=== PATIENT | female | born 1985 | race Caucasian/White ===

== ENCOUNTER 2020-08-14 10:11 | Emergency (ER) | payer OTHER ==
[2020-08-14] MEDS ORDERED: Fluorescein Opthalmic Strip ONE (11:15)
[2020-08-14] MEDS ORDERED: Proparacaine 0.5% Opth 15 ML BOT ONE (11:15)
== END 2020-08-14 12:16 | disposition home or self-care (01) ==
LOC: ERS 10:11
DX: H10.9 Unspecified conjunctivitis (principal); F31.81 Bipolar II disorder; F41.9 Anxiety disorder, unspecified; Z79.899 Other long term (current) drug therapy
CPT/HCPCS: 99283

== ENCOUNTER 2021-03-15 16:24 | Inpatient (IN) | payer OTHER ==
[2021-03-15 17:30] LABS: #Basophils 0.1 thou/uL (0.0-0.2); #Eosinphils 0.2 thou/uL (0.0-0.7); #Monocytes 0.6 thou/uL (0.11-0.59); #Neutrophils 3.8 thou/uL (1.40-6.50); %Basophils 1.1 % (0.0-1.0); %Eosinophils 2.8 % (0.0-10.0); %Monocytes 8.5 % (0.0-10.0); %Neutrophils 57.6 % (42.0-75.0); Mean Corpuscular HGB CONC 30.7 g/dL (32.0-36.0); Mean Corpuscular Hemoglobin 26.4 pg (27.0-31.0); Mean Platelet Volume 7.7 fL (7.4-10.4); Platelet Count 332 thou/uL (130-400); RBC Distribution Width 16.1 % (11.5-14.5); Red Blood Cell (RBC) Count 4.93 mill/uL (4.20-5.40); White Blood Cell (WBC) Count 6.7 thou/uL (4.8-10.8)
[2021-03-15 17:46] LABS: ALT (SGPT) 67 U/L (8-55); AST (SGOT) 53 U/L (5-34); Albumin 3.8 g/dL (3.5-5.0); Alkaline Phosphatase 73 U/L (40-110); Anion Gap 14 mmol/L (10-20); BUN (Urea Nitrogen) 12 mg/dL (7.0-18.7); Bilirubin, Total 0.2 mg/dL (0.2-1.2); Calc. Creatinine Clearance 0 mL/min (70-130); Calcium 9.2 mg/dL (7.8-10.44); Carbon Dioxide 20 mmol/L (22-29); Chloride 109 mmol/L (98-107); Glucose 110 mg/dL (70-105); Potassium 3.7 mmol/L (3.5-5.1); Protein, Total 7.8 g/dL (6.0-8.3); Sodium 139 mmol/L (136-145)
[2021-03-15] MEDS ORDERED: Acetaminophen 325 MG TAB PO PRN (20:35)
[2021-03-15] MEDS ORDERED: Ondansetron ODT 4 MG TAB PO PRN (20:35)
[2021-03-15 21:30] VITALS: BMI 80.9
[2021-03-15] MEDS ORDERED: Ibuprofen 800 MG TAB PO PRN (21:58)
[2021-03-15] MEDS ORDERED: Acetaminophen 500 MG TAB PO PRN (21:58)
[2021-03-15] MEDS ORDERED: hydrOXYzine 25 MG TAB PO PRN (22:30)
[2021-03-16] MEDS: traMADol HCl 50 MG TAB PO PRN ×3 (00:04→20:55)
[2021-03-16 06:01] LABS: #Basophils 0.1 thou/uL (0.0-0.2); #Eosinphils 0.3 thou/uL (0.0-0.7); #Lymphocytes 2.5 thou/uL (1.20-3.40); #Monocytes 0.7 thou/uL (0.11-0.59); %Basophils 1.1 % (0.0-1.0); %Eosinophils 4.2 % (0.0-10.0); %Lymphocytes 38.2 % (21.0-51.0); %Monocytes 10.6 % (0.0-10.0); %Neutrophils 45.9 % (42.0-75.0); Hemoglobin 12.7 g/dL (12.0-16.0); Mean Corpuscular HGB CONC 32.4 g/dL (32.0-36.0); Mean Corpuscular Volume 86.5 fL (78.0-98.0); Mean Platelet Volume 7.6 fL (7.4-10.4); Platelet Count 282 thou/uL (130-400); RBC Distribution Width 16.3 % (11.5-14.5); Red Blood Cell (RBC) Count 4.52 mill/uL (4.20-5.40); White Blood Cell (WBC) Count 6.6 thou/uL (4.8-10.8)
[2021-03-16] MEDS: lamoTRIgine 100 MG TAB PO SCH ×2 (06:22→16:02)
[2021-03-16] MEDS: Topiramate 25 MG TAB PO SCH ×2 (06:28→16:08)
[2021-03-16 06:36] LABS: Anion Gap 8 mmol/L (10-20); BUN (Urea Nitrogen) 10 mg/dL (7.0-18.7); Calc. Creatinine Clearance 345 mL/min (70-130); Calcium 8.8 mg/dL (7.8-10.44); Carbon Dioxide 24 mmol/L (22-29); Chloride 107 mmol/L (98-107); Glucose 123 mg/dL (70-105); Potassium 3.3 mmol/L (3.5-5.1); Sodium 136 mmol/L (136-145)
[2021-03-16] MEDS ORDERED: Potassium Chloride 20 MEQ TAB PO SCH (06:45)
[2021-03-16] MEDS: FLUoxetine HCl 20 MG CAP PO SCH (08:49)
[2021-03-16] MEDS ORDERED: Enoxaparin Sodium 40 MG/0.4 ML SYRINGE SC SCH (09:00)
[2021-03-16] MEDS ORDERED: Morphine 2 MG/ML VIAL SLOW IVP PRN (10:10)
[2021-03-16 12:14] LABS: SARS-CoV-2 PCR by NAA Not Detected (NotDetected)
[2021-03-16] MEDS: Morphine 2 MG/ML VIAL SLOW IVP PRN ×2 (18:41→22:34)
[2021-03-17] MEDS: lamoTRIgine 100 MG TAB PO SCH ×2 (06:21→15:58)
[2021-03-17] MEDS: Topiramate 25 MG TAB PO SCH ×2 (06:22→15:59)
[2021-03-17 06:51] LABS: Hemoglobin A1c 5.7 % (4.0-6.0)
[2021-03-17] MEDS: Morphine 2 MG/ML VIAL SLOW IVP PRN ×4 (07:07→23:11)
[2021-03-17 07:10] LABS: ALT (SGPT) 55 U/L (8-55); AST (SGOT) 44 U/L (5-34); Albumin 3.8 g/dL (3.5-5.0); Alkaline Phosphatase 70 U/L (40-110); Anion Gap 10 mmol/L (10-20); BUN (Urea Nitrogen) 7 mg/dL (7.0-18.7); Bilirubin, Total 0.2 mg/dL (0.2-1.2); Calc. Creatinine Clearance 307 mL/min (70-130); Calcium 8.9 mg/dL (7.8-10.44); Carbon Dioxide 26 mmol/L (22-29); Cardiac Risk 4.2 (Less than 4.5); Chloride 108 mmol/L (98-107); Cholesterol 182 mg/dl (< 200 Desired); Glucose 145 mg/dL (70-105); HDL Cholesterol 43 mg/dL (>60 Neg Risk); LDL Cholesterol, Calculated 113 mg/dL; Potassium 3.7 mmol/L (3.5-5.1); Protein, Total 7.8 g/dL (6.0-8.3); Sodium 140 mmol/L (136-145); Triglycerides 132 mg/dL (Less than 150)
[2021-03-17 07:26] LABS: Ferritin 54.05 ng/mL (10-291)
[2021-03-17 07:27] LABS: Syphilis Antibody Nonreactive (Nonreactive); Syphilis Antibody Index 0.04 S/CO (<1.00 Non-Reactive)
[2021-03-17 07:39] LABS: HBSAg Index 0.27 S/CO (0-0.99); Hep B Surf Ag Non-Reactive S/CO (NonReactive); Hep C IgG Ab Non-Reactive (NonReactive); Hep C Index 0.13 S/CO (0-0.79)
[2021-03-17] MEDS ORDERED: Potassium Chloride 20 MEQ TAB PO SCH (08:00)
[2021-03-17] MEDS: Enoxaparin Sodium 60 MG/0.6 ML SYRINGE SC SCH (08:21)
[2021-03-17] MEDS: FLUoxetine HCl 20 MG CAP PO SCH (08:21)
[2021-03-17 10:35] LABS: Vancomycin, Trough 12.4 ug/mL
[2021-03-17 12:06] LABS: HBSAB Concentration 7.42 mIU/mL; Hep B Surf AB NonReactive (NonReactive)
[2021-03-17] MEDS: traMADol HCl 50 MG TAB PO PRN ×2 (14:35→20:35)
[2021-03-18] MEDS: lamoTRIgine 100 MG TAB PO SCH (05:59)
[2021-03-18] MEDS: Topiramate 25 MG TAB PO SCH (05:59)
[2021-03-18 07:22] VITALS: BP 128/74; TEMP 97.9
[2021-03-18] MEDS: FLUoxetine HCl 20 MG CAP PO SCH (08:09)
[2021-03-18] MEDS: traMADol HCl 50 MG TAB PO PRN (08:09)
[2021-03-18] MEDS: Enoxaparin Sodium 60 MG/0.6 ML SYRINGE SC SCH (08:11)
== END 2021-03-18 15:39 | disposition home or self-care (01) | DRG 603 ==
LOC: ERS 16:24 → T4-B 18:59
PROVIDERS: ADMIT Family Medicine; ATTEND Family Medicine
DX: L03.311 Cellulitis of abdominal wall (principal); Z68.45 Body mass index [BMI] 70 or greater, adult; F31.9 Bipolar disorder, unspecified; F41.9 Anxiety disorder, unspecified; E66.01 Morbid (severe) obesity due to excess calories; K76.0 Fatty (change of) liver, not elsewhere classified; Z20.822 Contact with and (suspected) exposure to COVID-19; Z79.899 Other long term (current) drug therapy; Z90.710 Acquired absence of both cervix and uterus; Z98.1 Arthrodesis status; Z98.51 Tubal ligation status; Z87.891 Personal history of nicotine dependence
CPT/HCPCS: 36415; 76705; 80048; 80053; 80061; 80202; 82728; 83036; 83605; 84702; 85025; 86706; 86780; 86803; 87040; 87070; 87205; 87340; 99284; J1650; J2270; J3370; J7030; U0003; U0005

== ENCOUNTER 2021-03-21 19:16 | Inpatient (IN) | payer OTHER ==
[~2021-03-21 19:16] MED LIST: Iopamidol-370 76% 500 ML 1 ML ONE
[2021-03-21 20:07] LABS: #Basophils 0.1 thou/uL (0.0-0.2); #Eosinphils 0.4 thou/uL (0.0-0.7); #Lymphocytes 2.6 thou/uL (1.20-3.40); #Monocytes 0.6 thou/uL (0.11-0.59); #Neutrophils 4.2 thou/uL (1.40-6.50); %Basophils 1.2 % (0.0-1.0); %Eosinophils 5.1 % (0.0-10.0); %Lymphocytes 32.9 % (21.0-51.0); %Monocytes 7.6 % (0.0-10.0); %Neutrophils 53.2 % (42.0-75.0); Hemoglobin 13.6 g/dL (12.0-16.0); Mean Corpuscular HGB CONC 31.8 g/dL (32.0-36.0); Mean Corpuscular Hemoglobin 27.7 pg (27.0-31.0); Mean Platelet Volume 8.1 fL (7.4-10.4); Platelet Count 314 thou/uL (130-400); White Blood Cell (WBC) Count 7.9 thou/uL (4.8-10.8)
[2021-03-21 20:20] LABS: ALT (SGPT) 58 U/L (8-55); AST (SGOT) 55 U/L (5-34); Albumin 4.2 g/dL (3.5-5.0); Alkaline Phosphatase 77 U/L (40-110); Anion Gap 13 mmol/L (10-20); BUN (Urea Nitrogen) 10 mg/dL (7.0-18.7); Bilirubin, Total 0.4 mg/dL (0.2-1.2); Calc. Creatinine Clearance 0 mL/min (70-130); Calcium 9.5 mg/dL (7.8-10.44); Carbon Dioxide 27 mmol/L (22-29); Chloride 103 mmol/L (98-107); Globulin 3.9 g/dL (2.4-3.5); Glucose 99 mg/dL (70-105); Potassium 3.9 mmol/L (3.5-5.1); Protein, Total 8.1 g/dL (6.0-8.3); Sodium 139 mmol/L (136-145)
[2021-03-21] MEDS ORDERED: Piperacillin/Tazobactam 3.375 GM in Sodium Chloride 0.9% 100 ML IVPB SCH (21:15)
[2021-03-21] MEDS ORDERED: Vancomycin HCl 1.75 GM in Sodium Chloride 0.9% 500 ML IVPB SCH (21:15)
[2021-03-21] MEDS ORDERED: Ondansetron PF 4 MG/2 ML Vial ONE (22:02)
[2021-03-21] MEDS ORDERED: Ketorolac Tromethamine 30 MG/ML VIAL ONE (22:02)
[2021-03-21] MEDS ORDERED: Heparin 10,000 UNITS/ 10 ML VIAL ONE (22:23)
[2021-03-21] MEDS ORDERED: Metoprolol Tartrate 5 MG/5 ML VIAL ONE (22:23)
[2021-03-21] MEDS ORDERED: Ondansetron ODT 4 MG TAB PO PRN (22:36)
[2021-03-21] MEDS ORDERED: Acetaminophen 325 MG TAB PO PRN (22:36)
[2021-03-21] MEDS ORDERED: Acetaminophen 500 MG TAB ONE (22:52)
[2021-03-22 00:30] VITALS: BMI 70.8
[2021-03-22] MEDS: Morphine 4 MG/ML VIAL SLOW IVP PRN ×4 (01:10→19:21)
[2021-03-22] MEDS: Morphine 2 MG/ML VIAL SLOW IVP PRN ×2 (03:54→21:45)
[2021-03-22] MEDS ORDERED: Promethazine 25 MG TAB PO PRN (08:09)
[2021-03-22 08:28] LABS: #Basophils 0.1 thou/uL (0.0-0.2); #Eosinphils 0.3 thou/uL (0.0-0.7); #Lymphocytes 2.2 thou/uL (1.20-3.40); #Monocytes 0.9 thou/uL (0.11-0.59); #Neutrophils 4.3 thou/uL (1.40-6.50); %Basophils 0.7 % (0.0-1.0); %Eosinophils 4.2 % (0.0-10.0); %Lymphocytes 28.6 % (21.0-51.0); %Monocytes 10.8 % (0.0-10.0); %Neutrophils 55.6 % (42.0-75.0); Hemoglobin 12.9 g/dL (12.0-16.0); Mean Corpuscular HGB CONC 30.9 g/dL (32.0-36.0); Mean Corpuscular Hemoglobin 27.4 pg (27.0-31.0); Mean Corpuscular Volume 88.6 fL (78.0-98.0); Platelet Count 285 thou/uL (130-400); RBC Distribution Width 16.1 % (11.5-14.5); Red Blood Cell (RBC) Count 4.71 mill/uL (4.20-5.40); White Blood Cell (WBC) Count 7.8 thou/uL (4.8-10.8)
[2021-03-22] MEDS: Enoxaparin Sodium 40 MG/0.4 ML SYRINGE SC SCH (08:31)
[2021-03-22 08:46] LABS: Anion Gap 13 mmol/L (10-20); BUN (Urea Nitrogen) 11 mg/dL (7.0-18.7); Calc. Creatinine Clearance 298 mL/min (70-130); Calcium 9.2 mg/dL (7.8-10.44); Carbon Dioxide 27 mmol/L (22-29); Chloride 100 mmol/L (98-107); Glucose 99 mg/dL (70-105); Potassium 3.5 mmol/L (3.5-5.1); Sodium 136 mmol/L (136-145)
[2021-03-23] MEDS: Morphine 4 MG/ML VIAL SLOW IVP PRN ×4 (00:47→17:52)
[2021-03-23] MEDS: Morphine 2 MG/ML VIAL SLOW IVP PRN (03:34)
[2021-03-23] MEDS ORDERED: Fentanyl 100 MCG/2 ML VIAL SLOW IVP SCH (05:00)
[2021-03-23] MEDS: Enoxaparin Sodium 40 MG/0.4 ML SYRINGE SC SCH (09:50)
[2021-03-23] MEDS: Vancomycin HCl 1.75 GM in Sodium Chloride 0.9% 500 ML IVPB SCH ×2 (10:44→17:53)
[2021-03-23] MEDS: Topiramate 25 MG TAB PO SCH (16:11)
[2021-03-23] MEDS: lamoTRIgine 100 MG TAB PO SCH (16:12)
[2021-03-23] MEDS ORDERED: Non-Formulary Item 1 EACH (Topiramate [Topiramate] 50 MG Tablet) PO SCH (16:30)
[2021-03-23] MEDS ORDERED: Non-Formulary Item 1 EACH (Lamotrigine [Lamictal] 150 MG Tablet) PO SCH (16:30)
[2021-03-23] MEDS: hydrOXYzine 25 MG TAB PO PRN (20:25)
[2021-03-23] MEDS ORDERED: Non-Formulary Item 1 EACH (Omeprazole [Omeprazole] 20 MG Capsule.Dr) PO SCH (21:00)
[2021-03-24] MEDS: Morphine 4 MG/ML VIAL SLOW IVP PRN (00:49)
[2021-03-24] MEDS: Vancomycin HCl 1.75 GM in Sodium Chloride 0.9% 500 ML IVPB SCH ×3 (01:03→17:34)
[2021-03-24 06:10] LABS: #Basophils 0.1 thou/uL (0.0-0.2); #Eosinphils 0.5 thou/uL (0.0-0.7); #Lymphocytes 1.7 thou/uL (1.20-3.40); #Monocytes 0.7 thou/uL (0.11-0.59); #Neutrophils 4.5 thou/uL (1.40-6.50); %Basophils 1.2 % (0.0-1.0); %Eosinophils 6.5 % (0.0-10.0); %Lymphocytes 23.3 % (21.0-51.0); %Monocytes 9.3 % (0.0-10.0); %Neutrophils 59.7 % (42.0-75.0); Hemoglobin 13.5 g/dL (12.0-16.0); Mean Corpuscular HGB CONC 31.5 g/dL (32.0-36.0); Mean Corpuscular Hemoglobin 28.3 pg (27.0-31.0); Mean Corpuscular Volume 89.7 fL (78.0-98.0); Mean Platelet Volume 8.2 fL (7.4-10.4); Platelet Count 250 thou/uL (130-400); RBC Distribution Width 16.2 % (11.5-14.5); Red Blood Cell (RBC) Count 4.77 mill/uL (4.20-5.40); White Blood Cell (WBC) Count 7.5 thou/uL (4.8-10.8)
[2021-03-24 08:21] LABS: Anion Gap 18 mmol/L (10-20); BUN (Urea Nitrogen) 8 mg/dL (7.0-18.7); Calc. Creatinine Clearance 294 mL/min (70-130); Calcium 8.9 mg/dL (7.8-10.44); Carbon Dioxide 20 mmol/L (22-29); Chloride 109 mmol/L (98-107); Glucose 151 mg/dL (70-105); Potassium 4.3 mmol/L (3.5-5.1); Sodium 143 mmol/L (136-145)
[2021-03-24] MEDS: FLUoxetine HCl 20 MG CAP PO SCH (08:31)
[2021-03-24] MEDS: Enoxaparin Sodium 40 MG/0.4 ML SYRINGE SC SCH (08:32)
[2021-03-24] MEDS: lamoTRIgine 100 MG TAB PO SCH ×2 (08:32→17:34)
[2021-03-24] MEDS: Topiramate 25 MG TAB PO SCH ×2 (08:32→15:27)
[2021-03-24] MEDS ORDERED: Non-Formulary Item 1 EACH (Fluoxetine Hcl [Prozac] 40 MG Capsule) PO SCH (09:00)
[2021-03-24] MEDS: Morphine 2 MG/ML VIAL SLOW IVP PRN ×3 (11:35→21:41)
[2021-03-24 12:27] LABS: Vancomycin, Trough 14.9 ug/mL
[2021-03-24] MEDS ORDERED: Fluconazole 100 MG TAB PO SCH (14:15)
[2021-03-24] MEDS: hydrOXYzine 25 MG TAB PO PRN (20:28)
[2021-03-25] MEDS: Vancomycin HCl 1.75 GM in Sodium Chloride 0.9% 500 ML IVPB SCH (01:27)
[2021-03-25] MEDS: Morphine 2 MG/ML VIAL SLOW IVP PRN (05:43)
[2021-03-25] MEDS ORDERED: Morphine 2 MG/ML VIAL SLOW IVP PRN (07:26)
[2021-03-25] MEDS ORDERED: Loperamide HCl 1 MG/7.5 ML UDCUP PO PRN (07:29)
[2021-03-25] MEDS: FLUoxetine HCl 20 MG CAP PO SCH (08:21)
[2021-03-25] MEDS: Topiramate 25 MG TAB PO SCH (08:22)
[2021-03-25] MEDS: lamoTRIgine 100 MG TAB PO SCH (08:22)
[2021-03-25] MEDS: Enoxaparin Sodium 40 MG/0.4 ML SYRINGE SC SCH (08:23)
[2021-03-25] MEDS ORDERED: Clindamycin 150 MG CAP PO SCH (09:00)
[2021-03-25] MEDS ORDERED: traMADol HCl 50 MG TAB PO PRN (10:17)
[2021-03-25 14:51] VITALS: BP 152/92; TEMP 98.1
== END 2021-03-25 15:17 | disposition home or self-care (01) | DRG 872 ==
LOC: ERS 19:16 → T4-B 23:36
PROVIDERS: ADMIT Family Medicine; ATTEND Family Medicine
DX: A41.9 Sepsis, unspecified organism (principal); F31.81 Bipolar II disorder; Z68.45 Body mass index [BMI] 70 or greater, adult; L03.311 Cellulitis of abdominal wall; M79.3 Panniculitis, unspecified; E66.01 Morbid (severe) obesity due to excess calories; F41.9 Anxiety disorder, unspecified; Z90.49 Acquired absence of other specified parts of digestive tract; Z79.899 Other long term (current) drug therapy; Z98.1 Arthrodesis status; Z90.710 Acquired absence of both cervix and uterus; Z98.51 Tubal ligation status; Z87.891 Personal history of nicotine dependence
CPT/HCPCS: 36415; 74177; 80048; 80053; 80202; 83605; 84145; 85025; 87040; 93005; 96365; 96375; J1644; J1650; J1885; J2270; J2405; J2543; J3010; J3370; J3490; J7030; Q0162; Q9967

== ENCOUNTER 2021-04-19 22:24 | Inpatient (IN) | payer OTHER ==
[2021-04-19 23:07] LABS: #Basophils 0.1 thou/uL (0.0-0.2); #Eosinphils 0.3 thou/uL (0.0-0.7); #Lymphocytes 2.8 thou/uL (1.20-3.40); #Monocytes 0.6 thou/uL (0.11-0.59); #Neutrophils 5.5 thou/uL (1.40-6.50); %Basophils 0.9 % (0.0-1.0); %Eosinophils 2.9 % (0.0-10.0); %Lymphocytes 29.9 % (21.0-51.0); %Monocytes 6.5 % (0.0-10.0); %Neutrophils 59.8 % (42.0-75.0); Mean Corpuscular HGB CONC 31.3 g/dL (32.0-36.0); Mean Corpuscular Hemoglobin 27.7 pg (27.0-31.0); Mean Corpuscular Volume 88.6 fL (78.0-98.0); Mean Platelet Volume 8.3 fL (7.4-10.4); Platelet Count 331 thou/uL (130-400); RBC Distribution Width 15.9 % (11.5-14.5); White Blood Cell (WBC) Count 9.2 thou/uL (4.8-10.8)
[2021-04-19] MEDS ORDERED: Cefepime 2 GM VIAL ONE (23:14)
[2021-04-19] MEDS ORDERED: Ketorolac Tromethamine 30 MG/ML VIAL ONE (23:14)
[2021-04-19 23:28] LABS: ALT (SGPT) 65 U/L (8-55); AST (SGOT) 70 U/L (5-34); Albumin 3.7 g/dL (3.5-5.0); Alkaline Phosphatase 72 U/L (40-110); Anion Gap 14 mmol/L (10-20); BUN (Urea Nitrogen) 12 mg/dL (7.0-18.7); Bilirubin, Total 0.3 mg/dL (0.2-1.2); CK (CPK) 66 U/L (29-168); Calc. Creatinine Clearance 0 mL/min (70-130); Calcium 9.2 mg/dL (7.8-10.44); Carbon Dioxide 22 mmol/L (22-29); Chloride 105 mmol/L (98-107); Globulin 4.6 g/dL (2.4-3.5); Glucose 93 mg/dL (70-105); Potassium 4.5 mmol/L (3.5-5.1); Protein, Total 8.3 g/dL (6.0-8.3); Sodium 136 mmol/L (136-145)
[2021-04-19] MEDS ORDERED: Acetaminophen 500 MG TAB ONE (23:59)
[2021-04-19] MEDS ORDERED: hydrOXYzine 25 MG TAB ONE (23:59)
[2021-04-20] MEDS ORDERED: Lactated Ringer's 1,000 ML IV SCH (00:45)
[2021-04-20] MEDS ORDERED: hydrOXYzine 25 MG TAB PO SCH (01:15)
[2021-04-20 02:03] VITALS: BMI 78.1
[2021-04-20] MEDS: Topiramate 25 MG TAB PO SCH ×2 (08:21→17:29)
[2021-04-20] MEDS: Enoxaparin Sodium 60 MG/0.6 ML SYRINGE SC SCH ×2 (08:21→22:23)
[2021-04-20] MEDS: lamoTRIgine 100 MG TAB PO SCH ×2 (08:22→17:29)
[2021-04-20] MEDS: FLUoxetine HCl 20 MG CAP PO SCH (08:22)
[2021-04-20] MEDS: Morphine 2 MG/ML VIAL SLOW IVP PRN ×4 (08:23→22:22)
[2021-04-20] MEDS: Vancomycin HCl 1.75 GM in Sodium Chloride 0.9% 500 ML IVPB SCH ×2 (08:24→17:45)
[2021-04-20] MEDS ORDERED: hydrOXYzine 25 MG TAB PO PRN (09:00)
[2021-04-20] MEDS ORDERED: diphenhydrAMINE 25 MG CAP PO PRN (10:38)
[2021-04-20 12:33] LABS: SARS-CoV-2 PCR by NAA Not Detected (NotDetected)
[2021-04-20] MEDS: Nystatin Powder 15 GM BOT TOP SCH ×2 (15:55→22:23)
[2021-04-20 23:16] LABS: Vancomycin, Trough 15.3 ug/mL
[2021-04-21] MEDS: Vancomycin HCl 1.75 GM in Sodium Chloride 0.9% 500 ML IVPB SCH ×4 (00:14→23:36)
[2021-04-21] MEDS: Morphine 2 MG/ML VIAL SLOW IVP PRN ×5 (02:24→18:09)
[2021-04-21] MEDS: FLUoxetine HCl 20 MG CAP PO SCH (08:50)
[2021-04-21] MEDS: lamoTRIgine 100 MG TAB PO SCH ×2 (08:50→17:24)
[2021-04-21] MEDS: Enoxaparin Sodium 60 MG/0.6 ML SYRINGE SC SCH ×2 (08:53→19:49)
[2021-04-21] MEDS: Nystatin Powder 15 GM BOT TOP SCH ×3 (08:56→19:49)
[2021-04-21 09:21] LABS: Hemoglobin 14.1 g/dL (12.0-16.0); Platelet Count 339 thou/uL (130-400)
[2021-04-21 09:39] LABS: Calc. Creatinine Clearance 338 mL/min (70-130)
[2021-04-21] MEDS: Topiramate 25 MG TAB PO SCH ×2 (09:52→18:03)
[2021-04-22] MEDS: Morphine 2 MG/ML VIAL SLOW IVP PRN ×4 (00:09→14:41)
[2021-04-22] MEDS: FLUoxetine HCl 20 MG CAP PO SCH (08:18)
[2021-04-22] MEDS: Enoxaparin Sodium 60 MG/0.6 ML SYRINGE SC SCH (08:18)
[2021-04-22] MEDS: lamoTRIgine 100 MG TAB PO SCH ×2 (08:19→16:33)
[2021-04-22] MEDS: Topiramate 25 MG TAB PO SCH (08:21)
[2021-04-22] MEDS: Nystatin Powder 15 GM BOT TOP SCH ×2 (08:48→16:33)
[2021-04-22] MEDS: Vancomycin HCl 1.75 GM in Sodium Chloride 0.9% 500 ML IVPB SCH ×2 (09:54→16:32)
[2021-04-22 15:39] VITALS: BP 129/83; TEMP 98.1
== END 2021-04-22 18:56 | disposition home or self-care (01) | DRG 872 ==
LOC: ERS 22:24 → 2NO 22:59 → SURG A 04-20 18:33 → 2NO 04-20 18:52 → SURG A 04-20 20:50
PROVIDERS: ADMIT Family Medicine; ATTEND Family Medicine
DX: A41.9 Sepsis, unspecified organism (principal); Z68.45 Body mass index [BMI] 70 or greater, adult; F31.9 Bipolar disorder, unspecified; R74.01 Elevation of levels of liver transaminase levels; F41.9 Anxiety disorder, unspecified; L30.4 Erythema intertrigo; Z20.822 Contact with and (suspected) exposure to COVID-19; E66.01 Morbid (severe) obesity due to excess calories; Z79.899 Other long term (current) drug therapy; Z90.49 Acquired absence of other specified parts of digestive tract; Z90.710 Acquired absence of both cervix and uterus; Z98.51 Tubal ligation status; Z98.1 Arthrodesis status
CPT/HCPCS: 36415; 71045; 76705; 80053; 80202; 82550; 82565; 83605; 85014; 85018; 85025; 85049; 85520; 87040; 87070; 87205; 93005; 96365; 96367; 96374; J0692; J1650; J1885; J2270; J3370; J7030; U0003; U0005

== ENCOUNTER 2021-05-22 09:43 | Inpatient (IN) | payer OTHER ==
[2021-05-22 11:54] LABS: #Eosinphils 0.3 thou/uL (0.0-0.7); #Lymphocytes 2.4 thou/uL (1.20-3.40); #Monocytes 0.7 thou/uL (0.11-0.59); #Neutrophils 7.3 thou/uL (1.40-6.50); %Basophils 0.4 % (0.0-1.0); %Eosinophils 2.6 % (0.0-10.0); %Lymphocytes 22.9 % (21.0-51.0); %Monocytes 6.2 % (0.0-10.0); Mean Corpuscular HGB CONC 31.6 g/dL (32.0-36.0); Mean Corpuscular Hemoglobin 28.2 pg (27.0-31.0); Mean Corpuscular Volume 89.3 fL (78.0-98.0); Mean Platelet Volume 8.1 fL (7.4-10.4); Platelet Count 311 thou/uL (130-400); RBC Distribution Width 15.2 % (11.5-14.5); White Blood Cell (WBC) Count 10.7 thou/uL (4.8-10.8)
[2021-05-22 12:14] LABS: ALT (SGPT) 84 U/L (8-55); AST (SGOT) 80 U/L (5-34); Albumin 3.8 g/dL (3.5-5.0); Alkaline Phosphatase 94 U/L (40-110); Anion Gap 12 mmol/L (10-20); BUN (Urea Nitrogen) 11 mg/dL (7.0-18.7); Bilirubin, Total 0.3 mg/dL (0.2-1.2); Calc. Creatinine Clearance 0 mL/min (70-130); Calcium 9.2 mg/dL (7.8-10.44); Carbon Dioxide 27 mmol/L (22-29); Chloride 102 mmol/L (98-107); Glucose 133 mg/dL (70-105); Potassium 4.4 mmol/L (3.5-5.1); Protein, Total 7.8 g/dL (6.0-8.3); Sodium 137 mmol/L (136-145)
[2021-05-22] MEDS ORDERED: Morphine 4 MG/ML VIAL ONE ×3 (12:36→19:41)
[2021-05-22] MEDS ORDERED: Ondansetron PF 4 MG/2 ML Vial ONE (12:36)
[2021-05-22] MEDS ORDERED: Cefepime 2 GM VIAL ONE (12:37)
[2021-05-22] MEDS ORDERED: Ondansetron ODT 4 MG TAB PO PRN (17:07)
[2021-05-22] MEDS ORDERED: Acetaminophen 325 MG TAB PO PRN (17:07)
[2021-05-22] MEDS ORDERED: HYDROcodone/Acetaminophen 5/325 mg Tablet PO PRN (19:12)
[2021-05-22] MEDS ORDERED: hydrOXYzine 25 MG TAB PO PRN (19:12)
[2021-05-22] MEDS ORDERED: Diclofenac 1% 100 GM GEL TP PRN (19:12)
[2021-05-22] MEDS ORDERED: Nitroglycerin 0.4 MG TAB (25 Tab Bottle) SL SCH (19:15)
[2021-05-22] MEDS: Morphine 4 MG/ML VIAL SLOW IVP PRN (19:45)
[2021-05-22] MEDS ORDERED: Fioricet 325/50/40 mg Tablet PO PRN (21:37)
[2021-05-22 21:57] LABS: SARS-CoV-2 NAA Rapid Test Not Detected (NotDetected)
[2021-05-23] MEDS ORDERED: Morphine 4 MG/ML VIAL ONE ×4 (01:02→15:06)
[2021-05-23] MEDS: Morphine 4 MG/ML VIAL SLOW IVP PRN ×4 (01:08→15:32)
[2021-05-23] MEDS ORDERED: Ondansetron ODT 4 MG TAB PO PRN (02:05)
[2021-05-23] MEDS: Fluconazole 100 MG TAB PO SCH ×2 (03:08→10:45)
[2021-05-23 06:20] LABS: #Basophils 0.1 thou/uL (0.0-0.2); #Eosinphils 0.3 thou/uL (0.0-0.7); #Lymphocytes 2.1 thou/uL (1.20-3.40); #Monocytes 0.8 thou/uL (0.11-0.59); #Neutrophils 6.3 thou/uL (1.40-6.50); %Basophils 0.7 % (0.0-1.0); %Eosinophils 2.9 % (0.0-10.0); %Lymphocytes 21.8 % (21.0-51.0); %Monocytes 8.7 % (0.0-10.0); %Neutrophils 65.9 % (42.0-75.0); Hemoglobin 12.5 g/dL (12.0-16.0); Mean Corpuscular HGB CONC 31.6 g/dL (32.0-36.0); Mean Corpuscular Hemoglobin 28.5 pg (27.0-31.0); Mean Corpuscular Volume 90.2 fL (78.0-98.0); Mean Platelet Volume 7.9 fL (7.4-10.4); Platelet Count 312 thou/uL (130-400); RBC Distribution Width 15.3 % (11.5-14.5); Red Blood Cell (RBC) Count 4.39 mill/uL (4.20-5.40); White Blood Cell (WBC) Count 9.5 thou/uL (4.8-10.8)
[2021-05-23 06:41] LABS: Anion Gap 13 mmol/L (10-20); BUN (Urea Nitrogen) 11 mg/dL (7.0-18.7); Calc. Creatinine Clearance 0 mL/min (70-130); Calcium 9.2 mg/dL (7.8-10.44); Carbon Dioxide 28 mmol/L (22-29); Chloride 101 mmol/L (98-107); Glucose 130 mg/dL (70-105); Potassium 4.1 mmol/L (3.5-5.1); Sodium 138 mmol/L (136-145)
[2021-05-23] MEDS ORDERED: Acetaminophen 325 MG TAB ONE ×3 (06:57→15:44)
[2021-05-23] MEDS ORDERED: Enoxaparin Sodium 40 MG/0.4 ML SYRINGE ONE (08:26)
[2021-05-23] MEDS: lamoTRIgine 100 MG TAB PO SCH ×2 (08:52→18:47)
[2021-05-23] MEDS: Topiramate 25 MG TAB PO SCH ×2 (08:52→17:30)
[2021-05-23] MEDS ORDERED: Enoxaparin Sodium 40 MG/0.4 ML SYRINGE SC SCH ×2 (09:00)
[2021-05-23] MEDS ORDERED: diphenhydrAMINE 25 MG in Sodium Chloride 0.9% 50 ML IVPB PRN (10:23)
[2021-05-23] MEDS ORDERED: Ibuprofen 600 MG TAB PO PRN (10:30)
[2021-05-23] MEDS ORDERED: Acetaminophen 325 MG TAB PO PRN (10:33)
[2021-05-23] MEDS: Furosemide 20 MG TAB PO SCH (10:44)
[2021-05-23] MEDS: FLUoxetine HCl 20 MG CAP PO SCH (10:44)
[2021-05-23] MEDS: metFORMIN 500 MG TAB PO SCH (10:44)
[2021-05-23] MEDS ORDERED: hydrOXYzine 25 MG TAB ONE (15:44)
[2021-05-23] MEDS ORDERED: Clindamycin/D5W 600 mg/50 ml Premix Bag ONE (15:44)
[2021-05-23] MEDS ORDERED: Ibuprofen 200 MG TAB ONE (15:44)
[2021-05-23] MEDS: Acetaminophen 325 MG TAB PO SCH ×2 (16:05→18:41)
[2021-05-23] MEDS: hydrOXYzine 25 MG TAB PO SCH ×3 (16:06→20:23)
[2021-05-23] MEDS: Ibuprofen 600 MG TAB PO SCH ×2 (16:06→20:24)
[2021-05-23] MEDS: Clindamycin/D5W 600 MG in Premix Bag 1 BAG IVPB SCH ×2 (16:31→22:15)
[2021-05-23] MEDS: Enoxaparin Sodium 30 MG/0.3 ML SYRINGE SC SCH (20:21)
[2021-05-23] MEDS: Gabapentin 100 MG CAP PO SCH (20:22)
[2021-05-23] MEDS ORDERED: Gabapentin 300 MG CAP PO SCH (21:00)
[2021-05-23 21:46] VITALS: BMI 77.3
[2021-05-23] MEDS: Silver Sulfadiazine 50 GM TUBE TOP SCH (21:47)
[2021-05-24] MEDS: Acetaminophen 325 MG TAB PO SCH ×4 (00:23→18:43)
[2021-05-24] MEDS: Ibuprofen 600 MG TAB PO SCH ×4 (02:37→21:41)
[2021-05-24] MEDS: Clindamycin/D5W 600 MG in Premix Bag 1 BAG IVPB SCH (05:03)
[2021-05-24] MEDS ORDERED: diphenhydrAMINE 50 MG/ML VIAL IVP SCH (06:19)
[2021-05-24 07:01] LABS: ALT (SGPT) 73 U/L (8-55); AST (SGOT) 64 U/L (5-34); Albumin 3.2 g/dL (3.5-5.0); Alkaline Phosphatase 79 U/L (40-110); Bilirubin, Direct 0.1 mg/dL (0.1-0.3); Bilirubin, Total 0.2 mg/dL (0.2-1.2); Protein, Total 7.2 g/dL (6.0-8.3)
[2021-05-24] MEDS: Gabapentin 100 MG CAP PO SCH ×2 (08:27→21:40)
[2021-05-24] MEDS: Furosemide 20 MG TAB PO SCH (08:27)
[2021-05-24] MEDS: FLUoxetine HCl 20 MG CAP PO SCH (08:27)
[2021-05-24] MEDS: hydrOXYzine 25 MG TAB PO SCH ×4 (08:28→21:42)
[2021-05-24] MEDS: Enoxaparin Sodium 30 MG/0.3 ML SYRINGE SC SCH ×2 (08:28→21:40)
[2021-05-24] MEDS: metFORMIN 500 MG TAB PO SCH (08:28)
[2021-05-24] MEDS: lamoTRIgine 100 MG TAB PO SCH ×2 (08:28→17:36)
[2021-05-24] MEDS: Topiramate 25 MG TAB PO SCH ×2 (08:29→16:48)
[2021-05-24] MEDS: Silver Sulfadiazine 50 GM TUBE TOP SCH ×2 (08:29→21:43)
[2021-05-24] MEDS ORDERED: Silver Nitrate Application 1 EACH TOP PRN (11:29)
[2021-05-24] MEDS: Clindamycin/D5W 900 MG in Premix Bag 1 BAG IVPB SCH ×2 (14:11→21:44)
[2021-05-25] MEDS: Acetaminophen 325 MG TAB PO SCH ×5 (00:18→23:29)
[2021-05-25 02:15] LABS: Vancomycin, Trough 7.9 ug/mL
[2021-05-25] MEDS: Ibuprofen 600 MG TAB PO SCH ×4 (03:31→20:48)
[2021-05-25] MEDS: Clindamycin/D5W 900 MG in Premix Bag 1 BAG IVPB SCH ×3 (05:47→20:49)
[2021-05-25] MEDS: Topiramate 25 MG TAB PO SCH ×2 (05:47→17:30)
[2021-05-25] MEDS: lamoTRIgine 100 MG TAB PO SCH ×2 (05:49→17:26)
[2021-05-25] MEDS: Enoxaparin Sodium 30 MG/0.3 ML SYRINGE SC SCH ×2 (10:54→20:48)
[2021-05-25] MEDS: FLUoxetine HCl 20 MG CAP PO SCH (10:57)
[2021-05-25] MEDS: Gabapentin 100 MG CAP PO SCH ×2 (10:57→20:49)
[2021-05-25] MEDS: Furosemide 20 MG TAB PO SCH (10:57)
[2021-05-25] MEDS: hydrOXYzine 25 MG TAB PO SCH ×4 (10:58→20:48)
[2021-05-25] MEDS: metFORMIN 500 MG TAB PO SCH (10:58)
[2021-05-25] MEDS: Silver Sulfadiazine 50 GM TUBE TOP SCH ×3 (10:59→20:56)
[2021-05-25 13:23] LABS: Anion Gap 14 mmol/L (10-20); BUN (Urea Nitrogen) 9 mg/dL (7.0-18.7); Calc. Creatinine Clearance 354 mL/min (70-130); Calcium 9.1 mg/dL (7.8-10.44); Carbon Dioxide 27 mmol/L (22-29); Chloride 101 mmol/L (98-107); Glucose 127 mg/dL (70-105); Sodium 138 mmol/L (136-145)
[2021-05-26 01:11] LABS: Vancomycin, Trough 13.4 ug/mL
[2021-05-26] MEDS: Ibuprofen 600 MG TAB PO SCH ×5 (02:03→20:55)
[2021-05-26] MEDS: Topiramate 25 MG TAB PO SCH ×2 (05:19→16:24)
[2021-05-26] MEDS: Acetaminophen 325 MG TAB PO SCH ×4 (05:25→23:46)
[2021-05-26] MEDS: Clindamycin/D5W 900 MG in Premix Bag 1 BAG IVPB SCH ×4 (05:39→20:55)
[2021-05-26] MEDS ORDERED: lamoTRIgine 100 MG TAB PO SCH (09:00)
[2021-05-26] MEDS: Gabapentin 100 MG CAP PO SCH ×2 (09:13→20:54)
[2021-05-26] MEDS: FLUoxetine HCl 20 MG CAP PO SCH (09:13)
[2021-05-26] MEDS: metFORMIN 500 MG TAB PO SCH (09:13)
[2021-05-26] MEDS: Furosemide 20 MG TAB PO SCH (09:14)
[2021-05-26] MEDS: hydrOXYzine 25 MG TAB PO SCH ×4 (09:14→20:55)
[2021-05-26] MEDS: Enoxaparin Sodium 30 MG/0.3 ML SYRINGE SC SCH ×2 (09:14→20:54)
[2021-05-26] MEDS: Silver Sulfadiazine 50 GM TUBE TOP SCH ×2 (09:16→20:55)
[2021-05-26] MEDS: lamoTRIgine 100 MG TAB PO SCH ×2 (09:18→16:22)
[2021-05-27] MEDS: Ibuprofen 600 MG TAB PO SCH ×2 (04:05→10:15)
[2021-05-27] MEDS: lamoTRIgine 100 MG TAB PO SCH (06:30)
[2021-05-27] MEDS: Clindamycin/D5W 900 MG in Premix Bag 1 BAG IVPB SCH (06:30)
[2021-05-27] MEDS: Acetaminophen 325 MG TAB PO SCH (06:31)
[2021-05-27] MEDS: Topiramate 25 MG TAB PO SCH (06:57)
[2021-05-27] MEDS: FLUoxetine HCl 20 MG CAP PO SCH (10:14)
[2021-05-27] MEDS: Enoxaparin Sodium 30 MG/0.3 ML SYRINGE SC SCH (10:14)
[2021-05-27] MEDS: Gabapentin 100 MG CAP PO SCH (10:15)
[2021-05-27] MEDS: metFORMIN 500 MG TAB PO SCH (10:15)
[2021-05-27] MEDS: hydrOXYzine 25 MG TAB PO SCH (10:16)
[2021-05-27] MEDS: Furosemide 20 MG TAB PO SCH (10:16)
[2021-05-27 12:08] VITALS: BP 128/80; TEMP 98
== END 2021-05-27 11:30 | disposition home or self-care (01) | DRG 603 ==
LOC: ERS 09:43 → OBSVTOIN 16:30 → ERHOLD 16:30 → SURG A 05-23 18:36
PROVIDERS: ADMIT Student in an Organized Health Care Education/Training Program; ATTEND Student in an Organized Health Care Education/Training Program
DX: L03.311 Cellulitis of abdominal wall (principal); Z68.45 Body mass index [BMI] 70 or greater, adult; L30.4 Erythema intertrigo; M79.3 Panniculitis, unspecified; Z20.822 Contact with and (suspected) exposure to COVID-19; F31.9 Bipolar disorder, unspecified; F41.9 Anxiety disorder, unspecified; F17.210 Nicotine dependence, cigarettes, uncomplicated; R73.03 Prediabetes; E66.01 Morbid (severe) obesity due to excess calories; K76.0 Fatty (change of) liver, not elsewhere classified; R03.0 Elevated blood-pressure reading, without diagnosis of hypertension; Z79.899 Other long term (current) drug therapy; Z79.84 Long term (current) use of oral hypoglycemic drugs; Z90.49 Acquired absence of other specified parts of digestive tract; Z98.51 Tubal ligation status; Z90.710 Acquired absence of both cervix and uterus
CPT/HCPCS: 36415; 36416; 76705; 80048; 80053; 80076; 80202; 83605; 85025; 86140; 87040; 96365; 96366; 96367; 96375; 96376; J0692; J1200; J1650; J2270; J2405; J3370; J3490; J7030; U0002; U0005

== ENCOUNTER 2021-06-10 23:30 | Emergency (ER) | payer OTHER ==
[2021-06-11] MEDS ORDERED: Clindamycin/D5W 600 mg/50 ml Premix Bag ONE (00:09)
[2021-06-11 00:20] LABS: #Basophils 0.1 thou/uL (0.0-0.2); #Eosinphils 0.3 thou/uL (0.0-0.7); #Lymphocytes 2.6 thou/uL (1.20-3.40); #Monocytes 0.8 thou/uL (0.11-0.59); #Neutrophils 7.5 thou/uL (1.40-6.50); %Basophils 0.5 % (0.0-1.0); %Eosinophils 2.5 % (0.0-10.0); %Lymphocytes 23.1 % (21.0-51.0); %Monocytes 7.5 % (0.0-10.0); %Neutrophils 66.4 % (42.0-75.0); Hemoglobin 12.6 g/dL (12.0-16.0); Mean Corpuscular HGB CONC 32.6 g/dL (32.0-36.0); Mean Corpuscular Hemoglobin 29.4 pg (27.0-31.0); Mean Corpuscular Volume 90.4 fL (78.0-98.0); Platelet Count 296 thou/uL (130-400); RBC Distribution Width 14.8 % (11.5-14.5); Red Blood Cell (RBC) Count 4.26 mill/uL (4.20-5.40); White Blood Cell (WBC) Count 11.2 thou/uL (4.8-10.8)
[2021-06-11 00:41] LABS: ALT (SGPT) 54 U/L (8-55); AST (SGOT) 44 U/L (5-34); Albumin 3.5 g/dL (3.5-5.0); Alkaline Phosphatase 79 U/L (40-110); Anion Gap 12 mmol/L (10-20); BUN (Urea Nitrogen) 18 mg/dL (7.0-18.7); Bilirubin, Total 0.2 mg/dL (0.2-1.2); Calc. Creatinine Clearance 0 mL/min (70-130); Calcium 9.3 mg/dL (7.8-10.44); Carbon Dioxide 28 mmol/L (22-29); Chloride 103 mmol/L (98-107); Globulin 4.3 g/dL (2.4-3.5); Glucose 186 mg/dL (70-105); Potassium 4.1 mmol/L (3.5-5.1); Protein, Total 7.8 g/dL (6.0-8.3); Sodium 139 mmol/L (136-145)
[2021-06-11] MEDS ORDERED: Ketorolac Tromethamine 30 MG/ML VIAL ONE (00:46)
[2021-06-11] MEDS ORDERED: Morphine 4 MG/ML VIAL ONE (01:07)
[2021-06-11] MEDS ORDERED: Ondansetron PF 4 MG/2 ML Vial ONE (01:07)
== END 2021-06-11 01:40 | disposition home or self-care (01) ==
LOC: ERS 23:30
DX: L03.311 Cellulitis of abdominal wall (principal); R00.0 Tachycardia, unspecified; M79.3 Panniculitis, unspecified; E66.01 Morbid (severe) obesity due to excess calories; R73.03 Prediabetes; Z68.45 Body mass index [BMI] 70 or greater, adult
CPT/HCPCS: 36415; 80053; 83605; 85025; 87040; 93005; 96365; 96375; J1885; J2270; J2405; J3490

== ENCOUNTER 2021-06-16 16:18 | Inpatient (IN) | payer OTHER ==
[2021-06-16] MEDS ORDERED: Ondansetron PF 4 MG/2 ML Vial ONE (17:05)
[2021-06-16] MEDS ORDERED: Morphine 4 MG/ML VIAL ONE (17:05)
[2021-06-16] MEDS ORDERED: Cefepime 2 GM VIAL ONE (17:05)
[2021-06-16 17:15] LABS: #Basophils 0.1 thou/uL (0.0-0.2); #Eosinphils 0.3 thou/uL (0.0-0.7); #Lymphocytes 2.2 thou/uL (1.20-3.40); #Monocytes 0.7 thou/uL (0.11-0.59); #Neutrophils 7.1 thou/uL (1.40-6.50); %Basophils 0.5 % (0.0-1.0); %Eosinophils 2.9 % (0.0-10.0); %Lymphocytes 21.1 % (21.0-51.0); %Monocytes 6.9 % (0.0-10.0); %Neutrophils 68.5 % (42.0-75.0); Hemoglobin 12.8 g/dL (12.0-16.0); Mean Corpuscular HGB CONC 32.2 g/dL (32.0-36.0); Mean Corpuscular Hemoglobin 29.1 pg (27.0-31.0); Mean Corpuscular Volume 90.5 fL (78.0-98.0); Mean Platelet Volume 8.2 fL (7.4-10.4); Platelet Count 302 thou/uL (130-400); RBC Distribution Width 14.5 % (11.5-14.5); White Blood Cell (WBC) Count 10.4 thou/uL (4.8-10.8)
[2021-06-16 17:38] LABS: ALT (SGPT) 100 U/L (8-55); AST (SGOT) 95 U/L (5-34); Albumin 3.5 g/dL (3.5-5.0); Alkaline Phosphatase 81 U/L (40-110); Anion Gap 13 mmol/L (10-20); BUN (Urea Nitrogen) 13 mg/dL (7.0-18.7); Bilirubin, Total 0.2 mg/dL (0.2-1.2); Calc. Creatinine Clearance 0 mL/min (70-130); Calcium 9.2 mg/dL (7.8-10.44); Carbon Dioxide 26 mmol/L (22-29); Chloride 105 mmol/L (98-107); Globulin 4.4 g/dL (2.4-3.5); Glucose 133 mg/dL (70-105); Potassium 3.8 mmol/L (3.5-5.1); Protein, Total 7.9 g/dL (6.0-8.3); Sodium 140 mmol/L (136-145)
[2021-06-16] MEDS ORDERED: Vancomycin 1 GM/200 ML BAG ONE (17:48)
[2021-06-16] MEDS ORDERED: Lactated Ringer's 1,000 ML IV SCH ×2 (19:45→23:00)
[2021-06-16] MEDS ORDERED: diphenhydrAMINE 50 MG/ML VIAL IVP SCH ×2 (19:45→23:00)
[2021-06-16] MEDS ORDERED: diphenhydrAMINE 50 MG/ML VIAL ONE (19:49)
[2021-06-16] MEDS ORDERED: Vancomycin HCl 1.5 GM in Sodium Chloride 0.9% 250 ML 300 ML IVPB SCH (21:00)
[2021-06-16] MEDS ORDERED: Enoxaparin Sodium 30 MG/0.3 ML SYRINGE SC SCH (21:00)
[2021-06-16] MEDS: Acetaminophen 325 MG TAB PO PRN (21:11)
[2021-06-16] MEDS: Clindamycin/D5W 900 MG in Premix Bag 1 BAG IVPB SCH (21:20)
[2021-06-16] MEDS: Enoxaparin Sodium 60 MG/0.6 ML SYRINGE SC SCH (21:20)
[2021-06-16] MEDS ORDERED: Gabapentin 100 MG CAP PO SCH (22:48)
[2021-06-17] MEDS ORDERED: Furosemide 20 MG/2 ML VIAL SLOW IVP SCH (01:15)
[2021-06-17] MEDS: Acetaminophen 325 MG TAB PO PRN ×3 (01:43→20:50)
[2021-06-17] MEDS: hydrOXYzine 10 MG TAB PO PRN ×2 (01:43→21:07)
[2021-06-17] MEDS: Clindamycin/D5W 900 MG in Premix Bag 1 BAG IVPB SCH ×3 (05:43→21:08)
[2021-06-17] MEDS ORDERED: Non-Formulary Item 1 EACH (Butalb/Acetaminophen/Caffeine [Butalb-Acetamin-Caff 50-325-40] PO PRN (06:39)
[2021-06-17 07:48] LABS: #Eosinphils 0.3 thou/uL (0.0-0.7); #Monocytes 0.7 thou/uL (0.11-0.59); #Neutrophils 4.6 thou/uL (1.40-6.50); %Basophils 0.4 % (0.0-1.0); %Eosinophils 3.7 % (0.0-10.0); %Lymphocytes 26.4 % (21.0-51.0); %Monocytes 8.6 % (0.0-10.0); Hemoglobin 12.2 g/dL (12.0-16.0); Mean Corpuscular HGB CONC 30.5 g/dL (32.0-36.0); Mean Corpuscular Hemoglobin 27.7 pg (27.0-31.0); Mean Corpuscular Volume 90.7 fL (78.0-98.0); Platelet Count 279 thou/uL (130-400); RBC Distribution Width 14.7 % (11.5-14.5); White Blood Cell (WBC) Count 7.6 thou/uL (4.8-10.8)
[2021-06-17 08:01] LABS: ALT (SGPT) 104 U/L (8-55); AST (SGOT) 99 U/L (5-34); Albumin 3.5 g/dL (3.5-5.0); Alkaline Phosphatase 98 U/L (40-110); Anion Gap 12 mmol/L (10-20); BUN (Urea Nitrogen) 9 mg/dL (7.0-18.7); Bilirubin, Total 0.3 mg/dL (0.2-1.2); Calc. Creatinine Clearance 392 mL/min (70-130); Calcium 8.5 mg/dL (7.8-10.44); Carbon Dioxide 28 mmol/L (22-29); Chloride 102 mmol/L (98-107); Globulin 3.6 g/dL (2.4-3.5); Glucose 110 mg/dL (70-105); Protein, Total 7.1 g/dL (6.0-8.3); Sodium 138 mmol/L (136-145)
[2021-06-17] MEDS: Enoxaparin Sodium 60 MG/0.6 ML SYRINGE SC SCH ×2 (08:30→20:49)
[2021-06-17] MEDS: metFORMIN 500 MG TAB PO SCH (08:31)
[2021-06-17] MEDS: FLUoxetine HCl 20 MG CAP PO SCH (08:31)
[2021-06-17] MEDS: lamoTRIgine 100 MG TAB PO SCH ×2 (08:31→17:03)
[2021-06-17] MEDS ORDERED: Gabapentin 100 MG CAP PO SCH (09:00)
[2021-06-17] MEDS ORDERED: Gabapentin 300 MG CAP PO SCH (11:29)
[2021-06-17] MEDS ORDERED: Furosemide 20 MG TAB PO SCH (11:57)
[2021-06-17] MEDS: Gabapentin 300 MG CAP PO SCH ×2 (14:41→20:51)
[2021-06-17 17:34] LABS: Vancomycin, Trough 14.5 ug/mL
[2021-06-17 18:15] LABS: SARS-CoV-2 PCR by NAA Not Detected (NotDetected)
[2021-06-18] MEDS: Clindamycin/D5W 900 MG in Premix Bag 1 BAG IVPB SCH ×2 (06:04→14:59)
[2021-06-18] MEDS: Enoxaparin Sodium 60 MG/0.6 ML SYRINGE SC SCH ×2 (09:23→21:45)
[2021-06-18] MEDS: metFORMIN 500 MG TAB PO SCH (09:24)
[2021-06-18] MEDS: Gabapentin 300 MG CAP PO SCH ×3 (09:24→21:45)
[2021-06-18] MEDS: FLUoxetine HCl 20 MG CAP PO SCH (09:24)
[2021-06-18] MEDS: lamoTRIgine 100 MG TAB PO SCH ×2 (09:25→16:49)
[2021-06-18 10:02] LABS: #Eosinphils 0.4 thou/uL (0.0-0.7); #Lymphocytes 1.9 thou/uL (1.20-3.40); #Monocytes 0.7 thou/uL (0.11-0.59); #Neutrophils 7.2 thou/uL (1.40-6.50); %Basophils 0.1 % (0.0-1.0); %Eosinophils 4.2 % (0.0-10.0); %Lymphocytes 18.7 % (21.0-51.0); %Monocytes 7.1 % (0.0-10.0); %Neutrophils 69.9 % (42.0-75.0); Hemoglobin 12.5 g/dL (12.0-16.0); Mean Corpuscular HGB CONC 31.5 g/dL (32.0-36.0); Mean Corpuscular Hemoglobin 28.5 pg (27.0-31.0); Mean Corpuscular Volume 90.6 fL (78.0-98.0); Mean Platelet Volume 7.8 fL (7.4-10.4); Platelet Count 312 thou/uL (130-400); RBC Distribution Width 14.5 % (11.5-14.5); White Blood Cell (WBC) Count 10.3 thou/uL (4.8-10.8)
[2021-06-18 10:49] LABS: ALT (SGPT) 101 U/L (8-55); AST (SGOT) 77 U/L (5-34); Albumin 3.5 g/dL (3.5-5.0); Alkaline Phosphatase 94 U/L (40-110); Anion Gap 12 mmol/L (10-20); BUN (Urea Nitrogen) 8 mg/dL (7.0-18.7); Bilirubin, Total 0.2 mg/dL (0.2-1.2); Calc. Creatinine Clearance 375 mL/min (70-130); Calcium 8.9 mg/dL (7.8-10.44); Carbon Dioxide 29 mmol/L (22-29); Chloride 99 mmol/L (98-107); Globulin 3.7 g/dL (2.4-3.5); Glucose 118 mg/dL (70-105); Potassium 4.4 mmol/L (3.5-5.1); Protein, Total 7.2 g/dL (6.0-8.3); Sodium 136 mmol/L (136-145)
[2021-06-18] MEDS: cefTRIAXone\\ROCEPHIN 2 GM in Sodium Chloride 0.9% 100 ML IVPB SCH (16:49)
[2021-06-18] MEDS: Acetaminophen 325 MG TAB PO PRN (21:44)
[2021-06-18] MEDS: hydrOXYzine 10 MG TAB PO PRN (21:45)
[2021-06-19 02:13] LABS: Vancomycin, Trough 13.4 ug/mL
[2021-06-19 02:23] LABS: #Eosinphils 0.5 thou/uL (0.0-0.7); #Lymphocytes 2.5 thou/uL (1.20-3.40); #Monocytes 0.9 thou/uL (0.11-0.59); #Neutrophils 5.7 thou/uL (1.40-6.50); %Basophils 0.1 % (0.0-1.0); %Eosinophils 5.3 % (0.0-10.0); %Lymphocytes 26.2 % (21.0-51.0); %Monocytes 9.1 % (0.0-10.0); %Neutrophils 59.3 % (42.0-75.0); Hemoglobin 12.3 g/dL (12.0-16.0); Mean Corpuscular HGB CONC 31.5 g/dL (32.0-36.0); Mean Corpuscular Hemoglobin 28.7 pg (27.0-31.0); Mean Corpuscular Volume 91.1 fL (78.0-98.0); Mean Platelet Volume 8.1 fL (7.4-10.4); Platelet Count 301 thou/uL (130-400); RBC Distribution Width 14.2 % (11.5-14.5); Red Blood Cell (RBC) Count 4.29 mill/uL (4.20-5.40); White Blood Cell (WBC) Count 9.6 thou/uL (4.8-10.8)
[2021-06-19 03:04] LABS: ALT (SGPT) 81 U/L (8-55); AST (SGOT) 60 U/L (5-34); Albumin 3.5 g/dL (3.5-5.0); Alkaline Phosphatase 88 U/L (40-110); Anion Gap 15 mmol/L (10-20); BUN (Urea Nitrogen) 9 mg/dL (7.0-18.7); Bilirubin, Total 0.2 mg/dL (0.2-1.2); Calc. Creatinine Clearance 370 mL/min (70-130); Calcium 8.7 mg/dL (7.8-10.44); Carbon Dioxide 25 mmol/L (22-29); Chloride 104 mmol/L (98-107); Globulin 3.8 g/dL (2.4-3.5); Glucose 135 mg/dL (70-105); Potassium 3.8 mmol/L (3.5-5.1); Protein, Total 7.3 g/dL (6.0-8.3); Sodium 140 mmol/L (136-145)
[2021-06-19] MEDS: Acetaminophen 325 MG TAB PO PRN ×2 (03:44→08:01)
[2021-06-19] MEDS ORDERED: Prochlorperazine Edisylate 10 MG in Sodium Chloride 0.9% 50 ML IVPB SCH (05:30)
[2021-06-19] MEDS ORDERED: diphenhydrAMINE 50 MG/ML VIAL IVP SCH (05:30)
[2021-06-19] MEDS: Gabapentin 300 MG CAP PO SCH ×3 (07:57→21:06)
[2021-06-19] MEDS: FLUoxetine HCl 20 MG CAP PO SCH (07:57)
[2021-06-19] MEDS: lamoTRIgine 100 MG TAB PO SCH ×2 (07:57→17:23)
[2021-06-19] MEDS: Enoxaparin Sodium 60 MG/0.6 ML SYRINGE SC SCH ×2 (07:58→21:06)
[2021-06-19] MEDS: metFORMIN 500 MG TAB PO SCH (09:57)
[2021-06-19] MEDS ORDERED: Furosemide 20 MG/2 ML VIAL SLOW IVP SCH (12:15)
[2021-06-19] MEDS: cefTRIAXone\\ROCEPHIN 2 GM in Sodium Chloride 0.9% 100 ML IVPB SCH (17:19)
[2021-06-19] MEDS: hydrOXYzine 10 MG TAB PO PRN (21:10)
[2021-06-20] MEDS ORDERED: Fioricet 325/50/40 mg Tablet PO SCH (05:58)
[2021-06-20] MEDS: FLUoxetine HCl 20 MG CAP PO SCH (07:53)
[2021-06-20] MEDS: metFORMIN 500 MG TAB PO SCH (07:56)
[2021-06-20] MEDS: Gabapentin 300 MG CAP PO SCH ×3 (07:56→22:00)
[2021-06-20] MEDS: Enoxaparin Sodium 60 MG/0.6 ML SYRINGE SC SCH ×2 (07:57→22:00)
[2021-06-20] MEDS: lamoTRIgine 100 MG TAB PO SCH ×2 (07:57→16:28)
[2021-06-20 09:49] LABS: Vancomycin, Trough 14.4 ug/mL
[2021-06-20] MEDS: Acetaminophen 325 MG TAB PO PRN (10:48)
[2021-06-20] MEDS ORDERED: Penicillin V Potassium 250 MG TAB PO SCH (13:45)
[2021-06-20] MEDS ORDERED: SUMAtriptan Succinate 25 MG TAB PO SCH (14:00)
[2021-06-20] MEDS: Cephalexin 250 MG CAP PO SCH ×2 (18:01→23:47)
[2021-06-20] MEDS: hydrOXYzine 10 MG TAB PO PRN (22:10)
[2021-06-20] MEDS: Penicillin V Potassium 250 MG TAB PO SCH (22:11)
[2021-06-21] MEDS ORDERED: Prochlorperazine Edisylate 10 MG in Sodium Chloride 0.9% 50 ML IVPB SCH (06:00)
[2021-06-21] MEDS ORDERED: diphenhydrAMINE 50 MG/ML VIAL IVP SCH (06:00)
[2021-06-21] MEDS: Cephalexin 250 MG CAP PO SCH ×2 (06:07→12:15)
[2021-06-21] MEDS: FLUoxetine HCl 20 MG CAP PO SCH (08:23)
[2021-06-21] MEDS: lamoTRIgine 100 MG TAB PO SCH (08:24)
[2021-06-21] MEDS: metFORMIN 500 MG TAB PO SCH (08:25)
[2021-06-21] MEDS: Gabapentin 300 MG CAP PO SCH (08:25)
[2021-06-21 08:26] LABS: #Eosinphils 0.5 thou/uL (0.0-0.7); #Lymphocytes 2.2 thou/uL (1.20-3.40); #Monocytes 0.8 thou/uL (0.11-0.59); #Neutrophils 7.2 thou/uL (1.40-6.50); %Basophils 0.4 % (0.0-1.0); %Eosinophils 4.3 % (0.0-10.0); %Lymphocytes 20.7 % (21.0-51.0); %Monocytes 7.6 % (0.0-10.0); %Neutrophils 67.1 % (42.0-75.0); Hemoglobin 12.6 g/dL (12.0-16.0); Mean Corpuscular HGB CONC 31.1 g/dL (32.0-36.0); Mean Corpuscular Hemoglobin 28.7 pg (27.0-31.0); Mean Corpuscular Volume 92.2 fL (78.0-98.0); Mean Platelet Volume 7.7 fL (7.4-10.4); Platelet Count 316 thou/uL (130-400); RBC Distribution Width 14.5 % (11.5-14.5); White Blood Cell (WBC) Count 10.7 thou/uL (4.8-10.8)
[2021-06-21] MEDS: Enoxaparin Sodium 60 MG/0.6 ML SYRINGE SC SCH (08:26)
[2021-06-21] MEDS: Penicillin V Potassium 250 MG TAB PO SCH (08:26)
[2021-06-21 08:45] LABS: ALT (SGPT) 71 U/L (8-55); AST (SGOT) 62 U/L (5-34); Albumin 3.6 g/dL (3.5-5.0); Alkaline Phosphatase 84 U/L (40-110); Anion Gap 10 mmol/L (10-20); BUN (Urea Nitrogen) 12 mg/dL (7.0-18.7); Bilirubin, Total 0.2 mg/dL (0.2-1.2); Calc. Creatinine Clearance 392 mL/min (70-130); Calcium 8.8 mg/dL (7.8-10.44); Carbon Dioxide 30 mmol/L (22-29); Chloride 102 mmol/L (98-107); Glucose 124 mg/dL (70-105); Potassium 4.2 mmol/L (3.5-5.1); Protein, Total 7.6 g/dL (6.0-8.3); Sodium 138 mmol/L (136-145)
[2021-06-21 13:02] VITALS: BP 115/71; TEMP 98.2
== END 2021-06-21 13:50 | disposition home or self-care (01) | DRG 872 ==
LOC: ERS 16:18 → T4-B 18:44
PROVIDERS: ADMIT Family Medicine; ATTEND Family Medicine
DX: A41.9 Sepsis, unspecified organism (principal); L03.311 Cellulitis of abdominal wall; F10.239 Alcohol dependence with withdrawal, unspecified; Z20.822 Contact with and (suspected) exposure to COVID-19; G43.909 Migraine, unspecified, not intractable, without status migrainosus; G47.33 Obstructive sleep apnea (adult) (pediatric); R74.01 Elevation of levels of liver transaminase levels; F17.210 Nicotine dependence, cigarettes, uncomplicated; F31.9 Bipolar disorder, unspecified; F41.9 Anxiety disorder, unspecified; R73.03 Prediabetes; R03.0 Elevated blood-pressure reading, without diagnosis of hypertension; E66.01 Morbid (severe) obesity due to excess calories; F41.0 Panic disorder [episodic paroxysmal anxiety]; Z79.84 Long term (current) use of oral hypoglycemic drugs; Z79.899 Other long term (current) drug therapy
CPT/HCPCS: 36415; 36416; 76705; 80053; 80202; 83605; 83880; 85025; 87040; 93005; 94760; 96365; 96367; 96375; J0692; J0696; J0780; J1200; J1650; J1940; J2270; J2405; J3370; J3490; J7030; J7050; J7120; U0003; U0005

== ENCOUNTER 2021-08-28 17:14 | Inpatient (IN) | payer OTHER ==
[2021-08-28] MEDS ORDERED: Morphine 4 MG/ML VIAL ONE ×2 (17:57→20:05)
[2021-08-28] MEDS ORDERED: Ketorolac Tromethamine 30 MG/ML VIAL ONE (17:58)
[2021-08-28] MEDS ORDERED: Magnesium 2 GM/50 ML BAG (IN WATER) ONE (17:58)
[2021-08-28] MEDS ORDERED: Vancomycin 1 GM/200 ML BAG ONE (17:58)
[2021-08-28 18:11] LABS: #Basophils 0.1 thou/uL (0.0-0.2); #Eosinphils 0.3 thou/uL (0.0-0.7); #Lymphocytes 3.1 thou/uL (1.20-3.40); #Monocytes 0.8 thou/uL (0.11-0.59); #Neutrophils 8.2 thou/uL (1.40-6.50); %Basophils 0.6 % (0.0-1.0); %Eosinophils 2.1 % (0.0-10.0); %Lymphocytes 25.2 % (21.0-51.0); %Monocytes 6.7 % (0.0-10.0); %Neutrophils 65.4 % (42.0-75.0); Mean Corpuscular HGB CONC 31.8 g/dL (32.0-36.0); Mean Corpuscular Hemoglobin 27.9 pg (27.0-31.0); Mean Corpuscular Volume 87.6 fL (78.0-98.0); Mean Platelet Volume 7.9 fL (7.4-10.4); Platelet Count 392 thou/uL (130-400); RBC Distribution Width 14.9 % (11.5-14.5); Red Blood Cell (RBC) Count 5.02 mill/uL (4.20-5.40); White Blood Cell (WBC) Count 12.5 thou/uL (4.8-10.8)
[2021-08-28 18:13] LABS: Bilirubin Negative (Negative); Blood, Urine Negative (Negative); Clarity Clear (Clear); Glucose, Urine (Dipstick) Normal (Negative); Ketone, Urine Negative (Negative); Leukocyte Negative Leu/uL (Negative); Nitrite Negative (Negative); Protein, Urine (Dipstick) Negative (Neg-Trace); Specific Gravity, Urine 1.019 (1.002-1.036); Urobilinogen Normal mg/dL (Less than 2); pH, Urine 6.5 (5.0-9.0)
[2021-08-28 18:19] LABS: Pregnancy Test - Urine (BHCG) Negative (Negative); Pregu Control Background? CLEAR/WHITE (CLR/WHITE); Pregu Control Bar Appear? YES (CONTROL BAR); Specific Gravity 1.019 (1.002-1.036)
[2021-08-28 18:25] LABS: Amphetamine Not Detected (NotDetected); Barbiturates Screen Not Detected (NotDetected); Benzodiazepine Screen Not Detected (NotDetected); Cocaine Metabolite Screen Not Detected (NotDetected); Methadone Not Detected (NotDetected); Methamphetamine Not Detected (NotDetected); Opiate Screen Not Detected (NotDetected); Oxycodone Screen Not Detected (NotDetected); Phencyclidine (PCP) Not Detected (NotDetected); THC/Cannabinoid Screen Not Detected (NotDetected); Tricyclic Screen Not Detected (NotDetected)
[2021-08-28 18:27] LABS: ALT (SGPT) 45 U/L (8-55); AST (SGOT) 43 U/L (5-34); Albumin 4.2 g/dL (3.5-5.0); Alkaline Phosphatase 88 U/L (40-110); Anion Gap 16 mmol/L (10-20); BUN (Urea Nitrogen) 14 mg/dL (7.0-18.7); Bilirubin, Total 0.3 mg/dL (0.2-1.2); Calc. Creatinine Clearance 0 mL/min (70-130); Calcium 9.7 mg/dL (7.8-10.44); Carbon Dioxide 24 mmol/L (22-29); Chloride 102 mmol/L (98-107); Globulin 4.4 g/dL (2.4-3.5); Glucose 94 mg/dL (70-105); Lipase 25 U/L (8-78); Potassium 4.4 mmol/L (3.5-5.1); Protein, Total 8.6 g/dL (6.0-8.3); Sodium 138 mmol/L (136-145)
[2021-08-28 18:35] LABS: Acetaminophen Less than 6.0 mcg/mL (10.0-30.0); Alcohol Less than 10 mg/dL (Less than 10); Magnesium 1.9 mg/dL (1.6-2.6); Salicylate Less than 8.0 mg/dL (15.0-30.0)
[2021-08-28 18:45] LABS: Free T4 (Free Thyroxine) 1.05 ng/dL (0.70-1.48); Thyroid Stimulating Hormone 1.1152 uIU/mL (0.35-4.94)
[2021-08-28] MEDS ORDERED: HYDROcodone/Acetaminophen 5/325 mg Tablet PO PRN (19:52)
[2021-08-28] MEDS ORDERED: Ondansetron ODT 4 MG TAB PO PRN (19:52)
[2021-08-28] MEDS ORDERED: Ondansetron PF 4 MG/2 ML Vial IVP PRN (19:52)
[2021-08-28] MEDS ORDERED: Acetaminophen 325 MG TAB PO PRN (19:52)
[2021-08-28] MEDS ORDERED: Morphine 4 MG/ML VIAL SLOW IVP PRN (20:16)
[2021-08-28] MEDS ORDERED: Piperacillin/Tazobactam 3.375 GM VIAL ONE (20:39)
[2021-08-28 21:12] LABS: Lactic Acid 1.1 mmol/L (0.5-2.2)
[2021-08-28 21:21] LABS: Troponin I Less than 0.010 ng/mL (< 0.028)
[2021-08-28 22:34] LABS: SARS-CoV-2 NAA Rapid Test Not Detected (NotDetected)
[2021-08-29 01:18] LABS: Troponin I Less than 0.010 ng/mL (< 0.028)
[2021-08-29] MEDS ORDERED: hydrOXYzine 25 MG TAB PO PRN (01:55)
[2021-08-29] MEDS ORDERED: Furosemide 20 MG TAB PO PRN (01:55)
[2021-08-29] MEDS ORDERED: cefTRIAXone\\ROCEPHIN 2 GM in Sodium Chloride 0.9% 100 ML IVPB SCH (02:00)
[2021-08-29] MEDS ORDERED: Morphine 4 MG/ML VIAL ONE (02:57)
[2021-08-29] MEDS ORDERED: cefTRIAXone\\ROCEPHIN 2 GM VIAL ONE (03:08)
[2021-08-29 04:41] LABS: #Eosinphils 0.1 thou/uL (0.0-0.7); #Lymphocytes 2.2 thou/uL (1.20-3.40); #Monocytes 0.8 thou/uL (0.11-0.59); #Neutrophils 4.8 thou/uL (1.40-6.50); %Basophils 0.1 % (0.0-1.0); %Eosinophils 1.8 % (0.0-10.0); %Lymphocytes 27.3 % (21.0-51.0); %Monocytes 9.8 % (0.0-10.0); Hemoglobin 11.9 g/dL (12.0-16.0); Mean Corpuscular HGB CONC 30.9 g/dL (32.0-36.0); Mean Corpuscular Hemoglobin 27.5 pg (27.0-31.0); Mean Corpuscular Volume 88.9 fL (78.0-98.0); Mean Platelet Volume 7.7 fL (7.4-10.4); Platelet Count 310 thou/uL (130-400); RBC Distribution Width 14.7 % (11.5-14.5); Red Blood Cell (RBC) Count 4.32 mill/uL (4.20-5.40); White Blood Cell (WBC) Count 7.9 thou/uL (4.8-10.8)
[2021-08-29 07:15] LABS: ALT (SGPT) 56 U/L (8-55); AST (SGOT) 74 U/L (5-34); Albumin 3.3 g/dL (3.5-5.0); Alkaline Phosphatase 121 U/L (40-110); Anion Gap 13 mmol/L (10-20); BUN (Urea Nitrogen) 12 mg/dL (7.0-18.7); Bilirubin, Total 0.3 mg/dL (0.2-1.2); Calc. Creatinine Clearance 0 mL/min (70-130); Calcium 8.8 mg/dL (7.8-10.44); Carbon Dioxide 23 mmol/L (22-29); Chloride 104 mmol/L (98-107); Globulin 3.9 g/dL (2.4-3.5); Glucose 86 mg/dL (70-105); Potassium 3.6 mmol/L (3.5-5.1); Protein, Total 7.2 g/dL (6.0-8.3); Sodium 136 mmol/L (136-145)
[2021-08-29] MEDS ORDERED: Enoxaparin Sodium 40 MG/0.4 ML SYRINGE SC SCH (09:00)
[2021-08-29] MEDS ORDERED: Enoxaparin Sodium 40 MG/0.4 ML SYRINGE ONE (09:13)
[2021-08-29] MEDS: metFORMIN 500 MG TAB PO SCH (09:35)
[2021-08-29] MEDS: lamoTRIgine 100 MG TAB PO SCH ×2 (09:35→17:15)
[2021-08-29] MEDS: FLUoxetine HCl 20 MG CAP PO SCH (09:36)
[2021-08-29] MEDS ORDERED: hydrOXYzine 25 MG TAB ONE (09:39)
[2021-08-29] MEDS: hydrOXYzine 25 MG TAB PO SCH ×2 (09:39→20:12)
[2021-08-29 12:44] VITALS: BMI 70.8
[2021-08-29 22:47] LABS: Vancomycin, Trough 23.9 ug/mL
[2021-08-30] MEDS ORDERED: Nystatin Powder 15 GM BOT TOP PRN (06:19)
[2021-08-30] MEDS: metFORMIN 500 MG TAB PO SCH (08:43)
[2021-08-30] MEDS: FLUoxetine HCl 20 MG CAP PO SCH (08:43)
[2021-08-30] MEDS: lamoTRIgine 100 MG TAB PO SCH ×2 (08:44→16:49)
[2021-08-30] MEDS: hydrOXYzine 25 MG TAB PO SCH ×2 (08:44→20:48)
[2021-08-30] MEDS: Fluconazole 100 MG TAB PO SCH (08:44)
[2021-08-30] MEDS: Penicillin V Potassium 250 MG TAB PO SCH ×2 (08:44→20:48)
[2021-08-30] MEDS ORDERED: Enoxaparin Sodium 60 MG/0.6 ML SYRINGE SC SCH (09:00)
[2021-08-30 09:17] LABS: Hemoglobin 14.8 g/dL (12.0-16.0); Mean Corpuscular HGB CONC 31.6 g/dL (32.0-36.0); Mean Corpuscular Hemoglobin 28.2 pg (27.0-31.0); Mean Corpuscular Volume 89.4 fL (78.0-98.0); Mean Platelet Volume 7.6 fL (7.4-10.4); Platelet Count 367 thou/uL (130-400); Red Blood Cell (RBC) Count 5.24 mill/uL (4.20-5.40)
[2021-08-30] MEDS: Enoxaparin Sodium 60 MG/0.6 ML SYRINGE SC SCH (20:49)
[2021-08-31] MEDS: lamoTRIgine 100 MG TAB PO SCH (09:25)
[2021-08-31] MEDS: metFORMIN 500 MG TAB PO SCH (09:26)
[2021-08-31] MEDS: Enoxaparin Sodium 60 MG/0.6 ML SYRINGE SC SCH (09:26)
[2021-08-31] MEDS: hydrOXYzine 25 MG TAB PO SCH (09:27)
[2021-08-31] MEDS: FLUoxetine HCl 20 MG CAP PO SCH (09:27)
[2021-08-31] MEDS: Penicillin V Potassium 250 MG TAB PO SCH (09:27)
[2021-08-31] MEDS: Fluconazole 100 MG TAB PO SCH (09:27)
[2021-08-31 11:23] VITALS: BP 142/92; TEMP 97.8
== END 2021-08-31 14:30 | disposition home or self-care (01) | DRG 872 ==
LOC: ERS 17:14 → ERHOLD 19:52 → 2SE 08-29 11:57 → 2SW 08-30 14:43
PROVIDERS: ADMIT Student in an Organized Health Care Education/Training Program; ATTEND Student in an Organized Health Care Education/Training Program
DX: A41.9 Sepsis, unspecified organism (principal); L97.129 Non-pressure chronic ulcer of left thigh with unspecified severity; N39.0 Urinary tract infection, site not specified; Z20.822 Contact with and (suspected) exposure to COVID-19; R07.89 Other chest pain; F17.210 Nicotine dependence, cigarettes, uncomplicated; I49.3 Ventricular premature depolarization; M79.3 Panniculitis, unspecified; E66.01 Morbid (severe) obesity due to excess calories; B96.89 Other specified bacterial agents as the cause of diseases classified elsewhere; I08.3 Combined rheumatic disorders of mitral, aortic and tricuspid valves; L30.4 Erythema intertrigo; G43.909 Migraine, unspecified, not intractable, without status migrainosus; G47.33 Obstructive sleep apnea (adult) (pediatric); F31.9 Bipolar disorder, unspecified; R73.03 Prediabetes; Z68.45 Body mass index [BMI] 70 or greater, adult; Z82.49 Family history of ischemic heart disease and other diseases of the circulatory system; Z83.3 Family history of diabetes mellitus; Z79.84 Long term (current) use of oral hypoglycemic drugs; Z79.899 Other long term (current) drug therapy; Z90.710 Acquired absence of both cervix and uterus; Z98.1 Arthrodesis status; Z98.51 Tubal ligation status; Z90.49 Acquired absence of other specified parts of digestive tract
CPT/HCPCS: 0240U; 36415; 71045; 80053; 80202; 80306; 80307; 81003; 81025; 83605; 83690; 83735; 83880; 84439; 84443; 84484; 85025; 85027; 87040; 87077; 87086; 87186; 93005; 93010; 93306; 96365; 96366; 96368; 96375; 96376; J0696; J1650; J1885; J2270; J2543; J3370; J3475; J3490; J7030

== ENCOUNTER 2022-01-24 16:11 | Emergency (ER) | payer OTHER ==
[2022-01-24 17:21] LABS: #Basophils 0.1 thou/uL (0.0-0.2); #Eosinphils 0.2 thou/uL (0.0-0.7); #Lymphocytes 3.1 thou/uL (1.20-3.40); #Monocytes 0.7 thou/uL (0.11-0.59); #Neutrophils 7.7 thou/uL (1.40-6.50); %Basophils 0.6 % (0.0-1.0); %Lymphocytes 26.1 % (21.0-51.0); %Neutrophils 65.3 % (42.0-75.0); Mean Corpuscular HGB CONC 31.9 g/dL (32.0-36.0); Mean Corpuscular Hemoglobin 29.4 pg (27.0-31.0); Mean Corpuscular Volume 92.2 fL (78.0-98.0); Mean Platelet Volume 7.2 fL (7.4-10.4); Platelet Count 433 thou/uL (130-400); RBC Distribution Width 14.2 % (11.5-14.5); Red Blood Cell (RBC) Count 4.75 mill/uL (4.20-5.40); White Blood Cell (WBC) Count 11.7 thou/uL (4.8-10.8)
[2022-01-24 17:54] LABS: ALT (SGPT) 42 U/L (8-55); AST (SGOT) 30 U/L (5-34); Albumin 3.9 g/dL (3.5-5.0); Alkaline Phosphatase 70 U/L (40-110); Anion Gap 16 mmol/L (10-20); BUN (Urea Nitrogen) 10 mg/dL (7.0-18.7); Bilirubin, Total 0.2 mg/dL (0.2-1.2); Calc. Creatinine Clearance 0 mL/min (70-130); Calcium 9.1 mg/dL (7.8-10.44); Carbon Dioxide 20 mmol/L (22-29); Chloride 104 mmol/L (98-107); Glucose 87 mg/dL (70-105); Potassium 4.2 mmol/L (3.5-5.1); Protein, Total 7.9 g/dL (6.0-8.3); Sodium 136 mmol/L (136-145)
[2022-01-24 18:30] LABS: BHCG - Serum Negative (NEGATIVE); Pregs Control Background? CLEAR/WHITE (CLR/WHITE); Pregs Control Bar Appear? YES (CONTROL BAR)
== END 2022-01-24 19:24 | disposition home or self-care (01) ==
LOC: ERS 16:11
DX: R55 Syncope and collapse (principal); M79.631 Pain in right forearm; I10 Essential (primary) hypertension; R73.03 Prediabetes; Z79.84 Long term (current) use of oral hypoglycemic drugs; Z79.899 Other long term (current) drug therapy; W18.2XXA Fall in (into) shower or empty bathtub, initial encounter
CPT/HCPCS: 36415; 80053; 84484; 84703; 85025; 93005

== ENCOUNTER 2022-02-01 15:12 | Emergency (ER) | payer OTHER | END 2022-02-01 16:30 | disposition home or self-care (01) | LOC: ERS 15:12 | DX: S63.501A Unspecified sprain of right wrist, initial encounter (principal); W18.2XXA Fall in (into) shower or empty bathtub, initial encounter ==

== ENCOUNTER 2022-02-12 05:19 | Emergency (ER) | payer OTHER ==
[2022-02-12] MEDS ORDERED: Sucralfate 1 GM/10 ML UDCUP ONE (05:34)
[2022-02-12 06:08] LABS: #Eosinphils 0.2 thou/uL (0.0-0.7); #Lymphocytes 2.6 thou/uL (1.20-3.40); #Monocytes 0.8 thou/uL (0.11-0.59); #Neutrophils 6.7 thou/uL (1.40-6.50); %Basophils 0.2 % (0.0-1.0); %Eosinophils 2.2 % (0.0-10.0); %Lymphocytes 25.4 % (21.0-51.0); %Monocytes 7.8 % (0.0-10.0); %Neutrophils 64.3 % (42.0-75.0); Hemoglobin 13.1 g/dL (12.0-16.0); Mean Corpuscular HGB CONC 32.5 g/dL (32.0-36.0); Mean Corpuscular Hemoglobin 30.6 pg (27.0-31.0); Mean Corpuscular Volume 93.9 fL (78.0-98.0); Mean Platelet Volume 7.7 fL (7.4-10.4); Platelet Count 317 thou/uL (130-400); RBC Distribution Width 14.3 % (11.5-14.5); Red Blood Cell (RBC) Count 4.29 mill/uL (4.20-5.40); White Blood Cell (WBC) Count 10.4 thou/uL (4.8-10.8)
[2022-02-12 06:29] LABS: ALT (SGPT) 48 U/L (8-55); AST (SGOT) 34 U/L (5-34); Albumin 3.6 g/dL (3.5-5.0); Alkaline Phosphatase 64 U/L (40-110); Anion Gap 15 mmol/L (10-20); BUN (Urea Nitrogen) 17 mg/dL (7.0-18.7); Bilirubin, Total 0.2 mg/dL (0.2-1.2); Calc. Creatinine Clearance 0 mL/min (70-130); Calcium 9.2 mg/dL (7.8-10.44); Carbon Dioxide 23 mmol/L (22-29); Chloride 105 mmol/L (98-107); Globulin 4.1 g/dL (2.4-3.5); Glucose 108 mg/dL (70-105); Potassium 4.2 mmol/L (3.5-5.1); Protein, Total 7.7 g/dL (6.0-8.3); Sodium 139 mmol/L (136-145)
[2022-02-12] MEDS ORDERED: Famotidine/PF 20 mg/2ml Vial ONE (06:37)
[2022-02-12 08:08] LABS: Troponin I Less than 0.010 ng/mL (< 0.028)
== END 2022-02-12 08:20 | disposition home or self-care (01) ==
LOC: ERS 05:19
DX: R07.9 Chest pain, unspecified (principal); I10 Essential (primary) hypertension; R73.03 Prediabetes; Z79.84 Long term (current) use of oral hypoglycemic drugs; Z79.899 Other long term (current) drug therapy
CPT/HCPCS: 36415; 71045; 80053; 83880; 84484; 85025; 93005; 96374; S0028

== ENCOUNTER 2022-03-17 23:15 | Inpatient (IN) | payer OTHER ==
[2022-03-18 00:11] LABS: #Basophils 0.1 thou/uL (0.0-0.2); #Eosinphils 0.2 thou/uL (0.0-0.7); #Lymphocytes 3.2 thou/uL (1.20-3.40); #Monocytes 0.8 thou/uL (0.11-0.59); #Neutrophils 6.3 thou/uL (1.40-6.50); %Basophils 0.5 % (0.0-1.0); %Eosinophils 2.1 % (0.0-10.0); %Lymphocytes 30.1 % (21.0-51.0); %Monocytes 7.7 % (0.0-10.0); %Neutrophils 59.6 % (42.0-75.0); Hemoglobin 13.5 g/dL (12.0-16.0); Mean Corpuscular Hemoglobin 29.8 pg (27.0-31.0); Mean Corpuscular Volume 92.9 fL (78.0-98.0); Mean Platelet Volume 7.3 fL (7.4-10.4); Platelet Count 379 thou/uL (130-400); RBC Distribution Width 13.9 % (11.5-14.5); Red Blood Cell (RBC) Count 4.54 mill/uL (4.20-5.40); White Blood Cell (WBC) Count 10.6 thou/uL (4.8-10.8)
[2022-03-18 00:23] LABS: ALT (SGPT) 35 U/L (8-55); AST (SGOT) 31 U/L (5-34); Albumin 3.9 g/dL (3.5-5.0); Alkaline Phosphatase 59 U/L (40-110); Anion Gap 13 mmol/L (10-20); BUN (Urea Nitrogen) 21 mg/dL (7.0-18.7); Bilirubin, Total 0.3 mg/dL (0.2-1.2); Calc. Creatinine Clearance 0 mL/min (70-130); Calcium 9.6 mg/dL (7.8-10.44); Carbon Dioxide 24 mmol/L (22-29); Chloride 105 mmol/L (98-107); Globulin 3.7 g/dL (2.4-3.5); Glucose 89 mg/dL (70-105); Potassium 4.4 mmol/L (3.5-5.1); Protein, Total 7.6 g/dL (6.0-8.3); Sodium 138 mmol/L (136-145)
[2022-03-18] MEDS ORDERED: Enoxaparin Sodium 100 MG/ML SYRINGE ONE (01:29)
[2022-03-18] MEDS ORDERED: Fentanyl 100 MCG/2 ML VIAL ONE (01:29)
[2022-03-18] MEDS ORDERED: Enoxaparin Sodium 80 MG/0.8 ML SYRINGE ONE (01:29)
[2022-03-18] MEDS ORDERED: Ondansetron PF 4 MG/2 ML Vial IVP PRN (01:49)
[2022-03-18] MEDS ORDERED: Acetaminophen 650 MG Suppository PR PRN (01:49)
[2022-03-18] MEDS ORDERED: Ondansetron ODT 4 MG TAB PO PRN (01:49)
[2022-03-18] MEDS ORDERED: Dextrose 50% Abboject 50 ML SYRINGE SLOW IVP PRN (01:49)
[2022-03-18] MEDS ORDERED: HumaLOG 300 UNITS/3 ML VIAL SC PRN ×2 (01:49)
[2022-03-18] MEDS ORDERED: Dextrose 5% in Water 1,000 ML IV PRN (01:49)
[2022-03-18] MEDS ORDERED: Acetaminophen 325 MG TAB PO PRN (01:49)
[2022-03-18] MEDS ORDERED: Senokot S 8.6-50 MG TAB PO PRN (01:49)
[2022-03-18] MEDS ORDERED: Nitroglycerin 0.4 MG TAB 1 EACH ONE ×3 (04:07→04:35)
[2022-03-18] MEDS: Nitroglycerin 0.4 MG TAB (25 Tab Bottle) SL PRN ×4 (04:08→18:30)
[2022-03-18 04:10] LABS: Troponin I Less than 0.010 ng/mL (< 0.028)
[2022-03-18 06:59] LABS: Troponin I Less than 0.010 ng/mL (< 0.028)
[2022-03-18] MEDS ORDERED: Acetaminophen 325 MG TAB ONE (07:50)
[2022-03-18] MEDS ORDERED: Enoxaparin Sodium 100 MG/ML SYRINGE SC SCH (09:00)
[2022-03-18] MEDS: Lisinopril 20 MG TAB PO SCH (09:24)
[2022-03-18] MEDS: lamoTRIgine 100 MG TAB PO SCH ×2 (09:26→18:40)
[2022-03-18] MEDS: Aripiprazole 10 MG TAB PO SCH (09:27)
[2022-03-18] MEDS: FLUoxetine HCl 20 MG CAP PO SCH (09:27)
[2022-03-18] MEDS ORDERED: Lidocaine 2% Viscous Solution 10 ML, Aluminum & Magnesium Hydroxide 30 ML SSW SCH (11:00)
[2022-03-18 12:38] VITALS: BMI 72.9
[2022-03-18] MEDS: Aspirin Chewable 81 MG TAB PO SCH (12:48)
[2022-03-18] MEDS: Nitroglycerin 2% Ointment 1 INCH/1 GM Packet TOP SCH ×2 (14:54→23:14)
[2022-03-18] MEDS: hydrOXYzine 25 MG TAB PO SCH (20:42)
[2022-03-18] MEDS: traZODone HCl 50 MG TAB PO PRN (20:45)
[2022-03-19] MEDS: Nitroglycerin 0.4 MG TAB (25 Tab Bottle) SL PRN ×4 (02:37→16:57)
[2022-03-19] MEDS ORDERED: Morphine 2 MG/ML VIAL SLOW IVP SCH ×3 (03:00→09:00)
[2022-03-19 03:37] LABS: Troponin I Less than 0.010 ng/mL (< 0.028)
[2022-03-19] MEDS: Nitroglycerin 2% Ointment 1 INCH/1 GM Packet TOP SCH ×3 (05:10→21:43)
[2022-03-19] MEDS ORDERED: Morphine 4 MG/ML VIAL SLOW IVP SCH (05:15)
[2022-03-19] MEDS: hydrOXYzine 25 MG TAB PO SCH ×3 (07:38→20:21)
[2022-03-19] MEDS ORDERED: ISOVUE-370 76%-LOCM 1 ML ONE (08:00)
[2022-03-19] MEDS: Aripiprazole 10 MG TAB PO SCH (08:56)
[2022-03-19] MEDS: lamoTRIgine 100 MG TAB PO SCH ×2 (08:56→16:56)
[2022-03-19] MEDS: Aspirin Chewable 81 MG TAB PO SCH (08:57)
[2022-03-19] MEDS: FLUoxetine HCl 20 MG CAP PO SCH (08:57)
[2022-03-19] MEDS ORDERED: Enoxaparin Sodium 80 MG/0.8 ML SYRINGE SC SCH (09:00)
[2022-03-19] MEDS: Lisinopril 20 MG TAB PO SCH (09:10)
[2022-03-19 11:44] LABS: BHCG - Serum Negative (NEGATIVE); Pregs Control Background? CLEAR/WHITE (CLR/WHITE); Pregs Control Bar Appear? YES (CONTROL BAR)
[2022-03-19] MEDS: Morphine 2 MG/ML VIAL SLOW IVP PRN ×2 (17:53→21:39)
[2022-03-19] MEDS: traZODone HCl 50 MG TAB PO PRN (20:21)
[2022-03-20] MEDS: Morphine 2 MG/ML VIAL SLOW IVP PRN ×3 (01:51→14:14)
[2022-03-20] MEDS: Nitroglycerin 2% Ointment 1 INCH/1 GM Packet TOP SCH ×2 (06:18→13:59)
[2022-03-20] MEDS: lamoTRIgine 100 MG TAB PO SCH (08:14)
[2022-03-20] MEDS: Aspirin Chewable 81 MG TAB PO SCH (08:15)
[2022-03-20] MEDS: Aripiprazole 10 MG TAB PO SCH (08:15)
[2022-03-20] MEDS: Lisinopril 20 MG TAB PO SCH (08:15)
[2022-03-20] MEDS: FLUoxetine HCl 20 MG CAP PO SCH (08:15)
[2022-03-20] MEDS: hydrOXYzine 25 MG TAB PO SCH ×2 (08:15→14:14)
[2022-03-20] MEDS ORDERED: Polyethylene Glycol 3350 17 GM Packet PO SCH (09:00)
[2022-03-20 12:24] VITALS: BP 129/62; TEMP 97.8
== END 2022-03-20 15:16 | disposition home or self-care (01) | DRG 311 ==
LOC: ERS 23:15 → ERHOLD 03-18 01:09 → 2NO 03-18 11:45 → OBSVTOIN 03-20 10:42
PROVIDERS: ADMIT Family Medicine; ATTEND Family Medicine
DX: I20.0 Unstable angina (principal); Z68.45 Body mass index [BMI] 70 or greater, adult; F31.81 Bipolar II disorder; R07.89 Other chest pain; Z20.822 Contact with and (suspected) exposure to COVID-19; I10 Essential (primary) hypertension; F41.9 Anxiety disorder, unspecified; G40.909 Epilepsy, unspecified, not intractable, without status epilepticus; K75.81 Nonalcoholic steatohepatitis (NASH); K22.70 Barrett's esophagus without dysplasia; G47.33 Obstructive sleep apnea (adult) (pediatric); M17.0 Bilateral primary osteoarthritis of knee; E66.01 Morbid (severe) obesity due to excess calories; R73.03 Prediabetes; Z79.899 Other long term (current) drug therapy; Z90.49 Acquired absence of other specified parts of digestive tract; Z98.1 Arthrodesis status; Z90.710 Acquired absence of both cervix and uterus
CPT/HCPCS: 36415; 36416; 71045; 71275; 74174; 80053; 83880; 84484; 84703; 85025; 85520; 93005; 93010; 96372; 96374; 96375; 96376; G0378; J1650; J2270; J3010; Q9966; U0003; U0005

== ENCOUNTER 2022-03-26 02:13 | Emergency (ER) | payer OTHER | END 2022-03-26 04:17 | disposition home or self-care (01) | LOC: ERS 02:13 | DX: S93.402A Sprain of unspecified ligament of left ankle, initial encounter (principal); I11.0 Hypertensive heart disease with heart failure; I50.9 Heart failure, unspecified; X50.1XXA Overexertion from prolonged static or awkward postures, initial encounter ==

== ENCOUNTER 2022-05-03 07:02 | Emergency (ER) | payer OTHER ==
[2022-05-03 08:08] LABS: #Basophils 0.1 thou/uL (0.0-0.2); #Eosinphils 0.2 thou/uL (0.0-0.7); #Lymphocytes 2.7 thou/uL (1.20-3.40); #Monocytes 0.9 thou/uL (0.11-0.59); #Neutrophils 6.6 thou/uL (1.40-6.50); %Basophils 0.8 % (0.0-1.0); %Eosinophils 2.1 % (0.0-10.0); %Lymphocytes 25.7 % (21.0-51.0); %Monocytes 8.3 % (0.0-10.0); Hemoglobin 13.9 g/dL (12.0-16.0); Mean Corpuscular HGB CONC 33.6 g/dL (32.0-36.0); Mean Corpuscular Hemoglobin 31.1 pg (27.0-31.0); Mean Corpuscular Volume 92.6 fL (78.0-98.0); Mean Platelet Volume 7.8 fL (7.4-10.4); Platelet Count 340 thou/uL (130-400); RBC Distribution Width 13.3 % (11.5-14.5); Red Blood Cell (RBC) Count 4.46 mill/uL (4.20-5.40); White Blood Cell (WBC) Count 10.4 thou/uL (4.8-10.8)
[2022-05-03] MEDS ORDERED: Cefepime 2 GM VIAL ONE (08:21)
[2022-05-03 08:27] LABS: ALT (SGPT) 25 U/L (8-55); AST (SGOT) 19 U/L (5-34); Albumin 3.6 g/dL (3.5-5.0); Alkaline Phosphatase 69 U/L (40-110); Anion Gap 15 mmol/L (10-20); BUN (Urea Nitrogen) 17 mg/dL (7.0-18.7); Bilirubin, Total 0.2 mg/dL (0.2-1.2); Calc. Creatinine Clearance 0 mL/min (70-130); Calcium 9.7 mg/dL (7.8-10.44); Carbon Dioxide 22 mmol/L (22-29); Chloride 105 mmol/L (98-107); Estimated GFR 116; Globulin 4.2 g/dL (2.4-3.5); Glucose 140 mg/dL (70-105); Potassium 4.4 mmol/L (3.5-5.1); Protein, Total 7.8 g/dL (6.0-8.3); Sodium 138 mmol/L (136-145)
[2022-05-03] MEDS ORDERED: VANCOMYCIN 2 GRAM/500 ML BAG 2 GM in Premix Bag 1 BAG IVPB SCH (09:00)
[2022-05-03 09:04] LABS: Bilirubin Negative (Negative); Blood, Urine Negative (Negative); Clarity Clear (Clear); Glucose, Urine (Dipstick) Normal (Negative); Ketone, Urine Negative (Negative); Leukocyte Negative Leu/uL (Negative); Nitrite Negative (Negative); Protein, Urine (Dipstick) Negative (Neg-Trace); Specific Gravity, Urine 1.022 (1.002-1.036); Urobilinogen Normal mg/dL (Less than 2)
[2022-05-03] MEDS ORDERED: Ketorolac Tromethamine 30 MG/ML VIAL ONE (09:35)
[2022-05-03 10:38] LABS: Pregnancy Test - Urine (BHCG) Negative (Negative); Pregu Control Background? CLEAR/WHITE (CLR/WHITE); Pregu Control Bar Appear? YES (CONTROL BAR); Specific Gravity 1.022 (1.002-1.036)
== END 2022-05-03 11:44 | disposition home or self-care (01) ==
LOC: ERS 07:02
DX: L03.311 Cellulitis of abdominal wall (principal); I11.0 Hypertensive heart disease with heart failure; I50.9 Heart failure, unspecified; Z79.84 Long term (current) use of oral hypoglycemic drugs; Z79.899 Other long term (current) drug therapy
CPT/HCPCS: 71045; 80053; 81003; 81025; 83605; 85025; 87040; 87086; 93005; 96365; 96366; 96367; 96372; J0692; J1885; J3370

== ENCOUNTER 2022-05-14 09:10 | Emergency (ER) | payer OTHER ==
[2022-05-14 09:57] LABS: #Basophils 0.1 thou/uL (0.0-0.2); #Eosinphils 0.2 thou/uL (0.0-0.7); #Lymphocytes 2.4 thou/uL (1.20-3.40); #Monocytes 0.9 thou/uL (0.11-0.59); %Basophils 0.5 % (0.0-1.0); %Eosinophils 2.2 % (0.0-10.0); %Lymphocytes 22.7 % (21.0-51.0); %Monocytes 8.2 % (0.0-10.0); %Neutrophils 66.4 % (42.0-75.0); Hemoglobin 13.1 g/dL (12.0-16.0); Mean Corpuscular HGB CONC 31.8 g/dL (32.0-36.0); Mean Corpuscular Volume 94.3 fL (78.0-98.0); Mean Platelet Volume 7.9 fL (7.4-10.4); Platelet Count 319 thou/uL (130-400); RBC Distribution Width 13.4 % (11.5-14.5); Red Blood Cell (RBC) Count 4.35 mill/uL (4.20-5.40); White Blood Cell (WBC) Count 10.5 thou/uL (4.8-10.8)
[2022-05-14 10:03] LABS: ALT (SGPT) 30 U/L (8-55); AST (SGOT) 23 U/L (5-34); Albumin 3.6 g/dL (3.5-5.0); Alkaline Phosphatase 69 U/L (40-110); Anion Gap 12 mmol/L (10-20); BUN (Urea Nitrogen) 17 mg/dL (7.0-18.7); Bilirubin, Total 0.2 mg/dL (0.2-1.2); Calc. Creatinine Clearance 0 mL/min (70-130); Calcium 8.7 mg/dL (7.8-10.44); Carbon Dioxide 23 mmol/L (22-29); Chloride 106 mmol/L (98-107); Estimated GFR 114; Globulin 3.5 g/dL (2.4-3.5); Glucose 122 mg/dL (70-105); Lipase 27 U/L (8-78); Potassium 4.3 mmol/L (3.5-5.1); Protein, Total 7.1 g/dL (6.0-8.3); Sodium 137 mmol/L (136-145)
[2022-05-14] MEDS ORDERED: Nitroglycerin 0.4 MG TAB 1 EACH ONE (10:37)
[2022-05-14] MEDS ORDERED: Aspirin Chewable 81 MG TAB ONE (10:37)
[2022-05-14] MEDS ORDERED: Furosemide 20 MG/2 ML VIAL ONE (12:08)
[2022-05-14 12:48] LABS: Troponin I Less than 0.010 ng/mL (< 0.028)
== END 2022-05-14 14:32 | disposition home or self-care (01) ==
LOC: ERS 09:10
DX: I20.0 Unstable angina (principal); I11.0 Hypertensive heart disease with heart failure; I50.9 Heart failure, unspecified; Z79.84 Long term (current) use of oral hypoglycemic drugs; Z79.899 Other long term (current) drug therapy
CPT/HCPCS: 36415; 71045; 80053; 83690; 83880; 84484; 85025; 85379; 93005; 94760; 96374; J1940

== ENCOUNTER 2022-05-20 02:14 | Emergency (ER) | payer OTHER ==
[2022-05-20] MEDS ORDERED: Diazepam 5 MG TAB ONE (03:07)
[2022-05-20] MEDS ORDERED: methylPREDNISolone Sod Succ/PF 125 MG/2 ML VIAL ONE (03:08)
[2022-05-20] MEDS ORDERED: Ketorolac Tromethamine 30 MG/ML VIAL ONE (03:08)
[2022-05-20 03:52] LABS: #Basophils 0.1 thou/uL (0.0-0.2); #Eosinphils 0.2 thou/uL (0.0-0.7); #Lymphocytes 2.3 thou/uL (1.20-3.40); #Monocytes 0.7 thou/uL (0.11-0.59); #Neutrophils 5.5 thou/uL (1.40-6.50); %Basophils 0.6 % (0.0-1.0); %Eosinophils 2.6 % (0.0-10.0); %Lymphocytes 26.5 % (21.0-51.0); %Monocytes 7.5 % (0.0-10.0); %Neutrophils 62.9 % (42.0-75.0); Hemoglobin 13.7 g/dL (12.0-16.0); Mean Corpuscular HGB CONC 33.1 g/dL (32.0-36.0); Mean Corpuscular Hemoglobin 30.7 pg (27.0-31.0); Mean Corpuscular Volume 92.9 fL (78.0-98.0); Mean Platelet Volume 7.7 fL (7.4-10.4); Platelet Count 347 thou/uL (130-400); RBC Distribution Width 13.4 % (11.5-14.5); Red Blood Cell (RBC) Count 4.45 mill/uL (4.20-5.40); White Blood Cell (WBC) Count 8.8 thou/uL (4.8-10.8)
[2022-05-20 04:05] LABS: ALT (SGPT) 34 U/L (8-55); AST (SGOT) 24 U/L (5-34); Albumin 3.7 g/dL (3.5-5.0); Alkaline Phosphatase 71 U/L (40-110); Anion Gap 14 mmol/L (10-20); BUN (Urea Nitrogen) 15 mg/dL (7.0-18.7); Bilirubin, Total 0.2 mg/dL (0.2-1.2); Calc. Creatinine Clearance 0 mL/min (70-130); Calcium 8.8 mg/dL (7.8-10.44); Carbon Dioxide 23 mmol/L (22-29); Chloride 105 mmol/L (98-107); Estimated GFR 68; Globulin 3.9 g/dL (2.4-3.5); Glucose 107 mg/dL (70-105); Potassium 3.9 mmol/L (3.5-5.1); Protein, Total 7.6 g/dL (6.0-8.3); Sodium 138 mmol/L (136-145)
[2022-05-20 04:13] LABS: BHCG - Serum Negative (NEGATIVE); Pregs Control Background? CLEAR/WHITE (CLR/WHITE); Pregs Control Bar Appear? YES (CONTROL BAR)
[2022-05-20] MEDS ORDERED: HYDROmorphone 0.5 MG/0.5 ML SYRINGE ONE (04:35)
[2022-05-20 05:59] LABS: Bilirubin Negative (Negative); Blood, Urine Negative (Negative); Clarity Turbid (Clear); Glucose, Urine (Dipstick) Normal (Negative); Ketone, Urine Negative (Negative); Leukocyte Negative Leu/uL (Negative); Nitrite Negative (Negative); Protein, Urine (Dipstick) Negative (Neg-Trace); Specific Gravity, Urine 1.015 (1.002-1.036); Urobilinogen Normal mg/dL (Less than 2)
== END 2022-05-20 06:27 | disposition home or self-care (01) ==
LOC: ERS 02:14
DX: M54.50 Low back pain, unspecified (principal); I11.0 Hypertensive heart disease with heart failure; I50.9 Heart failure, unspecified; Z79.899 Other long term (current) drug therapy; X50.0XXA Overexertion from strenuous movement or load, initial encounter
CPT/HCPCS: 72131; 80053; 81003; 84703; 85025; 96374; 96375; J1170; J1885; J2930

== ENCOUNTER 2022-05-26 14:34 | Emergency (ER) | payer OTHER ==
[2022-05-26 15:13] LABS: #Basophils 0.1 thou/uL (0.0-0.2); #Eosinphils 0.2 thou/uL (0.0-0.7); #Lymphocytes 2.6 thou/uL (1.20-3.40); #Monocytes 0.7 thou/uL (0.11-0.59); #Neutrophils 6.4 thou/uL (1.40-6.50); %Basophils 0.7 % (0.0-1.0); %Eosinophils 2.3 % (0.0-10.0); %Lymphocytes 26.3 % (21.0-51.0); %Monocytes 7.2 % (0.0-10.0); %Neutrophils 63.5 % (42.0-75.0); Hemoglobin 14.1 g/dL (12.0-16.0); Mean Corpuscular HGB CONC 34.7 g/dL (32.0-36.0); Mean Corpuscular Hemoglobin 32.3 pg (27.0-31.0); Mean Corpuscular Volume 93.1 fL (78.0-98.0); Mean Platelet Volume 7.5 fL (7.4-10.4); Platelet Count 333 thou/uL (130-400); RBC Distribution Width 13.4 % (11.5-14.5); Red Blood Cell (RBC) Count 4.36 mill/uL (4.20-5.40)
[2022-05-26] MEDS ORDERED: Morphine 4 MG/ML VIAL ONE ×3 (15:21→19:21)
[2022-05-26] MEDS ORDERED: Piperacillin/Tazobactam 4.5 GM VIAL ONE (15:21)
[2022-05-26 15:34] LABS: PTT 26.8 sec (22.9-36.1)
[2022-05-26 15:37] LABS: ALT (SGPT) 21 U/L (8-55); AST (SGOT) 18 U/L (5-34); Albumin 3.6 g/dL (3.5-5.0); Alkaline Phosphatase 56 U/L (40-110); Anion Gap 16 mmol/L (10-20); BUN (Urea Nitrogen) 13 mg/dL (7.0-18.7); Bilirubin, Total 0.2 mg/dL (0.2-1.2); Calc. Creatinine Clearance 0 mL/min (70-130); Carbon Dioxide 18 mmol/L (22-29); Chloride 108 mmol/L (98-107); Estimated GFR 65; Globulin 3.9 g/dL (2.4-3.5); Glucose 117 mg/dL (70-105); Lipase 28 U/L (8-78); Potassium 4.2 mmol/L (3.5-5.1); Protein, Total 7.5 g/dL (6.0-8.3); Sodium 138 mmol/L (136-145)
[2022-05-26] MEDS ORDERED: Iopamidol-370 76% 500 ML 1 ML ONE (15:44)
[2022-05-26 16:07] LABS: Bacteria/HPF None Seen HPF (None Seen); Bilirubin Negative (Negative); Blood, Urine 2+ (Negative); Clarity Clear (Clear); Glucose, Urine (Dipstick) Normal (Negative); Ketone, Urine Negative (Negative); Leukocyte Negative Leu/uL (Negative); Nitrite Negative (Negative); Protein, Urine (Dipstick) Negative (Neg-Trace); Squamous Epithelial 0-3 HPF (0-3); Urobilinogen Normal mg/dL (Less than 2); WBC/HPF 0-3 HPF (0-3)
[2022-05-26 16:09] LABS: Specific Gravity, Urine 1.048 (1.002-1.036)
[2022-05-26 17:11] LABS: Actual Bicarbonate (HCO3v) 22 mEq/L (22-28); Analyzer IN Cardio ER; Base Excess -1.5 mEq/L (-2.0 to +3.0); Calcium, Ionized (venous) 1.09 mmol/L (1.16-1.32); Chloride (VBG) 109 mmol/L (98-106); Hemoglobin (Hb) 14.2 g/dL (11.7-15.5); Potassium (VBG) 3.92 mmol/L (3.70-5.30); Sodium 139.6 mmol/L (133-146); pH (venous) 7.43 (7.32-7.43)
[2022-05-26 18:10] LABS: Lactic Acid 1.5 mmol/L (0.5-2.2)
[2022-05-26] MEDS ORDERED: HYDROmorphone 0.5 MG/0.5 ML SYRINGE ONE ×2 (21:06→23:17)
[2022-05-26] MEDS ORDERED: Ondansetron PF 4 MG/2 ML Vial ONE (22:45)
== END 2022-05-26 23:28 | disposition short-term general hospital (02) ==
LOC: ERS 14:34
DX: N83.201 Unspecified ovarian cyst, right side (principal); R00.0 Tachycardia, unspecified; I11.0 Hypertensive heart disease with heart failure; I50.9 Heart failure, unspecified; Z79.899 Other long term (current) drug therapy; Z79.84 Long term (current) use of oral hypoglycemic drugs
CPT/HCPCS: 36415; 71045; 74177; 76856; 80053; 81003; 81015; 82805; 83605; 83690; 84484; 85025; 85610; 85730; 86850; 86900; 86901; 87040; 87086; 93005; 96365; 96366; 96375; 96376; J1170; J2270; J2405; J2543; J3370; J7030; Q9967

== ENCOUNTER 2022-06-02 | Observation (INO) | payer OTHER ==
[2022-06-02] MEDS ORDERED: Acetaminophen 500 MG TAB ONE (00:26)
[2022-06-02] MEDS ORDERED: Nitroglycerin 2% Ointment 1 INCH/1 GM Packet ONE (00:26)
[2022-06-02 00:59] LABS: #Basophils 0.1 thou/uL (0.0-0.2); #Eosinphils 0.2 thou/uL (0.0-0.7); #Monocytes 0.8 thou/uL (0.11-0.59); #Neutrophils 7.8 thou/uL (1.40-6.50); %Basophils 0.8 % (0.0-1.0); %Eosinophils 2.1 % (0.0-10.0); %Lymphocytes 25.1 % (21.0-51.0); %Monocytes 6.9 % (0.0-10.0); %Neutrophils 65.2 % (42.0-75.0); Hemoglobin 13.3 g/dL (12.0-16.0); Mean Corpuscular Hemoglobin 31.5 pg (27.0-31.0); Mean Corpuscular Volume 92.8 fL (78.0-98.0); Mean Platelet Volume 8.1 fL (7.4-10.4); Platelet Count 305 thou/uL (130-400); RBC Distribution Width 13.8 % (11.5-14.5); Red Blood Cell (RBC) Count 4.21 mill/uL (4.20-5.40); White Blood Cell (WBC) Count 11.9 thou/uL (4.8-10.8)
[2022-06-02 01:08] LABS: BHCG - Serum Negative (NEGATIVE); Pregs Control Background? CLEAR/WHITE (CLR/WHITE); Pregs Control Bar Appear? YES (CONTROL BAR)
[2022-06-02] MEDS ORDERED: Morphine 4 MG/ML VIAL ONE (01:11)
[2022-06-02 01:47] LABS: ALT (SGPT) 31 U/L (8-55); AST (SGOT) 22 U/L (5-34); Albumin 3.8 g/dL (3.5-5.0); Alkaline Phosphatase 64 U/L (40-110); Anion Gap 15 mmol/L (10-20); BUN (Urea Nitrogen) 19 mg/dL (7.0-18.7); Bilirubin, Total 0.2 mg/dL (0.2-1.2); Calc. Creatinine Clearance 0 mL/min (70-130); Calcium 8.7 mg/dL (7.8-10.44); Carbon Dioxide 17 mmol/L (22-29); Chloride 110 mmol/L (98-107); Estimated GFR 100; Globulin 3.2 g/dL (2.4-3.5); Glucose 130 mg/dL (70-105); Potassium 3.9 mmol/L (3.5-5.1); Sodium 138 mmol/L (136-145)
[2022-06-02] MEDS ORDERED: Acetaminophen 325 MG TAB PO PRN (03:01)
[2022-06-02] MEDS ORDERED: Enoxaparin Sodium 40 MG/0.4 ML SYRINGE SC SCH (03:15)
[2022-06-02] MEDS ORDERED: busPIRone HCl 10 MG TAB PO PRN (03:20)
[2022-06-02 04:38] VITALS: BMI 84.9
[2022-06-02] MEDS ORDERED: Sucralfate 1 GM TAB PO SCH ×2 (05:30→07:30)
[2022-06-02 06:28] LABS: Troponin I Less than 0.010 ng/mL (< 0.028)
[2022-06-02 08:31] LABS: Troponin I Less than 0.010 ng/mL (< 0.028)
[2022-06-02] MEDS: FLUoxetine HCl 20 MG CAP PO SCH (09:06)
[2022-06-02] MEDS: lamoTRIgine 100 MG TAB PO SCH ×2 (09:06→16:25)
[2022-06-02] MEDS: Lisinopril 20 MG TAB PO SCH (09:08)
[2022-06-02] MEDS: metFORMIN 500 MG TAB PO SCH (09:08)
[2022-06-02] MEDS: Topiramate 25 MG TAB PO SCH ×2 (09:40→20:37)
[2022-06-02] MEDS ORDERED: Nystatin Powder 15 GM BOT TOP PRN (11:03)
[2022-06-02] MEDS: Sucralfate 1 GM TAB PO SCH ×3 (12:07→20:37)
[2022-06-02] MEDS: Clindamycin 150 MG CAP PO SCH ×2 (14:00→22:01)
[2022-06-02 16:28] LABS: Cardiac Risk 5.1 (Less than 4.5)
[2022-06-02] MEDS ORDERED: Aspirin 325 mg Enteric Coated Tablet PO SCH (18:45)
[2022-06-02] MEDS ORDERED: Atorvastatin Calcium 40 MG TAB PO SCH (21:00)
[2022-06-02] MEDS ORDERED: Aripiprazole 15 MG TAB PO SCH (21:00)
[2022-06-02] MEDS ORDERED: Mirtazapine 15 MG TAB PO SCH (21:00)
[2022-06-03] MEDS: Clindamycin 150 MG CAP PO SCH ×2 (06:13→14:39)
[2022-06-03 06:14] LABS: #Eosinphils 0.3 thou/uL (0.0-0.7); #Lymphocytes 2.6 thou/uL (1.20-3.40); #Monocytes 0.9 thou/uL (0.11-0.59); #Neutrophils 5.8 thou/uL (1.40-6.50); %Basophils 0.2 % (0.0-1.0); %Eosinophils 2.6 % (0.0-10.0); %Lymphocytes 27.3 % (21.0-51.0); %Neutrophils 60.9 % (42.0-75.0); Hemoglobin 13.3 g/dL (12.0-16.0); Mean Corpuscular HGB CONC 33.1 g/dL (32.0-36.0); Mean Corpuscular Hemoglobin 31.3 pg (27.0-31.0); Mean Corpuscular Volume 94.5 fL (78.0-98.0); Mean Platelet Volume 8.2 fL (7.4-10.4); Platelet Count 290 thou/uL (130-400); RBC Distribution Width 13.8 % (11.5-14.5); Red Blood Cell (RBC) Count 4.26 mill/uL (4.20-5.40); White Blood Cell (WBC) Count 9.6 thou/uL (4.8-10.8)
[2022-06-03 06:46] LABS: Anion Gap 17 mmol/L (10-20); BUN (Urea Nitrogen) 11 mg/dL (7.0-18.7); Calc. Creatinine Clearance 330 mL/min (70-130); Calcium 8.9 mg/dL (7.8-10.44); Carbon Dioxide 18 mmol/L (22-29); Chloride 109 mmol/L (98-107); Estimated GFR 110; Glucose 118 mg/dL (70-105); Potassium 4.7 mmol/L (3.5-5.1); Sodium 139 mmol/L (136-145)
[2022-06-03] MEDS: metFORMIN 500 MG TAB PO SCH (08:55)
[2022-06-03] MEDS: Lisinopril 20 MG TAB PO SCH (08:55)
[2022-06-03] MEDS: FLUoxetine HCl 20 MG CAP PO SCH (08:55)
[2022-06-03] MEDS: lamoTRIgine 100 MG TAB PO SCH ×2 (08:55→16:56)
[2022-06-03] MEDS: Topiramate 25 MG TAB PO SCH (08:56)
[2022-06-03] MEDS ORDERED: Saccharomyces boulardii 250 MG CAP PO SCH (09:00)
[2022-06-03] MEDS ORDERED: Aspirin 325 mg Enteric Coated Tablet PO SCH (09:00)
[2022-06-03] MEDS: Sucralfate 1 GM TAB PO SCH ×3 (09:01→17:15)
[2022-06-03 15:48] VITALS: BP 151/72; TEMP 97.8
== END 2022-06-03 19:23 | disposition home or self-care (01) ==
LOC: ERS → NEURO 02:29
PROVIDERS: ADMIT Student in an Organized Health Care Education/Training Program; ATTEND Student in an Organized Health Care Education/Training Program
DX: R07.89 Other chest pain (principal); K29.60 Other gastritis without bleeding; R73.03 Prediabetes; I10 Essential (primary) hypertension; F41.9 Anxiety disorder, unspecified; F31.81 Bipolar II disorder; G43.909 Migraine, unspecified, not intractable, without status migrainosus; L03.311 Cellulitis of abdominal wall; L03.314 Cellulitis of groin; I07.1 Rheumatic tricuspid insufficiency; I20.0 Unstable angina; E66.01 Morbid (severe) obesity due to excess calories; Z68.45 Body mass index [BMI] 70 or greater, adult; Z79.84 Long term (current) use of oral hypoglycemic drugs; Z79.899 Other long term (current) drug therapy; Z88.8 Allergy status to other drugs, medicaments and biological substances; Z20.822 Contact with and (suspected) exposure to COVID-19
CPT/HCPCS: 36415; 36416; 71045; 80048; 80053; 80061; 83880; 84484; 84703; 85025; 93005; 93306; 96372; 96374; G0378; J1650; J2270; U0003; U0005

== ENCOUNTER 2022-06-12 00:33 | Emergency (ER) | payer OTHER ==
[2022-06-12] MEDS ORDERED: Acetaminophen 500 MG TAB ONE (01:22)
[2022-06-12] MEDS ORDERED: Ondansetron ODT 4 MG TAB ONE (01:22)
[2022-06-12 01:36] LABS: #Basophils 0.1 thou/uL (0.0-0.2); #Eosinphils 0.2 thou/uL (0.0-0.7); #Monocytes 0.8 thou/uL (0.11-0.59); #Neutrophils 4.6 thou/uL (1.40-6.50); %Basophils 0.8 % (0.0-1.0); %Eosinophils 2.5 % (0.0-10.0); %Lymphocytes 34.5 % (21.0-51.0); %Monocytes 9.2 % (0.0-10.0); %Neutrophils 52.9 % (42.0-75.0); Hemoglobin 12.6 g/dL (12.0-16.0); Mean Corpuscular HGB CONC 32.4 g/dL (32.0-36.0); Mean Corpuscular Hemoglobin 30.5 pg (27.0-31.0); Mean Corpuscular Volume 94.3 fL (78.0-98.0); Mean Platelet Volume 7.8 fL (7.4-10.4); Platelet Count 302 thou/uL (130-400); RBC Distribution Width 13.3 % (11.5-14.5); Red Blood Cell (RBC) Count 4.12 mill/uL (4.20-5.40); White Blood Cell (WBC) Count 8.6 thou/uL (4.8-10.8)
[2022-06-12 01:59] LABS: ALT (SGPT) 20 U/L (8-55); AST (SGOT) 19 U/L (5-34); Albumin 3.6 g/dL (3.5-5.0); Alkaline Phosphatase 48 U/L (40-110); Anion Gap 12 mmol/L (10-20); BUN (Urea Nitrogen) 22 mg/dL (7.0-18.7); Bilirubin, Total 0.2 mg/dL (0.2-1.2); Calc. Creatinine Clearance 0 mL/min (70-130); Carbon Dioxide 23 mmol/L (22-29); Chloride 107 mmol/L (98-107); Estimated GFR 103; Globulin 3.7 g/dL (2.4-3.5); Glucose 90 mg/dL (70-105); Potassium 4.2 mmol/L (3.5-5.1); Protein, Total 7.3 g/dL (6.0-8.3); Sodium 138 mmol/L (136-145)
[2022-06-12 04:17] LABS: Amphetamine Not Detected (NotDetected); Barbiturates Screen Not Detected (NotDetected); Benzodiazepine Screen Detected (NotDetected); Cocaine Metabolite Screen Not Detected (NotDetected); Methadone Not Detected (NotDetected); Methamphetamine Not Detected (NotDetected); Opiate Screen Not Detected (NotDetected); Oxycodone Screen Not Detected (NotDetected); Phencyclidine (PCP) Not Detected (NotDetected); THC/Cannabinoid Screen Not Detected (NotDetected); Tricyclic Screen Detected (NotDetected)
[2022-06-12 04:44] LABS: Acetaminophen Less than 10.0 mcg/mL (10.0-30.0); Alcohol Less than 10 mg/dL (Less than 10); Salicylate Less than 8.0 mg/dL (15.0-30.0)
== END 2022-06-12 05:54 | disposition home or self-care (01) ==
LOC: ERS 00:33
DX: F32.9 Major depressive disorder, single episode, unspecified (principal); L03.116 Cellulitis of left lower limb; I11.0 Hypertensive heart disease with heart failure; I50.9 Heart failure, unspecified; E66.9 Obesity, unspecified; Z79.84 Long term (current) use of oral hypoglycemic drugs; Z79.899 Other long term (current) drug therapy
CPT/HCPCS: 36415; 80053; 80306; 80307; 85025; 93005; Q0162

== ENCOUNTER 2022-07-24 19:59 | Emergency (ER) | payer OTHER ==
[2022-07-24] MEDS ORDERED: Lidocaine 1% PF 5 ML VIAL ONE (20:35)
[2022-07-24 21:11] LABS: #Basophils 0.1 thou/uL (0.0-0.2); #Eosinphils 0.2 thou/uL (0.0-0.7); #Lymphocytes 2.4 thou/uL (1.20-3.40); #Monocytes 0.7 thou/uL (0.11-0.59); #Neutrophils 4.9 thou/uL (1.40-6.50); %Basophils 0.8 % (0.0-1.0); %Eosinophils 1.9 % (0.0-10.0); %Lymphocytes 29.4 % (21.0-51.0); %Monocytes 8.8 % (0.0-10.0); Hemoglobin 13.1 g/dL (12.0-16.0); Mean Corpuscular HGB CONC 32.3 g/dL (32.0-36.0); Mean Corpuscular Hemoglobin 30.3 pg (27.0-31.0); Mean Corpuscular Volume 93.8 fl (78.0-98.0); Mean Platelet Volume 8.2 fL (7.4-10.4); Platelet Count 332 thou/uL (130-400); RBC Distribution Width 13.3 % (11.5-14.5); Red Blood Cell (RBC) Count 4.33 mill/uL (4.20-5.40); White Blood Cell (WBC) Count 8.2 thou/uL (4.8-10.8)
[2022-07-24] MEDS ORDERED: Clindamycin/D5W 900 mg/50 ml Premix Bag ONE (21:20)
[2022-07-24 21:43] LABS: ALT (SGPT) 29 U/L (8-55); AST (SGOT) 18 U/L (5-34); Albumin 3.8 g/dL (3.5-5.0); Alkaline Phosphatase 57 U/L (40-110); Anion Gap 12 mmol/L (10-20); BUN (Urea Nitrogen) 12 mg/dL (7.0-18.7); Bilirubin, Total 0.2 mg/dL (0.2-1.2); Calc. Creatinine Clearance 0 mL/min (70-130); Carbon Dioxide 23 mmol/L (22-29); Chloride 108 mmol/L (98-107); Estimated GFR 98; Globulin 3.5 g/dL (2.4-3.5); Glucose 112 mg/dL (70-105); Potassium 4.1 mmol/L (3.5-5.1); Protein, Total 7.3 g/dL (6.0-8.3); Sodium 139 mmol/L (136-145)
[2022-07-24 21:59] LABS: Bilirubin Negative (Negative); Blood, Urine Negative (Negative); Clarity Clear (Clear); Glucose, Urine (Dipstick) Normal (Negative); Ketone, Urine Negative (Negative); Leukocyte Negative Leu/uL (Negative); Nitrite Negative (Negative); Protein, Urine (Dipstick) Negative (Neg-Trace); Specific Gravity, Urine 1.027 (1.002-1.036); Urobilinogen Normal mg/dL (Less than 2); pH, Urine 6.5 (5.0-9.0)
== END 2022-07-24 23:50 | disposition home or self-care (01) ==
LOC: ERS 19:59
DX: L02.211 Cutaneous abscess of abdominal wall (principal); L02.214 Cutaneous abscess of groin; R07.89 Other chest pain; I11.0 Hypertensive heart disease with heart failure; I50.9 Heart failure, unspecified
CPT/HCPCS: 10061; 36415; 71045; 80053; 81003; 83605; 83880; 84484; 85025; 85379; 87040; 87086; 93005; 96365; J3490

== ENCOUNTER 2022-08-09 04:50 | Emergency (ER) | payer OTHER ==
[2022-08-09] MEDS ORDERED: Ketorolac Tromethamine 30 MG/ML VIAL ONE (05:28)
== END 2022-08-09 06:20 | disposition home or self-care (01) ==
LOC: ERS 04:50
DX: S53.401A Unspecified sprain of right elbow, initial encounter (principal); I11.0 Hypertensive heart disease with heart failure; I50.9 Heart failure, unspecified; E66.9 Obesity, unspecified; Z79.899 Other long term (current) drug therapy; W18.40XA Slipping, tripping and stumbling without falling, unspecified, initial encounter
CPT/HCPCS: 96372; J1885

== ENCOUNTER 2022-08-11 03:00 | Observation (INO) | payer OTHER ==
[2022-08-11] MEDS ORDERED: Orphenadrine Citrate 60 MG/2 ML VIAL IM SCH (04:30)
[2022-08-11] MEDS ORDERED: Diazepam 5 MG TAB PO SCH (04:30)
[2022-08-11] MEDS ORDERED: Orphenadrine Citrate 60 MG/2 ML VIAL ONE (04:39)
[2022-08-11] MEDS ORDERED: Diazepam 5 MG TAB ONE (04:39)
[2022-08-11 04:59] LABS: Bacteria/HPF None Seen HPF (None Seen); Bilirubin Negative (Negative); Blood, Urine Trace (Negative); Clarity Clear (Clear); Glucose, Urine (Dipstick) Normal (Negative); Ketone, Urine Negative (Negative); Leukocyte Negative Leu/uL (Negative); Nitrite Negative (Negative); Protein, Urine (Dipstick) Negative (Neg-Trace); RBC/HPF 0-3 HPF (0-3); Specific Gravity, Urine 1.019 (1.002-1.036); Squamous Epithelial 0-3 HPF (0-3); Urobilinogen Normal mg/dL (Less than 2); WBC/HPF 0-3 HPF (0-3); pH, Urine 7.5 (5.0-9.0)
[2022-08-11 05:17] LABS: #Eosinphils 0.2 thou/uL (0.0-0.7); #Monocytes 0.8 thou/uL (0.11-0.59); #Neutrophils 7.2 thou/uL (1.40-6.50); %Basophils 0.4 % (0.0-1.0); %Eosinophils 1.8 % (0.0-10.0); %Lymphocytes 26.4 % (21.0-51.0); %Monocytes 7.3 % (0.0-10.0); %Neutrophils 64.2 % (42.0-75.0); BHCG - Serum Negative (NEGATIVE); Hemoglobin 12.6 g/dL (12.0-16.0); Mean Corpuscular HGB CONC 31.1 g/dL (32.0-36.0); Mean Corpuscular Hemoglobin 29.5 pg (27.0-31.0); Mean Corpuscular Volume 95.1 fl (78.0-98.0); Mean Platelet Volume 8.3 fL (7.4-10.4); Platelet Count 329 10x3/uL (130-400); Pregs Control Background? CLEAR/WHITE (CLR/WHITE); Pregs Control Bar Appear? YES (CONTROL BAR); RBC Distribution Width 13.3 % (11.5-14.5); Red Blood Cell (RBC) Count 4.26 mill/uL (4.20-5.40); White Blood Cell (WBC) Count 11.2 10x3/uL (4.8-10.8)
[2022-08-11 05:40] LABS: ALT (SGPT) 29 U/L (8-55); AST (SGOT) 20 U/L (5-34); Albumin 3.7 g/dL (3.5-5.0); Alkaline Phosphatase 64 U/L (40-110); Anion Gap 10 mmol/L (10-20); BUN (Urea Nitrogen) 23 mg/dL (7.0-18.7); Bilirubin, Total 0.2 mg/dL (0.2-1.2); Calc. Creatinine Clearance 0 mL/min (70-130); Calcium 9.7 mg/dL (7.8-10.44); Carbon Dioxide 30 mmol/L (22-29); Chloride 105 mmol/L (98-107); Estimated GFR 87; Globulin 3.6 g/dL (2.4-3.5); Glucose 108 mg/dL (70-105); Potassium 4.5 mmol/L (3.5-5.1); Protein, Total 7.3 g/dL (6.0-8.3); Sodium 140 mmol/L (136-145)
[2022-08-11] MEDS ORDERED: HYDROmorphone 0.5 MG/0.5 ML SYRINGE ONE (06:44)
[2022-08-11] MEDS ORDERED: Acetaminophen 325 MG TAB PO PRN ×2 (08:04→09:29)
[2022-08-11] MEDS ORDERED: busPIRone HCl 10 MG TAB PO PRN (09:29)
[2022-08-11 09:34] VITALS: BMI 79.4
[2022-08-11] MEDS ORDERED: Lidocaine 5% Patch TD PRN (10:15)
[2022-08-11] MEDS ORDERED: FLU VACC QS2022-23(6MOS UP)/PF 60 MCG/0.5 ML SYRINGE IM ONE (10:30)
[2022-08-11] MEDS ORDERED: Nystatin Powder 15 GM BOT TOP PRN (10:56)
[2022-08-11] MEDS ORDERED: Transdermal Patch Removal TOP PRN (10:56)
[2022-08-11] MEDS ORDERED: predniSONE 20 MG TAB PO SCH (11:00)
[2022-08-11] MEDS ORDERED: FLUoxetine HCl 20 MG CAP PO SCH (11:00)
[2022-08-11] MEDS ORDERED: Lisinopril 20 MG TAB PO SCH (11:00)
[2022-08-11] MEDS ORDERED: lamoTRIgine 100 MG TAB PO SCH (11:00)
[2022-08-11] MEDS ORDERED: DULoxetine 30 MG CAP PO SCH (11:30)
[2022-08-11] MEDS: Ibuprofen 600 MG TAB PO PRN ×2 (12:46→20:30)
[2022-08-11] MEDS: busPIRone HCl 10 MG TAB PO SCH ×2 (15:29→20:30)
[2022-08-11] MEDS: lamoTRIgine 100 MG TAB PO SCH (15:29)
[2022-08-11] MEDS ORDERED: Gabapentin 100 MG CAP PO PRN (16:17)
[2022-08-11] MEDS ORDERED: Aripiprazole 15 MG TAB PO SCH (21:00)
[2022-08-11] MEDS ORDERED: Topiramate 100 MG TAB PO SCH (21:00)
[2022-08-11] MEDS ORDERED: Aripiprazole 10 MG TAB PO SCH (21:00)
[2022-08-11] MEDS ORDERED: Mirtazapine 15 MG TAB PO SCH (21:00)
[2022-08-11] MEDS ORDERED: Atorvastatin Calcium 40 MG TAB PO SCH (21:00)
[2022-08-12 06:41] LABS: #Basophils 0.1 thou/uL (0.0-0.2); #Eosinphils 0.1 thou/uL (0.0-0.7); #Lymphocytes 2.9 thou/uL (1.20-3.40); #Monocytes 0.8 thou/uL (0.11-0.59); #Neutrophils 7.6 thou/uL (1.40-6.50); %Basophils 0.6 % (0.0-1.0); %Lymphocytes 25.2 % (21.0-51.0); %Monocytes 6.7 % (0.0-10.0); %Neutrophils 66.5 % (42.0-75.0); Hemoglobin 12.8 g/dL (12.0-16.0); Mean Corpuscular HGB CONC 31.8 g/dL (32.0-36.0); Mean Corpuscular Hemoglobin 30.4 pg (27.0-31.0); Mean Corpuscular Volume 95.5 fl (78.0-98.0); Platelet Count 345 10x3/uL (130-400); Red Blood Cell (RBC) Count 4.22 mill/uL (4.20-5.40); White Blood Cell (WBC) Count 11.4 10x3/uL (4.8-10.8)
[2022-08-12 07:10] LABS: Anion Gap 13 mmol/L (10-20); BUN (Urea Nitrogen) 17 mg/dL (7.0-18.7); Calc. Creatinine Clearance 340 mL/min (70-130); Calcium 9.5 mg/dL (7.8-10.44); Carbon Dioxide 25 mmol/L (22-29); Chloride 104 mmol/L (98-107); Estimated GFR 110; Glucose 113 mg/dL (70-105); Potassium 3.8 mmol/L (3.5-5.1); Sodium 138 mmol/L (136-145)
[2022-08-12] MEDS ORDERED: metFORMIN 500 MG TAB PO SCH (08:00)
[2022-08-12] MEDS ORDERED: predniSONE 20 MG TAB PO SCH (08:00)
[2022-08-12 08:15] VITALS: TEMP 97.6
[2022-08-12] MEDS: lamoTRIgine 100 MG TAB PO SCH (08:38)
[2022-08-12 08:39] VITALS: BP 132/77
[2022-08-12] MEDS: busPIRone HCl 10 MG TAB PO SCH (08:39)
[2022-08-12] MEDS ORDERED: DULoxetine 30 MG CAP PO SCH (09:00)
[2022-08-12] MEDS ORDERED: Aspirin 325 mg Enteric Coated Tablet PO SCH (09:00)
[2022-08-12] MEDS ORDERED: Saccharomyces boulardii 250 MG CAP PO SCH (09:00)
[2022-08-12] MEDS ORDERED: FLUoxetine HCl 20 MG CAP PO SCH (09:00)
[2022-08-12] MEDS ORDERED: Lisinopril 20 MG TAB PO SCH (09:00)
== END 2022-08-12 10:45 | disposition home or self-care (01) ==
LOC: ERS 03:00 → T4-A 07:12
PROVIDERS: ADMIT Family Medicine; ATTEND Family Medicine
DX: G89.29 Other chronic pain (principal); M54.50 Low back pain, unspecified; R32 Unspecified urinary incontinence; R73.03 Prediabetes; I10 Essential (primary) hypertension; G43.909 Migraine, unspecified, not intractable, without status migrainosus; K21.9 Gastro-esophageal reflux disease without esophagitis; M48.061 Spinal stenosis, lumbar region without neurogenic claudication; M48.07 Spinal stenosis, lumbosacral region; E66.01 Morbid (severe) obesity due to excess calories; Z68.45 Body mass index [BMI] 70 or greater, adult; Z79.82 Long term (current) use of aspirin; Z79.84 Long term (current) use of oral hypoglycemic drugs; Z79.899 Other long term (current) drug therapy; Z88.8 Allergy status to other drugs, medicaments and biological substances; Z98.1 Arthrodesis status
CPT/HCPCS: 36415; 36416; 72128; 72131; 80048; 80053; 81003; 81015; 84703; 85025; 85652; 86140; 93005; 96372; 96374; G0378; J1170; J2360; J7512

== ENCOUNTER 2022-09-15 21:00 | Emergency (ER) | payer OTHER ==
[2022-09-15 21:59] LABS: #Eosinphils 0.3 thou/uL (0.0-0.7); #Lymphocytes 2.5 thou/uL (1.20-3.40); #Monocytes 0.9 thou/uL (0.11-0.59); #Neutrophils 6.1 thou/uL (1.40-6.50); %Basophils 0.5 % (0.0-1.0); %Eosinophils 2.7 % (0.0-10.0); %Lymphocytes 25.3 % (21.0-51.0); %Monocytes 8.8 % (0.0-10.0); %Neutrophils 62.8 % (42.0-75.0); Hemoglobin 12.9 g/dL (12.0-16.0); Mean Corpuscular HGB CONC 32.9 g/dL (32.0-36.0); Mean Corpuscular Hemoglobin 30.8 pg (27.0-31.0); Mean Corpuscular Volume 93.7 fl (78.0-98.0); Platelet Count 354 10x3/uL (130-400); RBC Distribution Width 13.3 % (11.5-14.5); Red Blood Cell (RBC) Count 4.19 mill/uL (4.20-5.40); White Blood Cell (WBC) Count 9.7 10x3/uL (4.8-10.8)
[2022-09-15 22:22] LABS: ALT (SGPT) 19 U/L (8-55); AST (SGOT) 13 U/L (5-34); Albumin 3.8 g/dL (3.5-5.0); Alkaline Phosphatase 58 U/L (40-110); Anion Gap 14 mmol/L (10-20); BUN (Urea Nitrogen) 16 mg/dL (7.0-18.7); Bilirubin, Total 0.2 mg/dL (0.2-1.2); Calc. Creatinine Clearance 0 mL/min (70-130); Calcium 9.4 mg/dL (7.8-10.44); Carbon Dioxide 25 mmol/L (22-29); Chloride 106 mmol/L (98-107); Estimated GFR 104; Globulin 2.8 g/dL (2.4-3.5); Glucose 93 mg/dL (70-105); Lipase 30 U/L (8-78); Potassium 4.4 mmol/L (3.5-5.1); Protein, Total 6.6 g/dL (6.0-8.3); Sodium 141 mmol/L (136-145)
[2022-09-15] MEDS ORDERED: Lidocaine Viscous Sol 2% 15 ml UD Cup ONE (22:31)
[2022-09-15] MEDS ORDERED: Mag-Al 1200 mg/1200 mg/30 ML UDCUP ONE (22:32)
[2022-09-15] MEDS ORDERED: Ketorolac Tromethamine 30 MG/ML VIAL ONE (23:08)
[2022-09-16 00:49] LABS: Alcohol Less than 10 mg/dL (Less than 10); Salicylate Less than 8.0 mg/dL (15.0-30.0)
[2022-09-16 00:58] LABS: BHCG - Serum Negative (NEGATIVE); Pregs Control Background? CLEAR/WHITE (CLR/WHITE); Pregs Control Bar Appear? YES (CONTROL BAR)
[2022-09-16 01:20] LABS: Amphetamine Not Detected (NotDetected); Barbiturates Screen Not Detected (NotDetected); Benzodiazepine Screen Not Detected (NotDetected); Cocaine Metabolite Screen Not Detected (NotDetected); Methadone Not Detected (NotDetected); Methamphetamine Not Detected (NotDetected); Opiate Screen Detected (NotDetected); Oxycodone Screen Not Detected (NotDetected); Phencyclidine (PCP) Not Detected (NotDetected); THC/Cannabinoid Screen Not Detected (NotDetected); Tricyclic Screen Not Detected (NotDetected)
[2022-09-16 01:41] LABS: Troponin I Less than 0.010 ng/mL (< 0.028)
[2022-09-16 02:28] LABS: Acetaminophen Less than 10.0 mcg/mL (10.0-30.0)
== END 2022-09-16 10:12 ==
LOC: ERS 21:00
DX: R45.851 Suicidal ideations (principal); E78.00 Pure hypercholesterolemia, unspecified; I11.0 Hypertensive heart disease with heart failure; I50.9 Heart failure, unspecified; E66.9 Obesity, unspecified
CPT/HCPCS: 36415; 71045; 80053; 80306; 80307; 83690; 83880; 84443; 84484; 84703; 85025; 85379; 93005; 96374; J1885

== ENCOUNTER 2022-09-30 18:27 | Observation (INO) | payer OTHER ==
[2022-09-30] MEDS ORDERED: Morphine 4 MG/ML VIAL ONE ×2 (19:11→20:34)
[2022-09-30] MEDS ORDERED: Cefepime 1 GM VIAL ONE (19:11)
[2022-09-30] MEDS ORDERED: Ondansetron PF 4 MG/2 ML Vial ONE (19:11)
[2022-09-30 19:20] LABS: #Eosinphils 0.1 thou/uL (0.0-0.7); #Lymphocytes 1.7 thou/uL (1.20-3.40); #Monocytes 0.8 thou/uL (0.11-0.59); #Neutrophils 5.7 thou/uL (1.40-6.50); %Lymphocytes 20.2 % (21.0-51.0); %Monocytes 9.7 % (0.0-10.0); %Neutrophils 69.2 % (42.0-75.0); Hemoglobin 11.5 g/dL (12.0-16.0); Mean Corpuscular HGB CONC 33.6 g/dL (32.0-36.0); Mean Corpuscular Hemoglobin 30.8 pg (27.0-31.0); Mean Corpuscular Volume 91.7 fl (78.0-98.0); Mean Platelet Volume 8.2 fL (7.4-10.4); Platelet Count 216 10x3/uL (130-400); RBC Distribution Width 13.5 % (11.5-14.5); Red Blood Cell (RBC) Count 3.73 mill/uL (4.20-5.40); White Blood Cell (WBC) Count 8.2 10x3/uL (4.8-10.8)
[2022-09-30 19:44] LABS: ALT (SGPT) 25 U/L (8-55); AST (SGOT) 27 U/L (5-34); Albumin 3.4 g/dL (3.5-5.0); Alkaline Phosphatase 75 U/L (40-110); Anion Gap 14 mmol/L (10-20); BUN (Urea Nitrogen) 11 mg/dL (7.0-18.7); Bilirubin, Total 0.3 mg/dL (0.2-1.2); Calc. Creatinine Clearance 0 mL/min (70-130); Calcium 8.8 mg/dL (7.8-10.44); Carbon Dioxide 22 mmol/L (22-29); Chloride 106 mmol/L (98-107); Estimated GFR 101; Globulin 3.2 g/dL (2.4-3.5); Glucose 86 mg/dL (70-105); Potassium 4.4 mmol/L (3.5-5.1); Protein, Total 6.6 g/dL (6.0-8.3); Sodium 138 mmol/L (136-145)
[2022-09-30] MEDS ORDERED: Ondansetron ODT 4 MG TAB PO PRN (20:33)
[2022-09-30] MEDS ORDERED: Vancomycin 1 GM/200 ML (FROZEN) BAG ONE (20:42)
[2022-09-30] MEDS ORDERED: Vancomycin 1 GM in Premix Bag 1 BAG IVPB SCH ×2 (21:00→23:59)
[2022-09-30] MEDS ORDERED: Ibuprofen 600 MG TAB PO PRN (21:59)
[2022-09-30] MEDS ORDERED: Fluconazole 100 MG TAB PO SCH (22:00)
[2022-09-30] MEDS ORDERED: lamoTRIgine 100 MG TAB PO SCH (23:00)
[2022-09-30] MEDS ORDERED: traZODone HCl 150 MG TAB PO SCH (23:00)
[2022-09-30 23:29] VITALS: BMI 79.6
[2022-10-01] MEDS: Nystatin Powder 15 GM BOT TOP SCH ×3 (00:07→14:38)
[2022-10-01] MEDS ORDERED: Morphine 4 MG/ML VIAL SLOW IVP PRN (01:05)
[2022-10-01] MEDS: Acetaminophen 500 MG TAB PO SCH ×2 (04:07→09:19)
[2022-10-01 06:37] LABS: #Basophils 0.1 thou/uL (0.0-0.2); #Eosinphils 0.1 thou/uL (0.0-0.7); #Lymphocytes 1.7 thou/uL (1.20-3.40); #Monocytes 0.9 thou/uL (0.11-0.59); #Neutrophils 5.1 thou/uL (1.40-6.50); %Basophils 1.2 % (0.0-1.0); %Eosinophils 1.3 % (0.0-10.0); %Lymphocytes 21.5 % (21.0-51.0); %Monocytes 11.7 % (0.0-10.0); %Neutrophils 64.3 % (42.0-75.0); Hemoglobin 10.6 g/dL (12.0-16.0); Mean Corpuscular HGB CONC 33.2 g/dL (32.0-36.0); Mean Corpuscular Volume 93.2 fl (78.0-98.0); Platelet Count 214 10x3/uL (130-400); RBC Distribution Width 13.6 % (11.5-14.5); Red Blood Cell (RBC) Count 3.43 mill/uL (4.20-5.40); White Blood Cell (WBC) Count 7.9 10x3/uL (4.8-10.8)
[2022-10-01 07:03] LABS: Anion Gap 12 mmol/L (10-20); BUN (Urea Nitrogen) 10 mg/dL (7.0-18.7); Calc. Creatinine Clearance 356 mL/min (70-130); Calcium 8.7 mg/dL (7.8-10.44); Carbon Dioxide 22 mmol/L (22-29); Chloride 107 mmol/L (98-107); Estimated GFR 114; Glucose 92 mg/dL (70-105); Potassium 4.2 mmol/L (3.5-5.1); Sodium 137 mmol/L (136-145)
[2022-10-01] MEDS ORDERED: lamoTRIgine 100 MG TAB PO SCH (07:30)
[2022-10-01] MEDS ORDERED: metFORMIN 500 MG TAB PO SCH (07:30)
[2022-10-01] MEDS ORDERED: FLU VACC QS2022-23(6MOS UP)/PF 60 MCG/0.5 ML SYRINGE IM ONE (09:00)
[2022-10-01] MEDS ORDERED: Famotidine 20 MG TAB PO SCH (09:00)
[2022-10-01] MEDS ORDERED: Gabapentin 300 MG CAP PO SCH (09:00)
[2022-10-01] MEDS ORDERED: Enoxaparin Sodium 40 MG/0.4 ML SYRINGE SC SCH (09:00)
[2022-10-01] MEDS ORDERED: LURASIDONE 20 MG PO SCH (09:00)
[2022-10-01] MEDS ORDERED: HYDROcodone/Acetaminophen 5/325 mg Tablet PO PRN (09:55)
[2022-10-01] MEDS ORDERED: VANCOMYCIN 2 GRAM/500 ML BAG 2 GM in Premix Bag 1 BAG IVPB SCH (10:00)
[2022-10-01] MEDS ORDERED: Cephalexin 250 MG CAP PO SCH (12:00)
[2022-10-01 12:02] VITALS: BP 149/74; TEMP 97.9
[2022-10-01] MEDS ORDERED: traZODone HCl 150 MG TAB PO SCH (21:00)
[2022-10-01] MEDS ORDERED: Atorvastatin Calcium 40 MG TAB PO SCH (21:00)
[2022-10-07] MEDS ORDERED: Fluconazole 100 MG TAB PO SCH ×2 (09:00)
== END 2022-10-01 15:27 | disposition home health service (06) ==
LOC: ERS 18:27 → SURG A 20:08
PROVIDERS: ADMIT Student in an Organized Health Care Education/Training Program; ATTEND Student in an Organized Health Care Education/Training Program
DX: L03.311 Cellulitis of abdominal wall (principal); B37.2 Candidiasis of skin and nail; R73.03 Prediabetes; K21.9 Gastro-esophageal reflux disease without esophagitis; G47.33 Obstructive sleep apnea (adult) (pediatric); E78.00 Pure hypercholesterolemia, unspecified; I11.0 Hypertensive heart disease with heart failure; I50.9 Heart failure, unspecified; F31.9 Bipolar disorder, unspecified; F41.8 Other specified anxiety disorders; G47.00 Insomnia, unspecified; E66.01 Morbid (severe) obesity due to excess calories; Z68.45 Body mass index [BMI] 70 or greater, adult; Z79.84 Long term (current) use of oral hypoglycemic drugs; Z79.899 Other long term (current) drug therapy; Z88.8 Allergy status to other drugs, medicaments and biological substances
CPT/HCPCS: 36415; 80048; 80053; 83605; 83880; 84145; 85025; 87040; 87070; 87077; 87205; 93005; 96365; 96367; 96372; 96375; 96376; 97139; G0378; J0692; J1650; J2270; J2405; J3370; J3370-JW

== ENCOUNTER 2022-10-02 21:16 | Inpatient (IN) | payer OTHER ==
[2022-10-02] MEDS ORDERED: Vancomycin 1 GM/200 ML (FROZEN) BAG ONE (21:32)
[2022-10-02] MEDS ORDERED: Ondansetron PF 4 MG/2 ML Vial ONE (21:32)
[2022-10-02] MEDS ORDERED: Morphine 4 MG/ML VIAL ONE (21:32)
[2022-10-02] MEDS ORDERED: Cefepime 2 GM VIAL ONE (21:32)
[2022-10-02 21:56] LABS: #Basophils 0.1 thou/uL (0.0-0.2); #Eosinphils 0.2 thou/uL (0.0-0.7); #Neutrophils 6.1 thou/uL (1.40-6.50); %Basophils 0.7 % (0.0-1.0); %Lymphocytes 21.8 % (21.0-51.0); %Monocytes 10.1 % (0.0-10.0); %Neutrophils 65.3 % (42.0-75.0); Hemoglobin 11.4 g/dL (12.0-16.0); Mean Corpuscular HGB CONC 32.9 g/dL (32.0-36.0); Mean Corpuscular Hemoglobin 30.3 pg (27.0-31.0); Mean Corpuscular Volume 92.1 fl (78.0-98.0); Mean Platelet Volume 7.8 fL (7.4-10.4); Platelet Count 319 10x3/uL (130-400); RBC Distribution Width 13.4 % (11.5-14.5); Red Blood Cell (RBC) Count 3.78 mill/uL (4.20-5.40); White Blood Cell (WBC) Count 9.4 10x3/uL (4.8-10.8)
[2022-10-02 22:16] LABS: ALT (SGPT) 19 U/L (8-55); AST (SGOT) 22 U/L (5-34); Albumin 3.4 g/dL (3.5-5.0); Alkaline Phosphatase 77 U/L (40-110); Anion Gap 12 mmol/L (10-20); BUN (Urea Nitrogen) 16 mg/dL (7.0-18.7); Bilirubin, Total Less than 0.2 mg/dL (0.2-1.2); Calc. Creatinine Clearance 0 mL/min (70-130); Calcium 9.5 mg/dL (7.8-10.44); Carbon Dioxide 29 mmol/L (22-29); Chloride 105 mmol/L (98-107); Estimated GFR 94; Globulin 4.1 g/dL (2.4-3.5); Glucose 94 mg/dL (70-105); Potassium 4.5 mmol/L (3.5-5.1); Protein, Total 7.5 g/dL (6.0-8.3); Sodium 141 mmol/L (136-145)
[2022-10-02] MEDS ORDERED: Sodium Chloride 0.9% 1,000 ML IV SCH (23:30)
[2022-10-03] MEDS ORDERED: Ondansetron PF 4 MG/2 ML Vial IVP PRN (00:13)
[2022-10-03] MEDS ORDERED: Ondansetron ODT 4 MG TAB PO PRN (00:13)
[2022-10-03] MEDS ORDERED: Ibuprofen 600 MG TAB PO PRN (00:22)
[2022-10-03] MEDS: Acetaminophen 325 MG TAB PO SCH ×6 (02:29→21:05)
[2022-10-03] MEDS: traMADol HCl 50 MG TAB PO PRN ×2 (02:30→21:05)
[2022-10-03 03:19] VITALS: BMI 79.0
[2022-10-03] MEDS ORDERED: Morphine 2 MG/ML VIAL SLOW IVP SCH (04:45)
[2022-10-03] MEDS ORDERED: Cephalexin 250 MG CAP PO SCH (06:00)
[2022-10-03 07:08] LABS: #Eosinphils 0.2 thou/uL (0.0-0.7); #Neutrophils 6.5 thou/uL (1.40-6.50); %Basophils 0.2 % (0.0-1.0); %Eosinophils 2.2 % (0.0-10.0); %Lymphocytes 20.3 % (21.0-51.0); %Monocytes 10.4 % (0.0-10.0); %Neutrophils 66.8 % (42.0-75.0); Hemoglobin 10.9 g/dL (12.0-16.0); Mean Corpuscular HGB CONC 33.3 g/dL (32.0-36.0); Mean Corpuscular Volume 93.1 fl (78.0-98.0); Mean Platelet Volume 7.4 fL (7.4-10.4); Platelet Count 305 10x3/uL (130-400); RBC Distribution Width 13.4 % (11.5-14.5); Red Blood Cell (RBC) Count 3.51 mill/uL (4.20-5.40); White Blood Cell (WBC) Count 9.8 10x3/uL (4.8-10.8)
[2022-10-03 07:27] LABS: Anion Gap 14 mmol/L (10-20); BUN (Urea Nitrogen) 12 mg/dL (7.0-18.7); Calc. Creatinine Clearance 364 mL/min (70-130); Calcium 8.9 mg/dL (7.8-10.44); Carbon Dioxide 23 mmol/L (22-29); Chloride 108 mmol/L (98-107); Estimated GFR 115; Glucose 94 mg/dL (70-105); Potassium 4.2 mmol/L (3.5-5.1); Sodium 141 mmol/L (136-145)
[2022-10-03] MEDS: Famotidine 20 MG TAB PO SCH ×2 (08:40→21:07)
[2022-10-03] MEDS: lamoTRIgine 100 MG TAB PO SCH ×2 (08:40→16:00)
[2022-10-03] MEDS: metFORMIN 500 MG TAB PO SCH (08:41)
[2022-10-03] MEDS: Gabapentin 100 MG CAP PO SCH ×2 (08:41→21:07)
[2022-10-03] MEDS: Bupropion 150 MG XL TAB PO SCH (08:41)
[2022-10-03] MEDS ORDERED: Lurasidone 40 MG TAB PO SCH (09:00)
[2022-10-03] MEDS: Nystatin Powder 15 GM BOT TOP SCH ×3 (10:36→21:09)
[2022-10-03] MEDS: Lurasidone 20 MG TABLET PO SCH (10:36)
[2022-10-03] MEDS: VANCOMYCIN 2 GRAM/500 ML BAG 2 GM in Premix Bag 1 BAG IVPB SCH ×2 (13:04→22:38)
[2022-10-03] MEDS ORDERED: Lithium Carbonate 150 MG CAP PO SCH (21:00)
[2022-10-03] MEDS: Atorvastatin Calcium 10 MG TAB PO SCH (21:08)
[2022-10-03] MEDS: traZODone HCl 50 MG TAB PO SCH (21:08)
[2022-10-04] MEDS: Acetaminophen 325 MG TAB PO SCH ×6 (00:25→20:47)
[2022-10-04 05:59] LABS: #Eosinphils 0.2 thou/uL (0.0-0.7); #Lymphocytes 1.9 thou/uL (1.20-3.40); #Monocytes 0.7 thou/uL (0.11-0.59); #Neutrophils 4.7 thou/uL (1.40-6.50); %Basophils 0.4 % (0.0-1.0); %Eosinophils 2.6 % (0.0-10.0); %Lymphocytes 25.2 % (21.0-51.0); %Monocytes 9.6 % (0.0-10.0); %Neutrophils 62.2 % (42.0-75.0); Hemoglobin 10.5 g/dL (12.0-16.0); Mean Corpuscular HGB CONC 32.5 g/dL (32.0-36.0); Mean Corpuscular Hemoglobin 30.3 pg (27.0-31.0); Mean Corpuscular Volume 93.2 fl (78.0-98.0); Mean Platelet Volume 7.5 fL (7.4-10.4); Platelet Count 329 10x3/uL (130-400); RBC Distribution Width 13.4 % (11.5-14.5); Red Blood Cell (RBC) Count 3.46 mill/uL (4.20-5.40); White Blood Cell (WBC) Count 7.5 10x3/uL (4.8-10.8)
[2022-10-04 06:18] LABS: Anion Gap 12 mmol/L (10-20); BUN (Urea Nitrogen) 11 mg/dL (7.0-18.7); Calc. Creatinine Clearance 359 mL/min (70-130); Calcium 8.7 mg/dL (7.8-10.44); Carbon Dioxide 22 mmol/L (22-29); Chloride 109 mmol/L (98-107); Estimated GFR 114; Glucose 134 mg/dL (70-105); Potassium 4.2 mmol/L (3.5-5.1)
[2022-10-04 06:33] LABS: Sodium 139 mmol/L (136-145)
[2022-10-04] MEDS: VANCOMYCIN 2 GRAM/500 ML BAG 2 GM in Premix Bag 1 BAG IVPB SCH (07:11)
[2022-10-04] MEDS: lamoTRIgine 100 MG TAB PO SCH ×2 (08:54→15:37)
[2022-10-04] MEDS: Gabapentin 100 MG CAP PO SCH ×2 (08:54→20:49)
[2022-10-04] MEDS: metFORMIN 500 MG TAB PO SCH (08:54)
[2022-10-04] MEDS: Famotidine 20 MG TAB PO SCH ×2 (08:55→20:48)
[2022-10-04] MEDS: Lurasidone 20 MG TABLET PO SCH (08:55)
[2022-10-04] MEDS: Amlodipine 5 MG TAB PO SCH (08:55)
[2022-10-04] MEDS: Morphine 4 MG/ML VIAL SLOW IVP PRN ×3 (08:55→20:42)
[2022-10-04] MEDS: Bupropion 150 MG XL TAB PO SCH (08:55)
[2022-10-04] MEDS: Nystatin Powder 15 GM BOT TOP SCH ×3 (09:04→20:52)
[2022-10-04] MEDS: Ibuprofen 600 MG TAB PO SCH ×3 (11:23→23:06)
[2022-10-04] MEDS ORDERED: VANCOMYCIN 2 GRAM/500 ML BAG 2 GM in Premix Bag 1 BAG IVPB SCH (14:00)
[2022-10-04 14:39] LABS: Vancomycin, Random 12.4 ug/mL (See Comment)
[2022-10-04 15:33] LABS: Campy jejuni + coli by PCR Negative (Negative); STEC Shiga Toxin 1+2 Negative (Negative); Salmonella spp. by PCR Negative (Negative); Shigella spp + EIEC by PCR Negative (Negative)
[2022-10-04] MEDS: Vancomycin 1 GM in Premix Bag 1 BAG IVPB SCH ×2 (15:38→23:07)
[2022-10-04] MEDS ORDERED: Loperamide HCl 2 MG CAP PO PRN (17:52)
[2022-10-04] MEDS: Lithium Carbonate 150 MG CAP PO SCH (20:47)
[2022-10-04] MEDS: Atorvastatin Calcium 10 MG TAB PO SCH (20:47)
[2022-10-04] MEDS: traZODone HCl 50 MG TAB PO SCH (20:48)
[2022-10-05] MEDS: Acetaminophen 325 MG TAB PO SCH ×2 (00:56→04:22)
[2022-10-05] MEDS: Morphine 4 MG/ML VIAL SLOW IVP PRN ×3 (01:18→14:04)
[2022-10-05] MEDS: Ibuprofen 600 MG TAB PO SCH (04:21)
[2022-10-05] MEDS: Vancomycin 1 GM in Premix Bag 1 BAG IVPB SCH ×2 (06:02→16:00)
[2022-10-05 07:40] VITALS: BP 148/89; TEMP 98.1
[2022-10-05 07:40] LABS: #Eosinphils 0.3 thou/uL (0.0-0.7); #Lymphocytes 1.9 thou/uL (1.20-3.40); #Monocytes 0.8 thou/uL (0.11-0.59); #Neutrophils 4.8 thou/uL (1.40-6.50); %Basophils 0.3 % (0.0-1.0); %Eosinophils 3.6 % (0.0-10.0); %Lymphocytes 24.1 % (21.0-51.0); %Monocytes 10.6 % (0.0-10.0); %Neutrophils 61.3 % (42.0-75.0); Hemoglobin 10.6 g/dL (12.0-16.0); Mean Corpuscular HGB CONC 33.2 g/dL (32.0-36.0); Mean Corpuscular Volume 93.3 fl (78.0-98.0); Mean Platelet Volume 7.6 fL (7.4-10.4); Platelet Count 338 10x3/uL (130-400); RBC Distribution Width 13.4 % (11.5-14.5); Red Blood Cell (RBC) Count 3.41 mill/uL (4.20-5.40); White Blood Cell (WBC) Count 7.8 10x3/uL (4.8-10.8)
[2022-10-05] MEDS ORDERED: Acetaminophen 500 MG TAB PO PRN (08:14)
[2022-10-05] MEDS ORDERED: Ibuprofen 100 MG/5 ML UDCUP PO PRN (08:16)
[2022-10-05 08:34] LABS: Anion Gap 13 mmol/L (10-20); BUN (Urea Nitrogen) 9 mg/dL (7.0-18.7); Calc. Creatinine Clearance 375 mL/min (70-130); Calcium 8.7 mg/dL (7.8-10.44); Carbon Dioxide 21 mmol/L (22-29); Chloride 107 mmol/L (98-107); Estimated GFR 116; Glucose 97 mg/dL (70-105); Potassium 4.7 mmol/L (3.5-5.1); Sodium 136 mmol/L (136-145)
[2022-10-05] MEDS: Lithium Carbonate 150 MG CAP PO SCH ×2 (08:37→20:01)
[2022-10-05] MEDS: Famotidine 20 MG TAB PO SCH ×2 (08:37→20:01)
[2022-10-05] MEDS: Lurasidone 20 MG TABLET PO SCH (08:37)
[2022-10-05] MEDS: Amlodipine 5 MG TAB PO SCH (08:38)
[2022-10-05] MEDS: Bupropion 150 MG XL TAB PO SCH (08:38)
[2022-10-05] MEDS: lamoTRIgine 100 MG TAB PO SCH ×2 (08:38→16:00)
[2022-10-05] MEDS: Gabapentin 300 MG CAP PO SCH ×3 (08:38→20:02)
[2022-10-05] MEDS: metFORMIN 500 MG TAB PO SCH (08:38)
[2022-10-05] MEDS: Nystatin Powder 15 GM BOT TOP SCH ×2 (08:39→16:00)
[2022-10-05 14:38] LABS: Vancomycin, Trough 11.8 ug/mL
[2022-10-05] MEDS ORDERED: Cephalexin 250 MG CAP PO SCH (18:00)
[2022-10-05] MEDS: Atorvastatin Calcium 10 MG TAB PO SCH (20:01)
== END 2022-10-05 20:20 | DRG 607 ==
LOC: ERS 21:16 → T4-B 10-03 02:17
PROVIDERS: ADMIT Family Medicine; ATTEND Family Medicine
DX: B37.2 Candidiasis of skin and nail (principal); Z68.45 Body mass index [BMI] 70 or greater, adult; M79.3 Panniculitis, unspecified; L30.4 Erythema intertrigo; R19.7 Diarrhea, unspecified; E66.01 Morbid (severe) obesity due to excess calories; F31.9 Bipolar disorder, unspecified; F41.9 Anxiety disorder, unspecified; I10 Essential (primary) hypertension; E78.5 Hyperlipidemia, unspecified; Z88.8 Allergy status to other drugs, medicaments and biological substances; Z79.899 Other long term (current) drug therapy; Z90.710 Acquired absence of both cervix and uterus; Z98.51 Tubal ligation status; Z83.3 Family history of diabetes mellitus; Z86.16 Personal history of COVID-19
CPT/HCPCS: 36415; 80048; 80053; 80178; 80202; 83605; 85025; 87040; 87149; 87324; 87449; 87505; 96365; 96375; 97139; J0692; J1650; J2270; J2272; J2405; J3370; J3370-JW; J7050; Q0162; U0003; U0005

== ENCOUNTER 2022-11-09 10:55 | Emergency (ER) | payer OTHER ==
[2022-11-09 12:00] LABS: #Eosinphils 0.4 thou/uL (0.0-0.7); #Lymphocytes 2.5 thou/uL (1.20-3.40); #Monocytes 0.8 thou/uL (0.11-0.59); #Neutrophils 7.5 thou/uL (1.40-6.50); %Basophils 0.2 % (0.0-1.0); %Eosinophils 3.4 % (0.0-10.0); %Lymphocytes 22.6 % (21.0-51.0); %Monocytes 6.8 % (0.0-10.0); Hemoglobin 14.2 g/dL (12.0-16.0); Mean Corpuscular HGB CONC 34.2 g/dL (32.0-36.0); Mean Corpuscular Hemoglobin 31.1 pg (27.0-31.0); Mean Corpuscular Volume 90.8 fl (78.0-98.0); Platelet Count 365 10x3/uL (130-400); RBC Distribution Width 13.9 % (11.5-14.5); Red Blood Cell (RBC) Count 4.58 mill/uL (4.20-5.40); White Blood Cell (WBC) Count 11.2 10x3/uL (4.8-10.8)
[2022-11-09 12:05] LABS: Bilirubin Negative (Negative); Blood, Urine Negative (Negative); Glucose, Urine (Dipstick) Normal (Negative); Ketone, Urine Negative (Negative); Leukocyte Negative Leu/uL (Negative); Nitrite Negative (Negative); Protein, Urine (Dipstick) 20 mg/dL (Neg-Trace); Specific Gravity, Urine 1.021 (1.002-1.036); Urobilinogen Normal mg/dL (Less than 2); pH, Urine 5.5 (5.0-9.0)
[2022-11-09 12:12] LABS: Acetaminophen Less than 10.0 mcg/mL (10.0-30.0); Alcohol Less than 10 mg/dL (Less than 10); Salicylate Less than 8.0 mg/dL (15.0-30.0)
[2022-11-09 12:14] LABS: ALT (SGPT) 22 U/L (8-55); AST (SGOT) 25 U/L (5-34); Alcohol Less than 10 mg/dL (Less than 10); Alkaline Phosphatase 72 U/L (40-110); Anion Gap 16 mmol/L (10-20); BUN (Urea Nitrogen) 18 mg/dL (7.0-18.7); Bilirubin, Total 0.2 mg/dL (0.2-1.2); CK (CPK) 30 U/L (29-168); Calc. Creatinine Clearance 0 mL/min (70-130); Calcium 10.5 mg/dL (7.8-10.44); Carbon Dioxide 22 mmol/L (22-29); Chloride 102 mmol/L (98-107); Estimated GFR 108; Globulin 4.5 g/dL (2.4-3.5); Glucose 102 mg/dL (70-105); Protein, Total 8.5 g/dL (6.0-8.3); Sodium 136 mmol/L (136-145)
[2022-11-09 12:24] LABS: Clarity Hazy (Clear)
[2022-11-09 12:28] LABS: Pregnancy Test - Urine (BHCG) Negative (Negative); Pregu Control Background? CLEAR/WHITE (CLR/WHITE); Pregu Control Bar Appear? YES (CONTROL BAR); Specific Gravity 1.021 (1.002-1.036)
[2022-11-09 12:34] LABS: Amphetamine Not Detected (NotDetected); Barbiturates Screen Not Detected (NotDetected); Benzodiazepine Screen Not Detected (NotDetected); Cocaine Metabolite Screen Not Detected (NotDetected); Methadone Not Detected (NotDetected); Methamphetamine Not Detected (NotDetected); Opiate Screen Not Detected (NotDetected); Oxycodone Screen Not Detected (NotDetected); Phencyclidine (PCP) Not Detected (NotDetected); THC/Cannabinoid Screen Not Detected (NotDetected); Tricyclic Screen Not Detected (NotDetected)
[2022-11-10] MEDS ORDERED: Bupropion 150 MG XL TAB PO SCH (13:45)
[2022-11-10] MEDS ORDERED: lamoTRIgine 100 MG TAB PO SCH (15:00)
[2022-11-10] MEDS ORDERED: Lithium Carbonate 150 MG CAP PO SCH (15:00)
[2022-11-11] MEDS ORDERED: Bupropion 150 MG XL TAB PO SCH (09:00)
== END 2022-11-10 14:02 | disposition home or self-care (01) ==
LOC: ERS 10:55
DX: R45.851 Suicidal ideations (principal); E78.00 Pure hypercholesterolemia, unspecified; E66.9 Obesity, unspecified; I11.0 Hypertensive heart disease with heart failure; I50.9 Heart failure, unspecified; Z79.899 Other long term (current) drug therapy
CPT/HCPCS: 36415; 80053; 80178; 80306; 80307; 81003; 81025; 82550; 84443; 85025; 93005; 99284

== ENCOUNTER 2022-11-30 02:53 | Emergency (ER) | payer OTHER ==
[2022-11-30] MEDS ORDERED: Ketorolac Tromethamine 30 MG/ML VIAL ONE ×2 (05:01→05:02)
[2022-11-30] MEDS ORDERED: Azithromycin 500 MG VIAL ONE (05:01)
[2022-11-30] MEDS ORDERED: cefTRIAXone\\ROCEPHIN 1 GM VIAL ONE (05:01)
[2022-11-30 05:10] LABS: #Basophils 0.1 thou/uL (0.0-0.2); #Eosinphils 0.3 thou/uL (0.0-0.7); #Lymphocytes 2.1 thou/uL (1.20-3.40); #Monocytes 0.8 thou/uL (0.11-0.59); #Neutrophils 7.4 thou/uL (1.40-6.50); %Basophils 0.6 % (0.0-1.0); %Eosinophils 2.6 % (0.0-10.0); %Lymphocytes 19.8 % (21.0-51.0); %Monocytes 7.9 % (0.0-10.0); %Neutrophils 69.1 % (42.0-75.0); Hemoglobin 12.9 g/dL (12.0-16.0); Mean Corpuscular HGB CONC 32.8 g/dL (32.0-36.0); Mean Corpuscular Hemoglobin 30.1 pg (27.0-31.0); Mean Corpuscular Volume 91.9 fl (78.0-98.0); Mean Platelet Volume 8.8 fL (7.4-10.4); Platelet Count 313 10x3/uL (130-400); RBC Distribution Width 14.1 % (11.5-14.5); Red Blood Cell (RBC) Count 4.29 mill/uL (4.20-5.40); White Blood Cell (WBC) Count 10.7 10x3/uL (4.8-10.8)
[2022-11-30 05:29] LABS: ALT (SGPT) 24 U/L (8-55); AST (SGOT) 20 U/L (5-34); Albumin 3.7 g/dL (3.5-5.0); Alkaline Phosphatase 71 U/L (40-110); Anion Gap 13 mmol/L (10-20); BUN (Urea Nitrogen) 14 mg/dL (7.0-18.7); Bilirubin, Total 0.2 mg/dL (0.2-1.2); Calc. Creatinine Clearance 0 mL/min (70-130); Calcium 8.9 mg/dL (7.8-10.44); Carbon Dioxide 23 mmol/L (22-29); Chloride 106 mmol/L (98-107); Estimated GFR 99; Glucose 166 mg/dL (70-105); Magnesium 2.1 mg/dL (1.6-2.6); Potassium 3.8 mmol/L (3.5-5.1); Protein, Total 7.7 g/dL (6.0-8.3); Sodium 138 mmol/L (136-145)
[2022-11-30] MEDS ORDERED: Azithromycin 1,000 MG in Sodium Chloride 0.9% 500 ML IVPB SCH (05:45)
[2022-11-30 07:17] LABS: Bilirubin Negative (Negative); Blood, Urine Negative (Negative); Clarity Clear (Clear); Glucose, Urine (Dipstick) Normal (Negative); Ketone, Urine Negative (Negative); Leukocyte Negative Leu/uL (Negative); Nitrite Negative (Negative); Protein, Urine (Dipstick) Negative (Neg-Trace); Specific Gravity, Urine 1.025 (1.002-1.036); Urobilinogen Normal mg/dL (Less than 2)
== END 2022-11-30 08:47 | disposition home or self-care (01) ==
LOC: ERS 02:53
DX: J18.9 Pneumonia, unspecified organism (principal); R07.81 Pleurodynia; R00.0 Tachycardia, unspecified; R06.82 Tachypnea, not elsewhere classified; E66.01 Morbid (severe) obesity due to excess calories; I11.0 Hypertensive heart disease with heart failure; I50.9 Heart failure, unspecified; E78.00 Pure hypercholesterolemia, unspecified; F17.290 Nicotine dependence, other tobacco product, uncomplicated; Z79.84 Long term (current) use of oral hypoglycemic drugs; Z79.899 Other long term (current) drug therapy
CPT/HCPCS: 71045; 80053; 81003; 83605; 83735; 83880; 84484; 85025; 85379; 87040; 87086; 93005; J0456; J0696; J1885; J7030

== ENCOUNTER 2022-12-01 02:38 | Emergency (ER) | payer OTHER ==
[2022-12-01] MEDS ORDERED: Ketorolac Tromethamine 30 MG/ML VIAL ONE (03:26)
[2022-12-01] MEDS ORDERED: Morphine 4 MG/ML VIAL ONE (03:26)
[2022-12-01 04:14] LABS: #Basophils 0.1 thou/uL (0.0-0.2); #Eosinphils 0.2 thou/uL (0.0-0.7); #Lymphocytes 2.4 thou/uL (1.20-3.40); #Monocytes 0.7 thou/uL (0.11-0.59); #Neutrophils 5.4 thou/uL (1.40-6.50); %Basophils 0.8 % (0.0-1.0); %Eosinophils 2.3 % (0.0-10.0); %Lymphocytes 27.4 % (21.0-51.0); %Monocytes 8.2 % (0.0-10.0); %Neutrophils 61.3 % (42.0-75.0); Hemoglobin 12.7 g/dL (12.0-16.0); Mean Corpuscular HGB CONC 32.3 g/dL (32.0-36.0); Mean Corpuscular Hemoglobin 29.7 pg (27.0-31.0); Mean Platelet Volume 8.5 fL (7.4-10.4); Platelet Count 310 10x3/uL (130-400); RBC Distribution Width 14.1 % (11.5-14.5); Red Blood Cell (RBC) Count 4.27 mill/uL (4.20-5.40); White Blood Cell (WBC) Count 8.8 10x3/uL (4.8-10.8)
[2022-12-01 04:35] LABS: ALT (SGPT) 23 U/L (8-55); AST (SGOT) 19 U/L (5-34); Albumin 3.7 g/dL (3.5-5.0); Alkaline Phosphatase 70 U/L (40-110); Anion Gap 11 mmol/L (10-20); BUN (Urea Nitrogen) 10 mg/dL (7.0-18.7); Bilirubin, Total 0.3 mg/dL (0.2-1.2); Calc. Creatinine Clearance 0 mL/min (70-130); Calcium 8.6 mg/dL (7.8-10.44); Carbon Dioxide 23 mmol/L (22-29); Chloride 108 mmol/L (98-107); Estimated GFR 113; Globulin 3.7 g/dL (2.4-3.5); Glucose 139 mg/dL (70-105); Potassium 3.9 mmol/L (3.5-5.1); Protein, Total 7.4 g/dL (6.0-8.3); Sodium 138 mmol/L (136-145)
[2022-12-01 04:52] LABS: Bilirubin Negative (Negative); Blood, Urine Negative (Negative); Clarity Clear (Clear); Glucose, Urine (Dipstick) Normal (Negative); Ketone, Urine Negative (Negative); Leukocyte Negative Leu/uL (Negative); Nitrite Negative (Negative); Protein, Urine (Dipstick) Negative (Neg-Trace); Specific Gravity, Urine 1.034 (1.002-1.036); Urobilinogen Normal mg/dL (Less than 2)
[2022-12-01] MEDS ORDERED: Iopamidol-370 76% 500 ML 1 ML ONE (08:46)
== END 2022-12-01 06:21 | disposition home or self-care (01) ==
LOC: ERS 02:38
DX: M54.6 Pain in thoracic spine (principal); R06.02 Shortness of breath; E66.01 Morbid (severe) obesity due to excess calories; E78.00 Pure hypercholesterolemia, unspecified; I11.0 Hypertensive heart disease with heart failure; I50.9 Heart failure, unspecified; F17.290 Nicotine dependence, other tobacco product, uncomplicated; Z79.84 Long term (current) use of oral hypoglycemic drugs; Z79.899 Other long term (current) drug therapy
CPT/HCPCS: 71045; 71275; 80053; 81003; 83605; 83735; 83880; 84484; 85025; 85379; 87040; 87086; 93005; 96365; 96367; 96374; 96375; J0456; J0696; J1885; J2270; J7030; Q9967

== ENCOUNTER 2022-12-05 16:26 | Emergency (ER) | payer OTHER ==
[2022-12-05 17:01] LABS: #Basophils 0.1 thou/uL (0.0-0.2); #Eosinphils 0.3 thou/uL (0.0-0.7); #Lymphocytes 2.7 thou/uL (1.20-3.40); #Monocytes 0.7 thou/uL (0.11-0.59); #Neutrophils 5.4 thou/uL (1.40-6.50); %Basophils 0.9 % (0.0-1.0); %Eosinophils 3.1 % (0.0-10.0); %Lymphocytes 29.7 % (21.0-51.0); %Monocytes 7.4 % (0.0-10.0); %Neutrophils 58.9 % (42.0-75.0); Hemoglobin 13.2 g/dL (12.0-16.0); Mean Corpuscular HGB CONC 32.8 g/dL (32.0-36.0); Mean Corpuscular Hemoglobin 29.8 pg (27.0-31.0); Mean Corpuscular Volume 90.6 fl (78.0-98.0); Platelet Count 311 10x3/uL (130-400); RBC Distribution Width 13.9 % (11.5-14.5); Red Blood Cell (RBC) Count 4.44 mill/uL (4.20-5.40); White Blood Cell (WBC) Count 9.2 10x3/uL (4.8-10.8)
[2022-12-05 17:26] LABS: ALT (SGPT) 26 U/L (8-55); AST (SGOT) 22 U/L (5-34); Albumin 3.8 g/dL (3.5-5.0); Alkaline Phosphatase 61 U/L (40-110); Anion Gap 13 mmol/L (10-20); BUN (Urea Nitrogen) 14 mg/dL (7.0-18.7); Bilirubin, Total 0.2 mg/dL (0.2-1.2); Calc. Creatinine Clearance 0 mL/min (70-130); Calcium 9.4 mg/dL (7.8-10.44); Carbon Dioxide 24 mmol/L (22-29); Chloride 107 mmol/L (98-107); Estimated GFR 109; Globulin 3.8 g/dL (2.4-3.5); Glucose 91 mg/dL (70-105); Potassium 3.8 mmol/L (3.5-5.1); Protein, Total 7.6 g/dL (6.0-8.3); Sodium 140 mmol/L (136-145)
== END 2022-12-05 19:27 | disposition home or self-care (01) ==
LOC: ERS 16:26
DX: R07.89 Other chest pain (principal); E78.00 Pure hypercholesterolemia, unspecified; I11.0 Hypertensive heart disease with heart failure; I50.9 Heart failure, unspecified; E66.9 Obesity, unspecified; F17.290 Nicotine dependence, other tobacco product, uncomplicated; Z79.84 Long term (current) use of oral hypoglycemic drugs; Z79.899 Other long term (current) drug therapy
CPT/HCPCS: 71045; 80053; 82550; 83690; 84484; 85025; 93005

== ENCOUNTER 2022-12-26 23:24 | Observation (INO) | payer OTHER ==
[2022-12-26 23:56] LABS: Bilirubin Negative (Negative); Blood, Urine Negative (Negative); Clarity Clear (Clear); Glucose, Urine (Dipstick) Normal (Negative); Ketone, Urine Negative (Negative); Leukocyte Negative Leu/uL (Negative); Nitrite Negative (Negative); Protein, Urine (Dipstick) Negative (Neg-Trace); Specific Gravity, Urine 1.015 (1.002-1.036); Urobilinogen Normal mg/dL (Less than 2); pH, Urine 6.5 (5.0-9.0)
[2022-12-27] MEDS ORDERED: Metoclopramide HCl 10 MG/2 ML VIAL ONE (00:09)
[2022-12-27] MEDS ORDERED: diphenhydrAMINE 50 MG/ML VIAL ONE (00:09)
[2022-12-27] MEDS ORDERED: Ketorolac Tromethamine 30 MG/ML VIAL ONE (02:40)
[2022-12-27] MEDS ORDERED: Ondansetron ODT 4 MG TAB PO PRN (02:51)
[2022-12-27] MEDS ORDERED: Acetaminophen 325 MG TAB PO PRN (02:51)
[2022-12-27 03:18] LABS: #Basophils 0.1 thou/uL (0.0-0.2); #Eosinphils 0.2 thou/uL (0.0-0.7); #Lymphocytes 2.4 thou/uL (1.20-3.40); #Monocytes 0.4 thou/uL (0.11-0.59); #Neutrophils 3.4 thou/uL (1.40-6.50); %Basophils 0.8 % (0.0-1.0); %Monocytes 6.6 % (0.0-10.0); %Neutrophils 52.6 % (42.0-75.0); Hemoglobin 13.4 g/dL (12.0-16.0); Mean Corpuscular HGB CONC 33.8 g/dL (32.0-36.0); Mean Corpuscular Hemoglobin 30.5 pg (27.0-31.0); Mean Corpuscular Volume 90.3 fl (78.0-98.0); Mean Platelet Volume 8.8 fL (7.4-10.4); Platelet Count 295 10x3/uL (130-400); RBC Distribution Width 13.7 % (11.5-14.5); Red Blood Cell (RBC) Count 4.39 mill/uL (4.20-5.40); White Blood Cell (WBC) Count 6.5 10x3/uL (4.8-10.8)
[2022-12-27 03:42] LABS: ALT (SGPT) 23 U/L (8-55); AST (SGOT) 17 U/L (5-34); Albumin 3.9 g/dL (3.5-5.0); Alkaline Phosphatase 57 U/L (40-110); Anion Gap 13 mmol/L (10-20); BUN (Urea Nitrogen) 12 mg/dL (7.0-18.7); Bilirubin, Total 0.2 mg/dL (0.2-1.2); Calc. Creatinine Clearance 360 mL/min (70-130); Calcium 9.2 mg/dL (7.8-10.44); Carbon Dioxide 23 mmol/L (22-29); Chloride 104 mmol/L (98-107); Estimated GFR 114; Globulin 3.5 g/dL (2.4-3.5); Glucose 99 mg/dL (70-105); Potassium 3.8 mmol/L (3.5-5.1); Protein, Total 7.4 g/dL (6.0-8.3); Sodium 136 mmol/L (136-145)
[2022-12-27] MEDS ORDERED: Prochlorperazine Edisylate 10 MG in Sodium Chloride 0.9% 50 ML IVPB SCH (04:30)
[2022-12-27] MEDS ORDERED: metFORMIN 500 MG TAB PO SCH (08:00)
[2022-12-27] MEDS ORDERED: Amlodipine 5 MG TAB PO SCH (09:00)
[2022-12-27] MEDS ORDERED: Magnesium 2 GM/50 ML(in water) 2 GM in Premix Bag 1 BAG IVPB SCH (09:00)
[2022-12-27] MEDS ORDERED: Acetaminophen 500 MG TAB PO SCH ×2 (09:00→17:15)
[2022-12-27] MEDS ORDERED: Aripiprazole 10 MG TAB PO SCH (09:00)
[2022-12-27] MEDS ORDERED: PARoxetine 20 MG TAB PO SCH (09:00)
[2022-12-27] MEDS ORDERED: Gabapentin 300 MG CAP PO SCH (09:00)
[2022-12-27] MEDS ORDERED: Amlodipine 5 MG TAB ONE (09:21)
[2022-12-27] MEDS ORDERED: Magnesium 2 GM/50 ML BAG (IN WATER) ONE (09:21)
[2022-12-27] MEDS ORDERED: Acetaminophen 500 MG TAB ONE (09:21)
[2022-12-27] MEDS ORDERED: Valproate Sodium 500 MG in Sodium Chloride 0.9% 100 ML IVPB SCH (16:30)
[2022-12-27 17:05] VITALS: BP 118/64; TEMP 97.8
[2022-12-27 17:11] VITALS: BMI 78.2
[2022-12-27] MEDS ORDERED: Ketorolac Tromethamine 30 MG/ML VIAL IVP SCH (17:15)
[2022-12-27] MEDS ORDERED: Famotidine 20 MG TAB PO SCH (21:00)
[2022-12-27] MEDS ORDERED: Atorvastatin Calcium 10 MG TAB PO SCH (21:00)
== END 2022-12-27 20:15 | disposition home or self-care (01) ==
LOC: ERS 23:24 → ERHOLD 12-27 02:50 → NEURO 12-27 15:07
PROVIDERS: ADMIT Family Medicine; ATTEND Family Medicine
PROC: 009U3ZX Drainage of Spinal Canal, Percutaneous Approach, Diagnostic (ICD-10-PCS; principal; 2022-12-27)
DX: G43.909 Migraine, unspecified, not intractable, without status migrainosus (principal); R73.03 Prediabetes; E78.00 Pure hypercholesterolemia, unspecified; I11.0 Hypertensive heart disease with heart failure; I50.9 Heart failure, unspecified; E66.01 Morbid (severe) obesity due to excess calories; Z68.45 Body mass index [BMI] 70 or greater, adult; Z87.891 Personal history of nicotine dependence; Z79.84 Long term (current) use of oral hypoglycemic drugs; Z79.899 Other long term (current) drug therapy; Z88.8 Allergy status to other drugs, medicaments and biological substances
CPT/HCPCS: 36415; 62270; 70450; 80053; 81003; 85025; 93005; 93010; 96365; 96375; 96376; G0378; J0780; J1200; J1885; J2765; J3475; J3490

== ENCOUNTER 2022-12-28 13:51 | Emergency (ER) | payer OTHER ==
[2022-12-28] MEDS ORDERED: HYDROcodone/Acetaminophen 10/325 mg Tablet ONE (14:32)
== END 2022-12-28 14:26 | disposition home or self-care (01) ==
LOC: ERS 13:51
DX: K59.00 Constipation, unspecified (principal); M54.50 Low back pain, unspecified; E78.00 Pure hypercholesterolemia, unspecified; I10 Essential (primary) hypertension; E66.9 Obesity, unspecified; F17.290 Nicotine dependence, other tobacco product, uncomplicated
CPT/HCPCS: 99283

== ENCOUNTER 2023-01-11 22:34 | Emergency (ER) | payer OTHER ==
[2023-01-11 23:23] LABS: Amphetamine Not Detected (NotDetected); Barbiturates Screen Detected (NotDetected); Benzodiazepine Screen Not Detected (NotDetected); Cocaine Metabolite Screen Not Detected (NotDetected); Methadone Not Detected (NotDetected); Methamphetamine Not Detected (NotDetected); Opiate Screen Not Detected (NotDetected); Oxycodone Screen Not Detected (NotDetected); Phencyclidine (PCP) Not Detected (NotDetected); THC/Cannabinoid Screen Not Detected (NotDetected); Tricyclic Screen Not Detected (NotDetected)
[2023-01-11 23:53] LABS: #Basophils 0.1 thou/uL (0.0-0.2); #Eosinphils 0.2 thou/uL (0.0-0.7); #Lymphocytes 2.6 thou/uL (1.20-3.40); #Monocytes 0.7 thou/uL (0.11-0.59); #Neutrophils 4.7 thou/uL (1.40-6.50); %Basophils 0.8 % (0.0-1.0); %Eosinophils 2.2 % (0.0-10.0); %Lymphocytes 31.3 % (21.0-51.0); %Monocytes 8.6 % (0.0-10.0); Hemoglobin 13.8 g/dL (12.0-16.0); Mean Corpuscular HGB CONC 35.2 g/dL (32.0-36.0); Mean Corpuscular Hemoglobin 31.8 pg (27.0-31.0); Mean Corpuscular Volume 90.5 fl (78.0-98.0); Mean Platelet Volume 8.5 fL (7.4-10.4); Platelet Count 284 10x3/uL (130-400); RBC Distribution Width 13.9 % (11.5-14.5); Red Blood Cell (RBC) Count 4.35 mill/uL (4.20-5.40); White Blood Cell (WBC) Count 8.2 10x3/uL (4.8-10.8)
[2023-01-12 00:06] LABS: BHCG - Serum Negative (NEGATIVE); Pregs Control Background? CLEAR/WHITE (CLR/WHITE); Pregs Control Bar Appear? YES (CONTROL BAR)
[2023-01-12 00:08] LABS: Acetaminophen Less than 10.0 mcg/mL (10.0-30.0); Alcohol Less than 10 mg/dL (Less than 10); Salicylate Less than 8.0 mg/dL (15.0-30.0)
[2023-01-12 00:09] LABS: ALT (SGPT) 24 U/L (8-55); AST (SGOT) 21 U/L (5-34); Albumin 3.9 g/dL (3.5-5.0); Alkaline Phosphatase 58 U/L (40-110); Anion Gap 15 mmol/L (10-20); BUN (Urea Nitrogen) 17 mg/dL (7.0-18.7); Bilirubin, Total 0.2 mg/dL (0.2-1.2); Calc. Creatinine Clearance 0 mL/min (70-130); Calcium 9.9 mg/dL (7.8-10.44); Carbon Dioxide 21 mmol/L (22-29); Chloride 105 mmol/L (98-107); Estimated GFR 105; Globulin 3.5 g/dL (2.4-3.5); Glucose 122 mg/dL (70-105); Potassium 4.3 mmol/L (3.5-5.1); Protein, Total 7.4 g/dL (6.0-8.3); Sodium 137 mmol/L (136-145)
[2023-01-12] MEDS ORDERED: Acetaminophen 500 MG TAB ONE (00:52)
[2023-01-12] MEDS ORDERED: Famotidine 20 MG TAB PO SCH ×2 (09:45→21:00)
[2023-01-12] MEDS ORDERED: Aripiprazole 15 MG TAB PO SCH (09:45)
[2023-01-12] MEDS ORDERED: hydrOXYzine 25 MG TAB PO SCH ×2 (10:00→15:00)
[2023-01-12] MEDS ORDERED: Gabapentin 300 MG CAP PO SCH ×2 (10:00→21:00)
[2023-01-12] MEDS ORDERED: metFORMIN 500 MG TAB PO SCH (10:00)
[2023-01-12] MEDS ORDERED: PARoxetine 20 MG TAB PO SCH (10:00)
[2023-01-12] MEDS ORDERED: Famotidine 20 MG TAB ONE (10:52)
[2023-01-12] MEDS ORDERED: hydrOXYzine 25 MG TAB ONE (10:52)
[2023-01-12] MEDS ORDERED: Lisinopril 20 MG TAB PO SCH (21:00)
[2023-01-12] MEDS ORDERED: Mirtazapine 15 MG TAB PO SCH (21:00)
[2023-01-12] MEDS ORDERED: Atorvastatin Calcium 10 MG TAB PO SCH (21:00)
[2023-01-13] MEDS ORDERED: metFORMIN 500 MG TAB PO SCH (08:00)
[2023-01-13] MEDS ORDERED: Aripiprazole 15 MG TAB PO SCH (09:00)
[2023-01-13] MEDS ORDERED: PARoxetine 20 MG TAB PO SCH (09:00)
== END 2023-01-12 11:32 | disposition home or self-care (01) ==
LOC: ERS 22:34
DX: R45.851 Suicidal ideations (principal); F32.A Depression, unspecified; E78.00 Pure hypercholesterolemia, unspecified; I11.0 Hypertensive heart disease with heart failure; I50.9 Heart failure, unspecified; E66.9 Obesity, unspecified; E11.9 Type 2 diabetes mellitus without complications; Z79.84 Long term (current) use of oral hypoglycemic drugs; Z79.899 Other long term (current) drug therapy
CPT/HCPCS: 36415; 80053; 80306; 80307; 84703; 85025; 93005

== ENCOUNTER 2023-01-12 14:51 | Emergency (ER) | payer OTHER ==
[2023-01-12 15:41] LABS: #Basophils 0.1 thou/uL (0.0-0.2); #Eosinphils 0.1 thou/uL (0.0-0.7); #Lymphocytes 2.9 thou/uL (1.20-3.40); #Monocytes 0.8 thou/uL (0.11-0.59); #Neutrophils 7.8 thou/uL (1.40-6.50); %Basophils 0.5 % (0.0-1.0); %Eosinophils 1.2 % (0.0-10.0); %Lymphocytes 24.9 % (21.0-51.0); %Monocytes 6.9 % (0.0-10.0); %Neutrophils 66.6 % (42.0-75.0); Hemoglobin 14.8 g/dL (12.0-16.0); Mean Corpuscular HGB CONC 35.4 g/dL (32.0-36.0); Mean Corpuscular Hemoglobin 31.7 pg (27.0-31.0); Mean Corpuscular Volume 89.4 fl (78.0-98.0); Mean Platelet Volume 8.3 fL (7.4-10.4); Platelet Count 334 10x3/uL (130-400); Red Blood Cell (RBC) Count 4.66 mill/uL (4.20-5.40); White Blood Cell (WBC) Count 11.6 10x3/uL (4.8-10.8)
[2023-01-12 16:01] LABS: Acetaminophen Less than 10.0 mcg/mL (10.0-30.0); Alcohol Less than 10 mg/dL (Less than 10); Salicylate Less than 8.0 mg/dL (15.0-30.0)
[2023-01-12 16:02] LABS: Anion Gap 16 mmol/L (10-20); BUN (Urea Nitrogen) 12 mg/dL (7.0-18.7); Calc. Creatinine Clearance 0 mL/min (70-130); Calcium 10.4 mg/dL (7.8-10.44); Carbon Dioxide 20 mmol/L (22-29); Chloride 104 mmol/L (98-107); Estimated GFR 107; Glucose 95 mg/dL (70-105); Potassium 4.2 mmol/L (3.5-5.1); Sodium 136 mmol/L (136-145)
[2023-01-13 01:54] LABS: Pregnancy Test - Urine (BHCG) Negative (Negative); Pregu Control Background? CLEAR/WHITE (CLR/WHITE); Pregu Control Bar Appear? YES (CONTROL BAR); Specific Gravity 1.019 (1.002-1.036)
[2023-01-13 02:03] LABS: Amphetamine Not Detected (NotDetected); Barbiturates Screen Detected (NotDetected); Benzodiazepine Screen Not Detected (NotDetected); Cocaine Metabolite Screen Not Detected (NotDetected); Methadone Not Detected (NotDetected); Methamphetamine Not Detected (NotDetected); Opiate Screen Not Detected (NotDetected); Oxycodone Screen Not Detected (NotDetected); Phencyclidine (PCP) Not Detected (NotDetected); THC/Cannabinoid Screen Not Detected (NotDetected); Tricyclic Screen Not Detected (NotDetected)
[2023-01-13 04:07] LABS: Bilirubin Negative (Negative); Blood, Urine Negative (Negative); Clarity Clear (Clear); Glucose, Urine (Dipstick) Normal (Negative); Ketone, Urine Negative (Negative); Leukocyte Negative Leu/uL (Negative); Nitrite Negative (Negative); Protein, Urine (Dipstick) Negative (Neg-Trace); Specific Gravity, Urine 1.021 (1.002-1.036); Urobilinogen Normal mg/dL (Less than 2); pH, Urine 5.5 (5.0-9.0)
[2023-01-13] MEDS ORDERED: Clotrimazole 1% Cream 15 GM TUBE TOP SCH (04:15)
[2023-01-13] MEDS ORDERED: Clotrimazole 1 % Cream 30 GM TUBE TOP SCH (04:15)
[2023-01-13] MEDS ORDERED: Famotidine 20 MG TAB ONE (05:59)
[2023-01-13] MEDS ORDERED: Lisinopril 10 MG TAB ONE (05:59)
[2023-01-13] MEDS ORDERED: metFORMIN 500 MG TAB PO SCH ×2 (06:00→08:00)
[2023-01-13] MEDS ORDERED: Aripiprazole 10 MG TAB PO SCH (06:00)
[2023-01-13] MEDS ORDERED: Gabapentin 300 MG CAP PO SCH (06:00)
[2023-01-13] MEDS ORDERED: PARoxetine 20 MG TAB PO SCH (06:30)
[2023-01-13] MEDS ORDERED: Lisinopril 20 MG TAB PO SCH (09:00)
[2023-01-13] MEDS ORDERED: Famotidine 20 MG TAB PO SCH (09:00)
[2023-01-13] MEDS ORDERED: Mirtazapine 15 MG TAB PO SCH (21:00)
== END 2023-01-12 18:34 | disposition home or self-care (01) ==
LOC: ERS 14:51
DX: R45.851 Suicidal ideations (principal); R46.89 Other symptoms and signs involving appearance and behavior; D72.829 Elevated white blood cell count, unspecified; I11.0 Hypertensive heart disease with heart failure; I50.9 Heart failure, unspecified; E78.00 Pure hypercholesterolemia, unspecified; E66.9 Obesity, unspecified; E11.9 Type 2 diabetes mellitus without complications; Z79.899 Other long term (current) drug therapy; Z79.84 Long term (current) use of oral hypoglycemic drugs
CPT/HCPCS: 36415; 80048; 80053; 80306; 80307; 81003; 81025; 84443; 84703; 85025; 93005; 99285

== ENCOUNTER 2023-02-04 23:54 | Emergency (ER) | payer OTHER ==
[2023-02-05 01:09] LABS: Bacteria/HPF None Seen HPF (None Seen); Bilirubin Negative (Negative); Blood, Urine Negative (Negative); Calcium Oxalate Crystals 3+ HPF (None Seen); Clarity Clear (Clear); Glucose, Urine (Dipstick) Normal (Negative); Ketone, Urine Negative (Negative); Leukocyte Negative Leu/uL (Negative); Nitrite Negative (Negative); Protein, Urine (Dipstick) 30 mg/dL (Neg-Trace); RBC/HPF 0-3 HPF (0-3); Squamous Epithelial 0-3 HPF (0-3); Urobilinogen Normal mg/dL (Less than 2); WBC/HPF 0-3 HPF (0-3)
[2023-02-05 01:10] LABS: Pregnancy Test - Urine (BHCG) Negative (Negative); Pregu Control Background? CLEAR/WHITE (CLR/WHITE); Pregu Control Bar Appear? YES (CONTROL BAR)
== END 2023-02-05 04:24 | disposition home or self-care (01) ==
LOC: ERS 23:54
DX: M54.50 Low back pain, unspecified (principal)
CPT/HCPCS: 81003; 81015; 81025; 87086; 99283

== ENCOUNTER 2023-04-04 04:55 | Emergency (ER) | payer OTHER ==
[2023-04-04 05:27] LABS: #Basophils 0.1 thou/uL (0.0-0.2); #Eosinphils 0.2 thou/uL (0.0-0.7); #Monocytes 0.8 thou/uL (0.11-0.59); #Neutrophils 6.8 thou/uL (1.40-6.50); %Basophils 0.5 % (0.0-1.0); %Eosinophils 2.2 % (0.0-10.0); %Lymphocytes 28.5 % (21.0-51.0); %Monocytes 7.2 % (0.0-10.0); %Neutrophils 61.2 % (42.0-75.0); Hemoglobin 13.2 g/dL (12.0-16.0); Mean Corpuscular HGB CONC 32.6 g/dL (32.0-36.0); Mean Corpuscular Hemoglobin 29.5 pg (27.0-31.0); Mean Corpuscular Volume 90.4 fl (78.0-98.0); Mean Platelet Volume 9.9 fL (7.4-10.4); Platelet Count 362 10x3/uL (130-400); Red Blood Cell (RBC) Count 4.48 mill/uL (4.20-5.40); White Blood Cell (WBC) Count 11.1 10x3/uL (4.8-10.8)
[2023-04-04 05:52] LABS: ALT (SGPT) 29 U/L (8-55); AST (SGOT) 19 U/L (5-34); Alkaline Phosphatase 90 U/L (40-110); Anion Gap 13 mmol/L (10-20); BUN (Urea Nitrogen) 14 mg/dL (7.0-18.7); Bilirubin, Total 0.3 mg/dL (0.2-1.2); Calc. Creatinine Clearance 0 mL/min (70-130); Calcium 9.7 mg/dL (7.8-10.44); Carbon Dioxide 28 mmol/L (22-29); Chloride 103 mmol/L (98-107); Estimated GFR 105; Globulin 3.8 g/dL (2.4-3.5); Glucose 94 mg/dL (70-105); Potassium 4.3 mmol/L (3.5-5.1); Protein, Total 7.8 g/dL (6.0-8.3); Sodium 140 mmol/L (136-145)
== END 2023-04-04 08:21 | disposition left against medical advice (07) ==
LOC: ERS 04:55
DX: R07.89 Other chest pain (principal); E66.01 Morbid (severe) obesity due to excess calories; I10 Essential (primary) hypertension; E78.5 Hyperlipidemia, unspecified
CPT/HCPCS: 71045; 80053; 84484; 85025; 93005

== ENCOUNTER 2023-05-08 22:56 | Emergency (ER) | payer OTHER | END 2023-05-09 00:09 | disposition home or self-care (01) | LOC: ERS 22:56 | DX: R51.9 Headache, unspecified (principal); I10 Essential (primary) hypertension; E78.5 Hyperlipidemia, unspecified | CPT/HCPCS: 99284 ==

== ENCOUNTER 2023-05-17 21:10 | Emergency (ER) | payer OTHER ==
[~2023-05-17 21:10] MED LIST changes: -Iopamidol-370 76% 500 ML 1 ML ONE; +Iopamidol-370 76% 500 ML MDV (1 ML CHARGE) ONE
[2023-05-17 21:54] LABS: #Basophils 0.1 thou/uL (0.0-0.2); #Eosinphils 0.2 thou/uL (0.0-0.7); #Monocytes 0.7 thou/uL (0.11-0.59); #Neutrophils 6.4 thou/uL (1.40-6.50); %Basophils 0.6 % (0.0-1.0); %Eosinophils 1.8 % (0.0-10.0); %Lymphocytes 27.8 % (21.0-51.0); %Monocytes 7.2 % (0.0-10.0); %Neutrophils 62.2 % (42.0-75.0); Hematocrit 45.5 % (36.0-47.0); Mean Corpuscular Hemoglobin 29.7 pg (27.0-31.0); Mean Corpuscular Volume 90.1 fl (78.0-98.0); Mean Platelet Volume 10.3 fL (7.4-10.4); Platelet Count 345 10x3/uL (130-400); RBC Distribution Width 13.9 % (11.5-14.5); Red Blood Cell (RBC) Count 5.05 mill/uL (4.20-5.40); White Blood Cell (WBC) Count 10.3 10x3/uL (4.8-10.8)
[2023-05-17 22:08] LABS: BHCG - Serum Negative (NEGATIVE); Pregs Control Background? CLEAR/WHITE (CLR/WHITE); Pregs Control Bar Appear? YES (CONTROL BAR)
[2023-05-17 22:16] LABS: ALT (SGPT) 20 U/L (8-55); AST (SGOT) 17 U/L (5-34); Albumin 4.2 g/dL (3.5-5.0); Alkaline Phosphatase 73 U/L (40-110); Anion Gap 12 mmol/L (10-20); BUN (Urea Nitrogen) 13 mg/dL (7.0-18.7); Bilirubin, Total 0.3 mg/dL (0.2-1.2); Calc. Creatinine Clearance 0 mL/min (70-130); Calcium 9.4 mg/dL (7.8-10.44); Carbon Dioxide 21 mmol/L (22-29); Chloride 107 mmol/L (98-107); Estimated GFR 111; Glucose 98 mg/dL (70-105); Lipase 68 U/L (8-78); Magnesium 1.9 mg/dL (1.6-2.6); Protein, Total 8.2 g/dL (6.0-8.3); Sodium 136 mmol/L (136-145)
[2023-05-17 22:18] LABS: Troponin I Less than 0.010 ng/mL (< 0.028)
[2023-05-17] MEDS ORDERED: Ketorolac Tromethamine 30 MG/ML VIAL ONE (22:50)
[2023-05-17] MEDS ORDERED: Morphine 4 MG/ML VIAL ONE (22:50)
[2023-05-17] MEDS ORDERED: Acetaminophen 500 MG TAB ONE (23:53)
[2023-05-18 01:04] LABS: Troponin I Less than 0.010 ng/mL (< 0.028)
== END 2023-05-18 02:02 | disposition home or self-care (01) ==
LOC: ERS 21:10
DX: K76.0 Fatty (change of) liver, not elsewhere classified (principal); N83.8 Other noninflammatory disorders of ovary, fallopian tube and broad ligament; I10 Essential (primary) hypertension; E78.5 Hyperlipidemia, unspecified
CPT/HCPCS: 36415; 71045; 74177; 80053; 83690; 83735; 83880; 84484; 84703; 85025; 85379; 93005; 96374; 96375; J1885; J2270; Q9967

== ENCOUNTER 2023-05-19 19:30 | Outpatient (CLI) | payer OTHER | END 2023-05-19 19:31 | disposition home or self-care (01) | LOC: SLEEPLAB 19:30 | PROVIDERS: ATTEND Student in an Organized Health Care Education/Training Program | DX: G47.33 Obstructive sleep apnea (adult) (pediatric) (principal); R51.9 Headache, unspecified; E66.9 Obesity, unspecified; I10 Essential (primary) hypertension; K21.9 Gastro-esophageal reflux disease without esophagitis; F41.9 Anxiety disorder, unspecified; R06.83 Snoring; G47.00 Insomnia, unspecified; R35.1 Nocturia; F32.A Depression, unspecified; R09.89 Other specified symptoms and signs involving the circulatory and respiratory systems; G31.84 Mild cognitive impairment of uncertain or unknown etiology | CPT/HCPCS: 95811 ==

== ENCOUNTER 2023-06-01 03:04 | Emergency (ER) | payer OTHER ==
[2023-06-01 04:06] LABS: #Basophils 0.1 thou/uL (0.0-0.2); #Eosinphils 0.2 thou/uL (0.0-0.7); #Monocytes 0.9 thou/uL (0.11-0.59); #Neutrophils 9.1 thou/uL (1.40-6.50); %Basophils 0.5 % (0.0-1.0); %Eosinophils 1.1 % (0.0-10.0); %Lymphocytes 22.1 % (21.0-51.0); %Monocytes 6.8 % (0.0-10.0); Hematocrit 40.4 % (36.0-47.0); Hemoglobin 13.1 g/dL (12.0-16.0); Mean Corpuscular HGB CONC 32.4 g/dL (32.0-36.0); Mean Corpuscular Hemoglobin 29.9 pg (27.0-31.0); Mean Corpuscular Volume 92.2 fl (78.0-98.0); Mean Platelet Volume 10.5 fL (7.4-10.4); Platelet Count 349 10x3/uL (130-400); RBC Distribution Width 13.4 % (11.5-14.5); Red Blood Cell (RBC) Count 4.38 mill/uL (4.20-5.40); White Blood Cell (WBC) Count 13.2 10x3/uL (4.8-10.8)
[2023-06-01 04:31] LABS: ALT (SGPT) 26 U/L (8-55); AST (SGOT) 17 U/L (5-34); Albumin 3.6 g/dL (3.5-5.0); Alkaline Phosphatase 68 U/L (40-110); Anion Gap 16 mmol/L (10-20); BUN (Urea Nitrogen) 14 mg/dL (7.0-18.7); Bilirubin, Total 0.2 mg/dL (0.2-1.2); Calc. Creatinine Clearance 0 mL/min (70-130); Calcium 9.3 mg/dL (7.8-10.44); Carbon Dioxide 24 mmol/L (22-29); Chloride 103 mmol/L (98-107); Estimated GFR 114; Globulin 3.5 g/dL (2.4-3.5); Glucose 150 mg/dL (70-105); Protein, Total 7.1 g/dL (6.0-8.3); Sodium 139 mmol/L (136-145)
[2023-06-01 04:36] LABS: Troponin I Less than 0.010 ng/mL (< 0.028)
== END 2023-06-01 07:02 | disposition home or self-care (01) ==
LOC: ERS 03:04
DX: R07.89 Other chest pain (principal); I10 Essential (primary) hypertension; E78.5 Hyperlipidemia, unspecified; Z79.84 Long term (current) use of oral hypoglycemic drugs; Z79.899 Other long term (current) drug therapy
CPT/HCPCS: 36415; 71045; 80053; 84484; 85025; 93005

== ENCOUNTER 2023-07-12 07:26 | Emergency (ER) | payer OTHER ==
[2023-07-12 08:07] LABS: Bacteria/HPF None Seen HPF (None Seen); Bilirubin Negative (Negative); Blood, Urine Negative (Negative); CAUTI Indications for Culture Pelvic or flank pain; Clarity Clear (Clear); Glucose, Urine (Dipstick) 300 mg/dL (Negative); Ketone, Urine Negative (Negative); Leukocyte Negative Leu/uL (Negative); Nitrite Negative (Negative); Protein, Urine (Dipstick) Negative (Neg-Trace); RBC/HPF None Seen HPF (0-3); Squamous Epithelial 0-3 HPF (0-3); Urobilinogen Normal mg/dL (Less than 2); WBC/HPF None Seen HPF (0-3); pH, Urine 7.5 (5.0-9.0)
[2023-07-12 08:09] LABS: Urine Culture Reflex No No
[2023-07-12] MEDS ORDERED: Morphine 4 MG/ML VIAL ONE (08:22)
[2023-07-12] MEDS ORDERED: Ondansetron PF 4 MG/2 ML Vial ONE (08:22)
[2023-07-12 08:23] LABS: #Basophils 0.1 thou/uL (0.0-0.2); #Monocytes 0.7 thou/uL (0.11-0.59); #Neutrophils 8.4 thou/uL (1.40-6.50); %Basophils 0.5 % (0.0-1.0); %Eosinophils 0.4 % (0.0-10.0); %Lymphocytes 15.2 % (21.0-51.0); %Monocytes 6.5 % (0.0-10.0); %Neutrophils 76.5 % (42.0-75.0); Hematocrit 38.6 % (36.0-47.0); Hemoglobin 12.5 g/dL (12.0-16.0); Mean Corpuscular HGB CONC 32.4 g/dL (32.0-36.0); Mean Corpuscular Hemoglobin 29.9 pg (27.0-31.0); Mean Corpuscular Volume 92.3 fl (78.0-98.0); Mean Platelet Volume 10.2 fL (7.4-10.4); Platelet Count 292 10x3/uL (130-400); RBC Distribution Width 13.8 % (11.5-14.5); Red Blood Cell (RBC) Count 4.18 mill/uL (4.20-5.40)
[2023-07-12 08:40] LABS: BHCG - Serum Negative (NEGATIVE); Pregs Control Background? CLEAR/WHITE (CLR/WHITE); Pregs Control Bar Appear? YES (CONTROL BAR)
[2023-07-12 08:50] LABS: ALT (SGPT) 18 U/L (8-55); AST (SGOT) 14 U/L (5-34); Alkaline Phosphatase 72 U/L (40-110); Anion Gap 13 mmol/L (10-20); BUN (Urea Nitrogen) 12 mg/dL (7.0-18.7); Bilirubin, Total Less than 0.2 mg/dL (0.2-1.2); Calc. Creatinine Clearance 0 mL/min (70-130); Calcium 8.8 mg/dL (7.8-10.44); Carbon Dioxide 22 mmol/L (22-29); Chloride 109 mmol/L (98-107); Estimated GFR 114; Globulin 3.2 g/dL (2.4-3.5); Glucose 159 mg/dL (70-105); Lipase 24 U/L (8-78); Protein, Total 7.2 g/dL (6.0-8.3); Sodium 140 mmol/L (136-145)
[2023-07-12 08:52] LABS: Troponin I Less than 0.010 ng/mL (< 0.028)
== END 2023-07-12 11:58 | disposition home or self-care (01) ==
LOC: ERS 07:26
DX: R07.89 Other chest pain (principal); I10 Essential (primary) hypertension; E78.5 Hyperlipidemia, unspecified; Z79.899 Other long term (current) drug therapy; Z79.84 Long term (current) use of oral hypoglycemic drugs
CPT/HCPCS: 71045; 80053; 81001; 83690; 83880; 84484; 84703; 85025; 85379; 93005; 93970; 96361; 96374; 96375; J2270; J2405

== ENCOUNTER 2023-08-01 22:22 | Emergency (ER) | payer OTHER ==
[2023-08-02] MEDS ORDERED: Ondansetron PF 4 MG/2 ML Vial ONE (01:25)
[2023-08-02] MEDS ORDERED: Ketorolac Tromethamine 30 MG/ML VIAL ONE (01:25)
[2023-08-02 01:53] LABS: #Basophils 0.1 thou/uL (0.0-0.2); #Eosinphils 0.3 thou/uL (0.0-0.7); #Monocytes 0.8 thou/uL (0.11-0.59); #Neutrophils 6.3 thou/uL (1.40-6.50); %Basophils 0.7 % (0.0-1.0); %Eosinophils 2.8 % (0.0-10.0); %Monocytes 7.9 % (0.0-10.0); %Neutrophils 64.1 % (42.0-75.0); Hematocrit 38.8 % (36.0-47.0); Hemoglobin 12.7 g/dL (12.0-16.0); Mean Corpuscular HGB CONC 32.7 g/dL (32.0-36.0); Mean Corpuscular Hemoglobin 29.8 pg (27.0-31.0); Mean Corpuscular Volume 91.1 fl (78.0-98.0); Mean Platelet Volume 10.8 fL (7.4-10.4); Platelet Count 340 10x3/uL (130-400); RBC Distribution Width 14.1 % (11.5-14.5); Red Blood Cell (RBC) Count 4.26 mill/uL (4.20-5.40); White Blood Cell (WBC) Count 9.8 10x3/uL (4.8-10.8)
[2023-08-02 01:56] LABS: BHCG - Serum Negative (NEGATIVE); Pregs Control Background? CLEAR/WHITE (CLR/WHITE); Pregs Control Bar Appear? YES (CONTROL BAR)
[2023-08-02 02:17] LABS: ALT (SGPT) 22 U/L (8-55); AST (SGOT) 20 U/L (5-34); Alkaline Phosphatase 82 U/L (40-110); Anion Gap 16 mmol/L (10-20); BUN (Urea Nitrogen) 13 mg/dL (7.0-18.7); Bilirubin, Total 0.4 mg/dL (0.2-1.2); Calc. Creatinine Clearance 0 mL/min (70-130); Carbon Dioxide 26 mmol/L (22-29); Chloride 99 mmol/L (98-107); Estimated GFR 111; Globulin 3.3 g/dL (2.4-3.5); Glucose 111 mg/dL (70-105); Lipase 165 U/L (8-78); Potassium 3.7 mmol/L (3.5-5.1); Protein, Total 7.3 g/dL (6.0-8.3); Sodium 137 mmol/L (136-145)
== END 2023-08-02 05:28 | disposition home or self-care (01) ==
LOC: ERS 22:22
DX: L03.311 Cellulitis of abdominal wall (principal); I10 Essential (primary) hypertension; E78.5 Hyperlipidemia, unspecified
CPT/HCPCS: 36415; 80053; 83605; 83690; 84703; 85025; 86140; 87040; J1885; J2405

== ENCOUNTER 2023-08-02 16:52 | Emergency (ER) | payer OTHER ==
[2023-08-02] MEDS ORDERED: Ketorolac Tromethamine 30 MG/ML VIAL ONE (17:22)
[2023-08-02] MEDS ORDERED: Sulfameth/Trimethoprim DS 800-160mg TAB ONE (17:22)
== END 2023-08-02 18:33 | disposition home or self-care (01) ==
LOC: ERS 16:52
DX: L03.319 Cellulitis of trunk, unspecified (principal); I10 Essential (primary) hypertension; E78.5 Hyperlipidemia, unspecified; Z79.899 Other long term (current) drug therapy
CPT/HCPCS: 36415; 80053; 83605; 83690; 84703; 85025; 86140; 87040; 96361; 96372; 96374; 96375; 99283; J1885; J2405

== ENCOUNTER 2023-09-14 03:07 | Emergency (ER) | payer OTHER ==
[2023-09-14 05:26] LABS: #Basophils 0.1 thou/uL (0.0-0.2); #Eosinphils 0.2 thou/uL (0.0-0.7); #Neutrophils 8.2 thou/uL (1.40-6.50); %Basophils 0.4 % (0.0-1.0); %Lymphocytes 21.9 % (21.0-51.0); %Monocytes 7.9 % (0.0-10.0); %Neutrophils 67.4 % (42.0-75.0); Hematocrit 41.3 % (36.0-47.0); Hemoglobin 13.2 g/dL (12.0-16.0); Mean Corpuscular Volume 93.9 fl (78.0-98.0); Mean Platelet Volume 10.3 fL (7.4-10.4); Platelet Count 366 10x3/uL (130-400); White Blood Cell (WBC) Count 12.2 10x3/uL (4.8-10.8)
[2023-09-14 05:35] LABS: BHCG - Serum Negative (NEGATIVE); Pregs Control Background? CLEAR/WHITE (CLR/WHITE); Pregs Control Bar Appear? YES (CONTROL BAR)
[2023-09-14 05:52] LABS: ALT (SGPT) 32 U/L (8-55); AST (SGOT) 33 U/L (5-34); Alkaline Phosphatase 68 U/L (40-110); Anion Gap 15 mmol/L (10-20); BUN (Urea Nitrogen) 26 mg/dL (7.0-18.7); Bilirubin, Total 0.2 mg/dL (0.2-1.2); CK (CPK) 50 U/L (29-168); Calc. Creatinine Clearance 0 mL/min (70-130); Calcium 9.8 mg/dL (7.8-10.44); Carbon Dioxide 24 mmol/L (22-29); Chloride 103 mmol/L (98-107); Estimated GFR 63; Globulin 4.2 g/dL (2.4-3.5); Glucose 110 mg/dL (70-105); Potassium 4.1 mmol/L (3.5-5.1); Protein, Total 8.2 g/dL (6.0-8.3); Sodium 138 mmol/L (136-145)
[2023-09-14] MEDS ORDERED: Nystatin Powder 15 GM BOT TOP SCH (06:00)
== END 2023-09-14 07:17 | disposition home or self-care (01) ==
LOC: ERS 03:07
DX: B49 Unspecified mycosis (principal); I10 Essential (primary) hypertension
CPT/HCPCS: 36415; 80053; 82550; 83605; 84703; 85025; 87040; 99283

== ENCOUNTER 2023-11-02 15:19 | Observation (INO) | payer OTHER ==
[2023-11-02 16:06] LABS: #Eosinphils 0.2 thou/uL (0.0-0.7); #Monocytes 0.7 thou/uL (0.11-0.59); #Neutrophils 5.3 thou/uL (1.40-6.50); %Basophils 0.4 % (0.0-1.0); %Eosinophils 2.1 % (0.0-10.0); %Lymphocytes 24.9 % (21.0-51.0); %Monocytes 8.6 % (0.0-10.0); %Neutrophils 63.4 % (42.0-75.0); Hematocrit 37.9 % (36.0-47.0); Hemoglobin 12.4 g/dL (12.0-16.0); Mean Corpuscular HGB CONC 32.7 g/dL (32.0-36.0); Mean Corpuscular Hemoglobin 30.2 pg (27.0-31.0); Mean Corpuscular Volume 92.2 fl (78.0-98.0); Mean Platelet Volume 10.5 fL (7.4-10.4); Platelet Count 319 10x3/uL (130-400); RBC Distribution Width 13.9 % (11.5-14.5); Red Blood Cell (RBC) Count 4.11 mill/uL (4.20-5.40); White Blood Cell (WBC) Count 8.4 10x3/uL (4.8-10.8)
[2023-11-02] MEDS ORDERED: Sodium Chloride 0.9% 100 ML ONE (16:08)
[2023-11-02] MEDS ORDERED: Cefepime 2 GM VIAL ONE (16:08)
[2023-11-02 16:29] LABS: ALT (SGPT) 30 U/L (8-55); AST (SGOT) 33 U/L (5-34); Albumin 3.8 g/dL (3.5-5.0); Alkaline Phosphatase 70 U/L (40-110); Anion Gap 16 mmol/L (10-20); BUN (Urea Nitrogen) 17 mg/dL (7.0-18.7); Bilirubin, Total 0.2 mg/dL (0.2-1.2); Calc. Creatinine Clearance 0 mL/min (70-130); Calcium 9.9 mg/dL (7.8-10.44); Carbon Dioxide 26 mmol/L (22-29); Chloride 101 mmol/L (98-107); Estimated GFR 105; Globulin 4.1 g/dL (2.4-3.5); Glucose 100 mg/dL (70-105); Potassium 4.5 mmol/L (3.5-5.1); Protein, Total 7.9 g/dL (6.0-8.3); Sodium 138 mmol/L (136-145)
[2023-11-02] MEDS ORDERED: Vancomycin 1 GM/200 ML (FROZEN) BAG ONE (16:35)
[2023-11-02 17:05] LABS: Bacteria/HPF None Seen HPF (None Seen); Bilirubin Negative (Negative); Blood, Urine Negative (Negative); CAUTI Indications for Culture Alt mental st,lethar; Clarity Clear (Clear); Glucose, Urine (Dipstick) Normal (Negative); Ketone, Urine Negative (Negative); Leukocyte Negative Leu/uL (Negative); Nitrite Negative (Negative); Protein, Urine (Dipstick) Negative (Neg-Trace); RBC/HPF 0-3 HPF (0-3); Specific Gravity, Urine 1.014 (1.002-1.036); Squamous Epithelial 0-3 HPF (0-3); Urobilinogen Normal mg/dL (Less than 2); WBC/HPF 0-3 HPF (0-3); pH, Urine 6.5 (5.0-9.0)
[2023-11-02 17:06] LABS: Urine Culture Reflex No No
[2023-11-02] MEDS ORDERED: Morphine 4 MG/ML VIAL ONE (18:23)
[2023-11-02] MEDS ORDERED: Dextrose 50% Abboject 50 ML SYRINGE SLOW IVP PRN (18:47)
[2023-11-02] MEDS ORDERED: Dextrose 5% in Water 1,000 ML IV PRN (18:47)
[2023-11-02] MEDS ORDERED: HumaLOG 300 UNITS/3 ML VIAL SC PRN ×2 (18:47)
[2023-11-02] MEDS ORDERED: Glucagon 1 MG/ML KIT IM PRN (18:47)
[2023-11-02] MEDS ORDERED: Ondansetron PF 4 MG/2 ML Vial IVP PRN (19:26)
[2023-11-02 19:56] LABS: Lactic Acid 1.3 mmol/L (0.5-2.2)
[2023-11-02] MEDS: busPIRone HCl 10 MG TAB PO SCH (20:50)
[2023-11-02] MEDS: Gabapentin 300 MG CAP PO SCH (20:51)
[2023-11-02] MEDS ORDERED: Atorvastatin Calcium 10 MG TAB PO SCH (21:00)
[2023-11-02] MEDS ORDERED: busPIRone HCl 10 MG TAB PO SCH (21:00)
[2023-11-02 21:04] VITALS: BMI 84.3
[2023-11-02] MEDS: Vancomycin (BATCH) 2 GM in Premix 1 BAG IVPB SCH (22:40)
[2023-11-02] MEDS ORDERED: Nystatin Powder 15 GM BOT TOP PRN (23:20)
[2023-11-02] MEDS ORDERED: Morphine 4 MG/ML VIAL SLOW IVP SCH (23:45)
[2023-11-03 01:02] LABS: Hemoglobin A1c 6.1 % (4.0-6.0)
[2023-11-03] MEDS: Vancomycin (BATCH) 2 GM in Premix 1 BAG IVPB SCH ×2 (05:15→14:24)
[2023-11-03 05:45] LABS: #Eosinphils 0.2 thou/uL (0.0-0.7); #Neutrophils 5.2 thou/uL (1.40-6.50); %Basophils 0.5 % (0.0-1.0); %Eosinophils 2.6 % (0.0-10.0); %Lymphocytes 22.3 % (21.0-51.0); %Monocytes 11.5 % (0.0-10.0); %Neutrophils 62.5 % (42.0-75.0); Hematocrit 36.2 % (36.0-47.0); Hemoglobin 11.2 g/dL (12.0-16.0); Mean Corpuscular HGB CONC 30.9 g/dL (32.0-36.0); Mean Corpuscular Hemoglobin 29.3 pg (27.0-31.0); Mean Corpuscular Volume 94.8 fl (78.0-98.0); Mean Platelet Volume 10.7 fL (7.4-10.4); Platelet Count 308 10x3/uL (130-400); RBC Distribution Width 14.1 % (11.5-14.5); Red Blood Cell (RBC) Count 3.82 mill/uL (4.20-5.40); White Blood Cell (WBC) Count 8.4 10x3/uL (4.8-10.8)
[2023-11-03] MEDS ORDERED: Lisinopril 20 MG TAB PO SCH (09:00)
[2023-11-03] MEDS ORDERED: Venlafaxine 75 MG TAB PO SCH (09:00)
[2023-11-03] MEDS ORDERED: Vancomycin 1 GM in Sodium Chloride 0.9% 250 ML 250 ML IVPB SCH (09:00)
[2023-11-03] MEDS ORDERED: Aripiprazole 10 MG TAB PO SCH (09:00)
[2023-11-03] MEDS ORDERED: Enoxaparin 40 MG (0.4 mL) SYRINGE SC SCH (09:00)
[2023-11-03] MEDS: Gabapentin 300 MG CAP PO SCH (09:29)
[2023-11-03] MEDS: Enoxaparin 40 MG (0.4 mL) SYRINGE SC SCH ×2 (09:29→09:33)
[2023-11-03] MEDS: busPIRone HCl 10 MG TAB PO SCH (09:30)
[2023-11-03 11:55] VITALS: BP 125/69; TEMP 97.8
[2023-11-03] MEDS ORDERED: Enoxaparin 60 MG (0.6 mL) SYRINGE SC SCH (21:00)
[2023-11-09] MEDS ORDERED: Fluconazole 100 MG TAB PO SCH (09:00)
== END 2023-11-03 14:32 | disposition home or self-care (01) ==
LOC: ERS 15:19 → SJJU 18:22
PROVIDERS: ADMIT Student in an Organized Health Care Education/Training Program; ATTEND Student in an Organized Health Care Education/Training Program
DX: L03.311 Cellulitis of abdominal wall (principal); I10 Essential (primary) hypertension; E11.9 Type 2 diabetes mellitus without complications; F41.9 Anxiety disorder, unspecified; F32.A Depression, unspecified; E78.5 Hyperlipidemia, unspecified; E66.01 Morbid (severe) obesity due to excess calories; Z68.45 Body mass index [BMI] 70 or greater, adult; Z90.710 Acquired absence of both cervix and uterus; Z88.8 Allergy status to other drugs, medicaments and biological substances; Z79.84 Long term (current) use of oral hypoglycemic drugs; Z79.899 Other long term (current) drug therapy
CPT/HCPCS: 36415; 36416; 71045; 80053; 81001; 83036; 83605; 85025; 87040; 93005; 96365; 96366; 96367; 96375; 96376; 97139; G0378; J0692; J1650; J2270; J3370; J3370-JW; J3490

== ENCOUNTER 2023-11-14 01:39 | Emergency (ER) | payer OTHER ==
[2023-11-14] MEDS ORDERED: Sodium Chloride 0.9% 100 ML ONE (02:37)
[2023-11-14] MEDS ORDERED: cefTRIAXone (ROCEPHIN) 2 GM VIAL ONE (02:37)
[2023-11-14 02:45] LABS: #Basophils 0.1 thou/uL (0.0-0.2); #Eosinphils 0.2 thou/uL (0.0-0.7); #Monocytes 0.9 thou/uL (0.11-0.59); #Neutrophils 6.5 thou/uL (1.40-6.50); %Basophils 0.5 % (0.0-1.0); %Eosinophils 2.3 % (0.0-10.0); %Monocytes 8.6 % (0.0-10.0); %Neutrophils 65.1 % (42.0-75.0); Hematocrit 39.1 % (36.0-47.0); Hemoglobin 12.8 g/dL (12.0-16.0); Mean Corpuscular HGB CONC 32.7 g/dL (32.0-36.0); Mean Corpuscular Hemoglobin 29.8 pg (27.0-31.0); Mean Corpuscular Volume 91.1 fl (78.0-98.0); Mean Platelet Volume 10.6 fL (7.4-10.4); Platelet Count 357 10x3/uL (130-400); RBC Distribution Width 14.2 % (11.5-14.5); Red Blood Cell (RBC) Count 4.29 mill/uL (4.20-5.40); White Blood Cell (WBC) Count 9.9 10x3/uL (4.8-10.8)
[2023-11-14 03:07] LABS: ALT (SGPT) 21 U/L (8-55); AST (SGOT) 17 U/L (5-34); Albumin 3.9 g/dL (3.5-5.0); Alkaline Phosphatase 79 U/L (40-110); Anion Gap 14 mmol/L (10-20); BUN (Urea Nitrogen) 13 mg/dL (7.0-18.7); Bilirubin, Total 0.3 mg/dL (0.2-1.2); Calc. Creatinine Clearance 0 mL/min (70-130); Calcium 9.9 mg/dL (7.8-10.44); Carbon Dioxide 24 mmol/L (22-29); Chloride 103 mmol/L (98-107); Estimated GFR 105; Globulin 4.2 g/dL (2.4-3.5); Glucose 125 mg/dL (70-105); Potassium 3.9 mmol/L (3.5-5.1); Protein, Total 8.1 g/dL (6.0-8.3); Sodium 137 mmol/L (136-145)
== END 2023-11-14 04:43 | disposition home or self-care (01) ==
LOC: ERS 01:39
DX: L03.116 Cellulitis of left lower limb (principal); R50.9 Fever, unspecified; R53.81 Other malaise; I10 Essential (primary) hypertension; E78.5 Hyperlipidemia, unspecified; Z79.899 Other long term (current) drug therapy
CPT/HCPCS: 80053; 83605; 85025; 87040; 93005; 96365; J0696; J3490

== ENCOUNTER 2023-11-16 01:40 | Emergency (ER) | payer OTHER ==
[2023-11-16] MEDS ORDERED: Diazepam 5 MG TAB ONE (02:58)
[2023-11-16] MEDS ORDERED: Orphenadrine Citrate 60 MG/2 ML VIAL ONE (02:58)
== END 2023-11-16 04:15 | disposition home or self-care (01) ==
LOC: ERS 01:40
DX: M54.50 Low back pain, unspecified (principal); I10 Essential (primary) hypertension; E78.5 Hyperlipidemia, unspecified; Z79.899 Other long term (current) drug therapy; Z79.84 Long term (current) use of oral hypoglycemic drugs
CPT/HCPCS: 96372; 99283; J2360

== ENCOUNTER 2023-11-26 02:23 | Emergency (ER) | payer OTHER ==
[2023-11-26] MEDS ORDERED: Nitroglycerin 2% Ointment 1 INCH/1 GM Packet ONE (03:09)
[2023-11-26] MEDS ORDERED: Aspirin Chewable 81 MG TAB ONE (03:10)
[2023-11-26 03:23] LABS: #Eosinphils 0.2 thou/uL (0.0-0.7); #Monocytes 0.7 thou/uL (0.11-0.59); #Neutrophils 4.1 thou/uL (1.40-6.50); %Basophils 0.5 % (0.0-1.0); %Eosinophils 2.7 % (0.0-10.0); %Lymphocytes 31.3 % (21.0-51.0); %Monocytes 9.8 % (0.0-10.0); %Neutrophils 55.2 % (42.0-75.0); Hematocrit 39.6 % (36.0-47.0); Hemoglobin 12.6 g/dL (12.0-16.0); Mean Corpuscular HGB CONC 31.8 g/dL (32.0-36.0); Mean Corpuscular Hemoglobin 29.9 pg (27.0-31.0); Mean Corpuscular Volume 93.8 fl (78.0-98.0); Mean Platelet Volume 10.6 fL (7.4-10.4); Platelet Count 282 10x3/uL (130-400); RBC Distribution Width 14.3 % (11.5-14.5); Red Blood Cell (RBC) Count 4.22 mill/uL (4.20-5.40); White Blood Cell (WBC) Count 7.4 10x3/uL (4.8-10.8)
[2023-11-26 03:42] LABS: BHCG - Serum Negative (NEGATIVE); Pregs Control Background? CLEAR/WHITE (CLR/WHITE); Pregs Control Bar Appear? YES (CONTROL BAR)
[2023-11-26 03:44] LABS: ALT (SGPT) 30 U/L (8-55); AST (SGOT) 29 U/L (5-34); Albumin 3.7 g/dL (3.5-5.0); Alkaline Phosphatase 67 U/L (40-110); Anion Gap 14 mmol/L (10-20); BUN (Urea Nitrogen) 15 mg/dL (7.0-18.7); Bilirubin, Total 0.2 mg/dL (0.2-1.2); Calc. Creatinine Clearance 0 mL/min (70-130); Calcium 9.4 mg/dL (7.8-10.44); Carbon Dioxide 21 mmol/L (22-29); Chloride 108 mmol/L (98-107); Estimated GFR 98; Glucose 210 mg/dL (70-105); Lipase 36 U/L (8-78); Magnesium 1.7 mg/dL (1.6-2.6); Potassium 4.2 mmol/L (3.5-5.1); Protein, Total 7.7 g/dL (6.0-8.3); Sodium 139 mmol/L (136-145)
[2023-11-26 04:01] LABS: Troponin I Less than 0.010 ng/mL (< 0.028)
== END 2023-11-26 04:50 | disposition home or self-care (01) ==
LOC: ERS 02:23
DX: I20.9 Angina pectoris, unspecified (principal); G51.0 Bell's palsy; R29.700 NIHSS score 0; I10 Essential (primary) hypertension; E78.5 Hyperlipidemia, unspecified; Z79.899 Other long term (current) drug therapy
CPT/HCPCS: 71045; 80053; 83690; 83735; 83880; 84484; 84703; 85025; 93005

== ENCOUNTER 2023-12-05 01:35 | Emergency (ER) | payer OTHER | END 2023-12-05 02:03 | disposition home or self-care (01) | LOC: ERS 01:35 | DX: K02.9 Dental caries, unspecified (principal); K04.7 Periapical abscess without sinus; I10 Essential (primary) hypertension; E78.5 Hyperlipidemia, unspecified; Z79.899 Other long term (current) drug therapy | CPT/HCPCS: 99282 ==

== ENCOUNTER 2023-12-27 20:42 | Emergency (ER) | payer OTHER ==
[2023-12-27 21:13] LABS: #Basophils 0.05 10x3/uL (0.0-0.2); %Basophils 0.5 % (0.0-1.0); %Eosinophils 1.7 % (0.0-10.0); %Lymphocytes 19.9 % (21.0-51.0); %Monocytes 8.1 % (0.0-10.0); %Neutrophils 69.2 % (42.0-75.0); Hematocrit 38.4 % (36.0-47.0); Hemoglobin 12.3 g/dL (12.0-16.0); Mean Corpuscular Hemoglobin 29.4 pg (27.0-31.0); Mean Corpuscular Volume 91.6 fL (78.0-98.0); Mean Platelet Volume 10.3 fL (7.4-10.4); Platelet Count 289 10x3/uL (130-400); RBC Distribution Width 14.7 % (11.5-14.5); Red Blood Cell (RBC) Count 4.19 mill/uL (4.20-5.40)
[2023-12-27 21:30] LABS: ALT (SGPT) 17 U/L (8-55); AST (SGOT) 14 U/L (5-34); Albumin 3.5 g/dL (3.5-5.0); Alkaline Phosphatase 73 U/L (40-110); Anion Gap 15 mmol/L (10-20); BUN (Urea Nitrogen) 13 mg/dL (7.0-18.7); Bilirubin, Total 0.2 mg/dL (0.2-1.2); Calc. Creatinine Clearance 0 mL/min (70-130); Calcium 9.3 mg/dL (7.8-10.44); Carbon Dioxide 21 mmol/L (22-29); Chloride 105 mmol/L (98-107); Estimated GFR 103; Globulin 3.7 g/dL (2.4-3.5); Glucose 128 mg/dL (70-105); Potassium 4.3 mmol/L (3.5-5.1); Protein, Total 7.2 g/dL (6.0-8.3); Sodium 137 mmol/L (136-145)
[2023-12-27 21:41] LABS: BHCG - Serum Negative (NEGATIVE); Pregs Control Background? CLEAR/WHITE (CLR/WHITE); Pregs Control Bar Appear? YES (CONTROL BAR)
== END 2023-12-27 23:32 | disposition home or self-care (01) ==
LOC: ERS 20:42
DX: M79.3 Panniculitis, unspecified (principal); L30.4 Erythema intertrigo; I10 Essential (primary) hypertension; E78.5 Hyperlipidemia, unspecified; G43.909 Migraine, unspecified, not intractable, without status migrainosus
CPT/HCPCS: 36415; 80053; 83605; 84703; 85025; 86140

== ENCOUNTER 2024-02-08 01:33 | Emergency (ER) | payer OTHER | END 2024-02-08 05:58 | disposition home or self-care (01) | LOC: ERS 01:33 | DX: K64.4 Residual hemorrhoidal skin tags (principal); I10 Essential (primary) hypertension | CPT/HCPCS: 99283 ==

== ENCOUNTER 2024-02-21 00:58 | Emergency (ER) | payer OTHER ==
[2024-02-21 01:47] LABS: #Basophils 0.04 10x3/uL (0.0-0.2); %Basophils 0.5 % (0.0-1.0); %Lymphocytes 29.6 % (21.0-51.0); %Monocytes 10.3 % (0.0-10.0); %Neutrophils 57.2 % (42.0-75.0); Hemoglobin 12.2 g/dL (12.0-16.0); Mean Corpuscular HGB CONC 31.3 g/dL (32.0-36.0); Mean Corpuscular Hemoglobin 29.7 pg (27.0-31.0); Mean Corpuscular Volume 94.9 fL (78.0-98.0); Mean Platelet Volume 10.7 fL (7.4-10.4); Platelet Count 322 10x3/uL (130-400); RBC Distribution Width 14.7 % (11.5-14.5); Red Blood Cell (RBC) Count 4.11 mill/uL (4.20-5.40)
[2024-02-21 02:08] LABS: Troponin I Less than 0.010 ng/mL (< 0.028)
[2024-02-21 02:17] LABS: BHCG - Serum Negative (NEGATIVE); Pregs Control Background? CLEAR/WHITE (CLR/WHITE); Pregs Control Bar Appear? YES (CONTROL BAR)
[2024-02-21 02:25] LABS: ALT (SGPT) 20 U/L (8-55); AST (SGOT) 22 U/L (5-34); Albumin 3.2 g/dL (3.5-5.0); Alkaline Phosphatase 65 U/L (40-110); Anion Gap 18 mmol/L (10-20); BUN (Urea Nitrogen) 13 mg/dL (7.0-18.7); Bilirubin, Total 0.2 mg/dL (0.2-1.2); Calc. Creatinine Clearance 0 mL/min (70-130); Calcium 9.4 mg/dL (7.8-10.44); Carbon Dioxide 18 mmol/L (22-29); Chloride 107 mmol/L (98-107); Estimated GFR 103; Globulin 4.3 g/dL (2.4-3.5); Glucose 155 mg/dL (70-105); Potassium 4.3 mmol/L (3.5-5.1); Protein, Total 7.5 g/dL (6.0-8.3); Sodium 139 mmol/L (136-145)
[2024-02-21 02:29] LABS: Bacteria/HPF None Seen HPF (None Seen); Bilirubin Negative (Negative); Blood, Urine Negative (Negative); CAUTI Indications for Culture Dysuria,urgency,freq; Clarity Clear (Clear); Glucose, Urine (Dipstick) Normal (Negative); Ketone, Urine Negative (Negative); Leukocyte Negative Leu/uL (Negative); Nitrite Negative (Negative); Protein, Urine (Dipstick) Negative (Neg-Trace); RBC/HPF 0-3 HPF (0-3); Specific Gravity, Urine 1.024 (1.002-1.036); Squamous Epithelial 0-3 HPF (0-3); Urobilinogen Normal mg/dL (Less than 2); WBC/HPF 0-3 HPF (0-3); pH, Urine 6.5 (5.0-9.0)
[2024-02-21 02:31] LABS: Urine Culture Reflex No No
[2024-02-21] MEDS ORDERED: Ketorolac Tromethamine 30 MG (1 mL) VIAL ONE (02:50)
[2024-02-21] MEDS ORDERED: Morphine 4 MG/ML VIAL ONE (02:51)
[2024-02-21 02:57] LABS: INR-International Normal Ratio 0.9; Prothrombin Time 12.4 sec (12.0-14.7)
[2024-02-21 02:58] LABS: PTT 27.4 sec (22.9-36.1)
[2024-02-21] MEDS ORDERED: Cefepime 2 GM VIAL ONE (03:15)
[2024-02-21] MEDS ORDERED: Vancomycin 1 GM/200 ML (FROZEN) BAG ONE (05:05)
[2024-02-21 05:09] LABS: Lactic Acid 1.5 mmol/L (0.5-2.2)
== END 2024-02-21 06:56 | disposition home or self-care (01) ==
LOC: ERS 00:58
DX: L03.311 Cellulitis of abdominal wall (principal); I10 Essential (primary) hypertension; E78.5 Hyperlipidemia, unspecified; G43.909 Migraine, unspecified, not intractable, without status migrainosus; F41.9 Anxiety disorder, unspecified
CPT/HCPCS: 36415; 71045; 80053; 81001; 83605; 84484; 84702; 84703; 85025; 85610; 85730; 87040; 87077; 87086; 87149; 93005; 94760; 96365; 96366; 96367; J0692; J1885; J2270; J3370-JW

== ENCOUNTER 2024-03-20 16:57 | Emergency (ER) | payer OTHER ==
[2024-03-20] MEDS ORDERED: fentaNYL 50 mcg/mL 1 mL Vial ONE (18:04)
[2024-03-20] MEDS ORDERED: Ketorolac Tromethamine 30 MG (1 mL) VIAL ONE (18:05)
== END 2024-03-20 19:14 | disposition home or self-care (01) ==
LOC: ERS 16:57
DX: B02.9 Zoster without complications (principal); I10 Essential (primary) hypertension
CPT/HCPCS: 71045; 96372; 99283; J1885; J3010

== ENCOUNTER 2024-03-28 00:46 | Inpatient (IN) | payer OTHER ==
[2024-03-28 05:02] VITALS: BMI 85.0
[2024-03-29 18:01] VITALS: BMI 84.4
[2024-03-30 16:02] VITALS: BP 148/74; TEMP 98.1
== END 2024-03-30 16:34 | disposition home or self-care (01) | DRG 872 ==
LOC: ERS 00:46 → 2NO 03:59
PROVIDERS: ADMIT Family Medicine; ATTEND Family Medicine
DX: A41.4 Sepsis due to anaerobes (principal); L03.311 Cellulitis of abdominal wall; Z68.45 Body mass index [BMI] 70 or greater, adult; E66.01 Morbid (severe) obesity due to excess calories; F32.A Depression, unspecified; F41.9 Anxiety disorder, unspecified; I10 Essential (primary) hypertension; R73.03 Prediabetes; M79.3 Panniculitis, unspecified; Z90.49 Acquired absence of other specified parts of digestive tract; Z88.8 Allergy status to other drugs, medicaments and biological substances; Z79.84 Long term (current) use of oral hypoglycemic drugs; Z79.899 Other long term (current) drug therapy
CPT/HCPCS: 36415; 71045; 80048; 80053; 81001; 83036; 83605; 84484; 85025; 87040; 87070; 87077; 87186; 87205; 93005; 96365; 97139; J0692; J1650; J1885; J2270; J3370; J3490; J7120

== ENCOUNTER 2024-06-07 21:35 | Emergency (ER) | payer OTHER ==
[2024-06-07] MEDS ORDERED: Ketorolac Tromethamine 30 MG (1 mL) VIAL ONE (22:45)
[2024-06-07] MEDS ORDERED: Ondansetron PF 4 MG/2 ML Vial ONE (22:46)
[2024-06-07 22:56] LABS: Bacteria/HPF None Seen HPF (None Seen); Bilirubin Negative (Negative); Blood, Urine Negative (Negative); CAUTI Indications for Culture Pelvic or flank pain; Clarity Clear (Clear); Glucose, Urine (Dipstick) Normal (Negative); Ketone, Urine Negative (Negative); Leukocyte Negative Leu/uL (Negative); Nitrite Negative (Negative); Protein, Urine (Dipstick) Negative (Neg-Trace); RBC/HPF 0-3 HPF (0-3); Specific Gravity, Urine 1.021 (1.002-1.036); Squamous Epithelial 0-3 HPF (0-3); Urobilinogen Normal mg/dL (Less than 2); WBC/HPF 0-3 HPF (0-3); pH, Urine 7.5 (5.0-9.0)
[2024-06-07 22:57] LABS: Urine Culture Reflex No No
[2024-06-07 23:03] LABS: #Basophils 0.07 10x3/uL (0.0-0.2); %Basophils 0.7 % (0.0-1.0); %Eosinophils 2.2 % (0.0-10.0); %Lymphocytes 23.1 % (21.0-51.0); %Monocytes 7.1 % (0.0-10.0); %Neutrophils 65.7 % (42.0-75.0); Hematocrit 39.9 % (36.0-47.0); Mean Corpuscular HGB CONC 32.6 g/dL (32.0-36.0); Mean Corpuscular Hemoglobin 29.4 pg (27.0-31.0); Mean Corpuscular Volume 90.3 fL (78.0-98.0); Mean Platelet Volume 10.9 fL (7.4-10.4); Platelet Count 340 10x3/uL (130-400); RBC Distribution Width 14.5 % (11.5-14.5); Red Blood Cell (RBC) Count 4.42 mill/uL (4.20-5.40)
[2024-06-07 23:53] LABS: ALT (SGPT) 29 U/L (8-55); AST (SGOT) 36 U/L (5-34); Albumin 3.4 g/dL (3.5-5.0); Alkaline Phosphatase 67 U/L (40-110); Anion Gap 20 mmol/L (10-20); BUN (Urea Nitrogen) 10 mg/dL (7.0-18.7); Bilirubin, Total 0.2 mg/dL (0.2-1.2); Calc. Creatinine Clearance 0 mL/min (70-130); Calcium 8.8 mg/dL (7.8-10.44); Carbon Dioxide 17 mmol/L (22-29); Chloride 107 mmol/L (98-107); Estimated GFR 114; Globulin 4.8 g/dL (2.4-3.5); Glucose 165 mg/dL (70-105); Lipase 18 U/L (8-78); Potassium 4.9 mmol/L (3.5-5.1); Protein, Total 8.2 g/dL (6.0-8.3); Sodium 139 mmol/L (136-145)
== END 2024-06-08 00:29 | disposition home or self-care (01) ==
LOC: ERS 21:35
DX: R10.9 Unspecified abdominal pain (principal); I10 Essential (primary) hypertension; E78.5 Hyperlipidemia, unspecified; Z79.899 Other long term (current) drug therapy
CPT/HCPCS: 80053; 81001; 83690; 85025; 96374; 96375; J1885; J2405

== ENCOUNTER 2024-07-19 02:41 | Observation (INO) | payer OTHER ==
[2024-07-19 03:26] LABS: #Basophils 0.03 10x3/uL (0.0-0.2); %Basophils 0.4 % (0.0-1.0); %Eosinophils 2.2 % (0.0-10.0); %Lymphocytes 16.4 % (21.0-51.0); %Monocytes 8.5 % (0.0-10.0); Hematocrit 36.8 % (36.0-47.0); Hemoglobin 11.5 g/dL (12.0-16.0); Mean Corpuscular HGB CONC 31.3 g/dL (32.0-36.0); Mean Corpuscular Hemoglobin 29.4 pg (27.0-31.0); Mean Corpuscular Volume 94.1 fL (78.0-98.0); Mean Platelet Volume 9.9 fL (7.4-10.4); Platelet Count 289 10x3/uL (130-400); RBC Distribution Width 14.8 % (11.5-14.5); Red Blood Cell (RBC) Count 3.91 mill/uL (4.20-5.40)
[2024-07-19 03:49] LABS: ALT (SGPT) 16 U/L (8-55); AST (SGOT) 14 U/L (5-34); Albumin 2.9 g/dL (3.5-5.0); Alkaline Phosphatase 70 U/L (40-110); Anion Gap 13 mmol/L (10-20); BUN (Urea Nitrogen) 19 mg/dL (7.0-18.7); Bilirubin, Total 0.2 mg/dL (0.2-1.2); Calc. Creatinine Clearance 0 mL/min (70-130); Calcium 9.3 mg/dL (7.8-10.44); Carbon Dioxide 24 mmol/L (22-29); Chloride 104 mmol/L (98-107); Estimated GFR 86; Globulin 4.1 g/dL (2.4-3.5); Glucose 164 mg/dL (70-105); Potassium 3.7 mmol/L (3.5-5.1); Sodium 137 mmol/L (136-145)
[2024-07-19] MEDS ORDERED: Sodium Chloride 0.9% 100 ML ONE (03:54)
[2024-07-19] MEDS ORDERED: cefTRIAXone (ROCEPHIN) 2 GM VIAL ONE (03:54)
[2024-07-19] MEDS ORDERED: Ketorolac Tromethamine 30 MG (1 mL) VIAL ONE (05:19)
[2024-07-19] MEDS ORDERED: Acetaminophen 500 MG TAB ONE (05:19)
[2024-07-19] MEDS ORDERED: Acetaminophen 325 MG TAB PO PRN (06:01)
[2024-07-19] MEDS ORDERED: Ondansetron ODT 4 MG TAB PO PRN (06:01)
[2024-07-19] MEDS ORDERED: HYDROcodone/Acetaminophen 5/325 mg Tablet PO PRN ×3 (06:06→11:07)
[2024-07-19] MEDS: Vancomycin (BATCH) 2.5 GM in Premix 1 BAG IVPB SCH (06:40)
[2024-07-19] MEDS: HYDROcodone/Acetaminophen 5/325 mg Tablet PO SCH (06:41)
[2024-07-19 06:46] VITALS: BMI 87.7
[2024-07-19] MEDS: Clotrimazole 1 % Cream 30 GM TUBE TOP SCH (08:43)
[2024-07-19] MEDS: Enoxaparin 40 MG (0.4 mL) SYRINGE SC SCH ×2 (08:43→08:50)
[2024-07-19] MEDS: busPIRone HCl 10 MG TAB PO SCH (08:43)
[2024-07-19] MEDS: hydrOXYzine 10 MG TAB PO SCH (08:44)
[2024-07-19] MEDS: lamoTRIgine 100 MG TAB PO SCH (08:44)
[2024-07-19] MEDS: Lisinopril 20 MG TAB PO SCH (08:44)
[2024-07-19] MEDS: Venlafaxine HCl XR 75 MG CAP PO SCH (08:44)
[2024-07-19] MEDS ORDERED: hydrOXYzine 25 MG TAB PO SCH (09:00)
[2024-07-19] MEDS: Ketorolac Tromethamine 30 MG (1 mL) VIAL IVP PRN (11:03)
[2024-07-19] MEDS ORDERED: Ketorolac Tromethamine 30 MG (1 mL) VIAL IVP PRN ×2 (11:10→11:31)
[2024-07-19] MEDS: Morphine 4 MG/ML VIAL SLOW IVP PRN (11:59)
[2024-07-19] MEDS: FLU (Fluarix Triv) TS24-25(6MOS UP)/PF 45 MCG/0.5 ML Syringe IM ONE (15:53)
[2024-07-19] MEDS: Aripiprazole 10 MG TAB PO SCH (20:20)
[2024-07-19] MEDS: Atorvastatin Calcium 40 MG TAB PO SCH (20:20)
[2024-07-20] MEDS: cefTRIAXone\\ROCEPHIN 2 GM in Sodium Chloride 0.9% 100 ML IVPB SCH (04:02)
[2024-07-20 06:23] LABS: #Basophils 0.04 10x3/uL (0.0-0.2); %Basophils 0.6 % (0.0-1.0); %Eosinophils 3.7 % (0.0-10.0); %Lymphocytes 29.9 % (21.0-51.0); %Monocytes 11.1 % (0.0-10.0); %Neutrophils 54.2 % (42.0-75.0); Hematocrit 34.6 % (36.0-47.0); Hemoglobin 10.8 g/dL (12.0-16.0); Mean Corpuscular HGB CONC 31.2 g/dL (32.0-36.0); Mean Corpuscular Hemoglobin 28.5 pg (27.0-31.0); Mean Corpuscular Volume 91.3 fL (78.0-98.0); Mean Platelet Volume 10.6 fL (7.4-10.4); Platelet Count 273 10x3/uL (130-400); Red Blood Cell (RBC) Count 3.79 mill/uL (4.20-5.40)
[2024-07-20 06:40] LABS: Anion Gap 13 mmol/L (10-20); BUN (Urea Nitrogen) 16 mg/dL (7.0-18.7); Calc. Creatinine Clearance 384 mL/min (70-130); Calcium 8.6 mg/dL (7.8-10.44); Carbon Dioxide 23 mmol/L (22-29); Chloride 106 mmol/L (98-107); Estimated GFR 112; Glucose 131 mg/dL (70-105); Potassium 3.8 mmol/L (3.5-5.1); Sodium 138 mmol/L (136-145)
[2024-07-20] MEDS ORDERED: Ibuprofen 800 MG TAB PO PRN (08:14)
[2024-07-20 13:06] VITALS: BP 125/71; TEMP 97.9
== END 2024-07-20 19:34 | disposition home or self-care (01) ==
LOC: ERS 02:41 → T4-A 05:19
PROVIDERS: ADMIT Family Medicine; ATTEND Family Medicine
DX: M79.3 Panniculitis, unspecified (principal); I10 Essential (primary) hypertension; E11.9 Type 2 diabetes mellitus without complications; E78.5 Hyperlipidemia, unspecified; E66.01 Morbid (severe) obesity due to excess calories; Z90.710 Acquired absence of both cervix and uterus; Z87.59 Personal history of other complications of pregnancy, childbirth and the puerperium; Z88.8 Allergy status to other drugs, medicaments and biological substances; Z79.899 Other long term (current) drug therapy
CPT/HCPCS: 36415; 36416; 80048; 80053; 83605; 85025; 87040; 96361; 96365; 96372; 96375; 96376; 97139; G0378; J0696; J1650; J1885; J2272; J3370

== ENCOUNTER 2024-08-10 21:11 | Emergency (ER) | payer OTHER ==
[2024-08-10 22:24] LABS: #Basophils 0.06 10x3/uL (0.0-0.2); %Basophils 0.6 % (0.0-1.0); %Eosinophils 2.2 % (0.0-10.0); %Lymphocytes 19.2 % (21.0-51.0); %Monocytes 7.2 % (0.0-10.0); %Neutrophils 70.3 % (42.0-75.0); Hematocrit 38.2 % (36.0-47.0); Mean Corpuscular HGB CONC 31.4 g/dL (32.0-36.0); Mean Corpuscular Hemoglobin 28.8 pg (27.0-31.0); Mean Corpuscular Volume 91.8 fL (78.0-98.0); Mean Platelet Volume 10.1 fL (7.4-10.4); Platelet Count 373 10x3/uL (130-400); RBC Distribution Width 14.8 % (11.5-14.5); Red Blood Cell (RBC) Count 4.16 mill/uL (4.20-5.40)
[2024-08-10 22:27] LABS: BHCG - Serum Negative (NEGATIVE); Pregs Control Background? CLEAR/WHITE (CLR/WHITE); Pregs Control Bar Appear? YES (CONTROL BAR)
[2024-08-10 22:33] LABS: ALT (SGPT) 15 U/L (8-55); AST (SGOT) 17 U/L (5-34); Albumin 3.2 g/dL (3.5-5.0); Alkaline Phosphatase 70 U/L (40-110); Anion Gap 18 mmol/L (10-20); BUN (Urea Nitrogen) 16 mg/dL (7.0-18.7); Bilirubin, Total 0.2 mg/dL (0.2-1.2); Calc. Creatinine Clearance 0 mL/min (70-130); Calcium 9.5 mg/dL (7.8-10.44); Carbon Dioxide 20 mmol/L (22-29); Chloride 106 mmol/L (98-107); Estimated GFR 112; Globulin 4.7 g/dL (2.4-3.5); Glucose 114 mg/dL (70-105); Potassium 3.9 mmol/L (3.5-5.1); Protein, Total 7.9 g/dL (6.0-8.3); Sodium 140 mmol/L (136-145)
[2024-08-10 22:43] LABS: Troponin I Less than 0.010 ng/mL (< 0.028)
[2024-08-11] MEDS ORDERED: Furosemide 40 MG TAB ONE (02:33)
== END 2024-08-11 02:40 | disposition home or self-care (01) ==
LOC: ERS 21:11
DX: M79.89 Other specified soft tissue disorders (principal); I10 Essential (primary) hypertension
CPT/HCPCS: 36415; 71045; 80053; 83880; 84484; 84703; 85025; 93005

== ENCOUNTER 2024-08-11 23:20 | Emergency (ER) | payer OTHER ==
[2024-08-11] MEDS ORDERED: Vancomycin (BATCH) 2.5 GM in Premix 1 BAG IVPB SCH (23:45)
[2024-08-11] MEDS ORDERED: Ondansetron PF 4 MG/2 ML Vial ONE (23:55)
[2024-08-11] MEDS ORDERED: Morphine 4 MG/ML VIAL ONE (23:55)
[2024-08-11] MEDS ORDERED: Sodium Chloride 0.9% 100 ML ONE (23:56)
[2024-08-11] MEDS ORDERED: Cefepime 2 GM VIAL ONE (23:56)
[2024-08-12 00:36] LABS: #Basophils 0.03 10x3/uL (0.0-0.2); %Basophils 0.3 % (0.0-1.0); %Eosinophils 2.3 % (0.0-10.0); %Lymphocytes 23.1 % (21.0-51.0); %Neutrophils 63.9 % (42.0-75.0); Hematocrit 39.5 % (36.0-47.0); Hemoglobin 12.6 g/dL (12.0-16.0); Mean Corpuscular HGB CONC 31.9 g/dL (32.0-36.0); Mean Corpuscular Hemoglobin 28.8 pg (27.0-31.0); Mean Corpuscular Volume 90.2 fL (78.0-98.0); Mean Platelet Volume 9.9 fL (7.4-10.4); Platelet Count 344 10x3/uL (130-400); RBC Distribution Width 14.7 % (11.5-14.5); Red Blood Cell (RBC) Count 4.38 mill/uL (4.20-5.40)
[2024-08-12 00:55] LABS: Troponin I Less than 0.010 ng/mL (< 0.028)
[2024-08-12] MEDS ORDERED: Morphine 4 MG/ML VIAL ONE (01:06)
[2024-08-12 02:14] LABS: Calcium 9.1 mg/dL (7.8-10.44); Chloride 104 mmol/L (98-107); Sodium 136 mmol/L (136-145)
[2024-08-12 02:15] LABS: Globulin 4.3 g/dL (2.4-3.5); Glucose 104 mg/dL (70-105); Protein, Total 7.3 g/dL (6.0-8.3)
[2024-08-12 02:17] LABS: Anion Gap 15 mmol/L (10-20); Carbon Dioxide 21 mmol/L (22-29)
[2024-08-12 02:18] LABS: Alkaline Phosphatase 66 U/L (40-110); Bilirubin, Total 0.3 mg/dL (0.2-1.2)
[2024-08-12 02:19] LABS: BUN (Urea Nitrogen) 13 mg/dL (7.0-18.7); Calc. Creatinine Clearance 0 mL/min (70-130); Estimated GFR 112
[2024-08-12 02:21] LABS: ALT (SGPT) 15 U/L (8-55); AST (SGOT) 18 U/L (5-34)
[2024-08-12 04:37] LABS: Lactic Acid 1.01 mmol/L (0.5-2.2)
== END 2024-08-12 07:42 | disposition home or self-care (01) ==
LOC: ERS 23:20
DX: B37.9 Candidiasis, unspecified (principal); I10 Essential (primary) hypertension
CPT/HCPCS: 36415; 80053; 83605; 84484; 85025; 87040; 87149; 96365; 96366; 96367; 96375; 96376; J0692; J2272; J2405; J3370

== ENCOUNTER 2025-04-23 19:29 | Emergency (ER) | payer MEDICAID ==
[2025-04-23 19:49] LABS: #Basophils 0.04 10x3/uL (0.0-0.2); #Eosinophils 0.18 10x3/uL (0.0-0.7); #Monocytes 0.72 10x3/uL (0.11-0.59); #Neutrophils 6.03 10x3/uL (1.40-6.50); %Basophils 0.4 % (0.0-1.0); %Eosinophils 2.0 % (0.0-10.0); %Lymphocytes 22.9 % (21.0-51.0); %Monocytes 7.9 % (0.0-10.0); %Neutrophils 66.1 % (42.0-75.0); Hematocrit 37.2 % (36.0-47.0); Hemoglobin 12.0 g/dL (12.0-16.0); Mean Corpuscular Hemoglobin 28.7 pg (27.0-31.0); Mean Corpuscular Volume 89.0 fL (78.0-98.0); Platelet Count 268 10x3/uL (130-400); Red Blood Cell (RBC) Count 4.18 mill/uL (4.20-5.40); White Blood Cell (WBC) Count 9.12 10x3/uL (4.8-10.8)
[2025-04-23] MEDS ORDERED: Ondansetron PF 4 MG/2 ML Vial ONE (20:01)
[2025-04-23 20:03] LABS: INR-International Normal Ratio 1.0; Prothrombin Time 13.7 sec (12.0-14.7)
[2025-04-23 20:04] LABS: PTT 28.8 sec (22.9-36.1)
[2025-04-23 20:14] LABS: ALT (SGPT) 18 U/L (Less than 34); AST (SGOT) 28 U/L (11-34); Albumin 3.0 g/dL (3.1-4.5); Alkaline Phosphatase 61 U/L (40-110); Anion Gap 15 mmol/L (10-20); BUN (Urea Nitrogen) 14 mg/dL (7.0-18.7); Bilirubin, Total 0.2 mg/dL (0.3-1.2); Calc. Creatinine Clearance 0 mL/min (70-130); Calcium 8.9 mg/dL (7.8-10.44); Carbon Dioxide 23 mmol/L (22-29); Chloride 104 mmol/L (98-107); Globulin 4.6 g/dL (2.4-3.5); Glucose 106 mg/dL (70-105); Potassium 4.4 mmol/L (3.5-5.1); Sodium 138 mmol/L (136-145)
[2025-04-23 20:17] LABS: Troponin I Less than 0.010 ng/mL (< 0.028)
[2025-04-23] MEDS ORDERED: VANCOMYCIN 2 GRAM/400 ML BAG ONE (20:46)
[2025-04-23 21:23] LABS: Bacteria/HPF None Seen HPF (None Seen); CAUTI Indications for Culture Alt mental st,lethar; Glucose, Urine (Dipstick) Normal (Negative); Leukocyte Negative Leu/uL (Negative); Protein, Urine (Dipstick) Negative (Neg-Trace); RBC/HPF 0-3 HPF (0-3); Specific Gravity, Urine 1.011 (1.002-1.036); WBC/HPF 0-3 HPF (0-3)
[2025-04-23 21:24] LABS: Urine Culture Reflex No No
[2025-04-23] MEDS ORDERED: HYDROcodone/Acetaminophen 10/325 mg Tablet ONE (22:17)
== END 2025-04-23 23:58 | disposition home or self-care (01) ==
LOC: ERS 19:29
DX: L03.311 Cellulitis of abdominal wall (principal); I10 Essential (primary) hypertension; E78.5 Hyperlipidemia, unspecified; E11.9 Type 2 diabetes mellitus without complications; Z79.899 Other long term (current) drug therapy
CPT/HCPCS: 36415; 80053; 81001; 83605; 84484; 85025; 85610; 85730; 87040; 93005; 96365; 96366; 96368; 96375; J2270; J2405; J2543; J3370

== ENCOUNTER 2025-06-13 14:22 | Emergency (ER) | payer MEDICAID ==
[2025-06-13 16:26] LABS: Actual Bicarbonate (HCO3v) 27.0 mEq/L (22-28); Base Excess 2.6 mEq/L (-2.0 to +3.0); Calcium, Ionized (venous) 1.08 mmol/L (1.16-1.32); Chloride (VBG) 101 mmol/L (98-106); Hematocrit-VBG 37 % (36.0-47.0); Hemoglobin (Hb) 12.6 g/dL (11.7-15.5); Potassium (VBG) 4.08 mmol/L (3.70-5.30); Sodium 137 mmol/L (133-146)
[2025-06-13 16:27] LABS: #Basophils 0.06 10x3/uL (0.0-0.2); #Eosinophils 0.21 10x3/uL (0.0-0.7); #Monocytes 0.75 10x3/uL (0.11-0.59); #Neutrophils 5.48 10x3/uL (1.40-6.50); %Basophils 0.7 % (0.0-1.0); %Eosinophils 2.5 % (0.0-10.0); %Lymphocytes 21.9 % (21.0-51.0); %Monocytes 8.9 % (0.0-10.0); %Neutrophils 64.7 % (42.0-75.0); Hematocrit 36.1 % (36.0-47.0); Hemoglobin 11.1 g/dL (12.0-16.0); Mean Corpuscular Hemoglobin 27.1 pg (27.0-31.0); Mean Corpuscular Volume 88.0 fL (78.0-98.0); Platelet Count 274 10x3/uL (130-400); Red Blood Cell (RBC) Count 4.10 mill/uL (4.20-5.40); White Blood Cell (WBC) Count 8.46 10x3/uL (4.8-10.8)
[2025-06-13] MEDS ORDERED: Cefepime 2 GM VIAL ONE (16:33)
[2025-06-13 16:42] LABS: ALT (SGPT) 34 U/L (Less than 34); AST (SGOT) 57 U/L (11-34); Albumin 3.1 g/dL (3.1-4.5); Alkaline Phosphatase 63 U/L (40-110); Anion Gap 15 mmol/L (10-20); BUN (Urea Nitrogen) 15 mg/dL (7.0-18.7); Bilirubin, Total 0.1 mg/dL (0.3-1.2); Calc. Creatinine Clearance 0 mL/min (70-130); Calcium 9.3 mg/dL (7.8-10.44); Carbon Dioxide 24 mmol/L (22-29); Chloride 102 mmol/L (98-107); Globulin 4.4 g/dL (2.4-3.5); Glucose 155 mg/dL (70-105); Potassium 4.0 mmol/L (3.5-5.1); Sodium 137 mmol/L (136-145)
[2025-06-13 17:12] LABS: Bacteria/HPF None Seen HPF (None Seen); CAUTI Indications for Culture Dysuria,urgency,freq; Glucose, Urine (Dipstick) Normal (Negative); Leukocyte Negative Leu/uL (Negative); Protein, Urine (Dipstick) Negative (Neg-Trace); RBC/HPF 0-3 HPF (0-3); Specific Gravity, Urine 1.022 (1.002-1.036); WBC/HPF 0-3 HPF (0-3)
[2025-06-13 17:14] LABS: Urine Culture Reflex No No
[2025-06-13] MEDS ORDERED: VANCOMYCIN 2 GRAM/400 ML BAG ONE (17:34)
== END 2025-06-13 23:36 | disposition home or self-care (01) ==
LOC: ERS 14:22
DX: M79.3 Panniculitis, unspecified (principal); E66.01 Morbid (severe) obesity due to excess calories; I10 Essential (primary) hypertension; E11.9 Type 2 diabetes mellitus without complications; Z55.6 Problems related to health literacy
CPT/HCPCS: 71045; 80053; 81001; 82805; 83605; 85025; 87040; 87077; 87086; 87186; 87426; 93005; 94760; 96374; 96375; 96376; J0692; J2270; J3375

== ENCOUNTER 2025-07-17 12:44 | Emergency (ER) | payer MEDICAID ==
[2025-07-17 15:48] LABS: #Basophils 0.07 10x3/uL (0.0-0.2); #Eosinophils 0.29 10x3/uL (0.0-0.7); #Monocytes 0.81 10x3/uL (0.11-0.59); #Neutrophils 6.00 10x3/uL (1.40-6.50); %Basophils 0.7 % (0.0-1.0); %Eosinophils 3.0 % (0.0-10.0); %Lymphocytes 24.6 % (21.0-51.0); %Monocytes 8.4 % (0.0-10.0); %Neutrophils 62.6 % (42.0-75.0); Hematocrit 41.2 % (36.0-47.0); Hemoglobin 12.7 g/dL (12.0-16.0); Mean Corpuscular Hemoglobin 27.0 pg (27.0-31.0); Mean Corpuscular Volume 87.7 fL (78.0-98.0); Platelet Count 302 10x3/uL (130-400); Red Blood Cell (RBC) Count 4.70 mill/uL (4.20-5.40); White Blood Cell (WBC) Count 9.60 10x3/uL (4.8-10.8)
[2025-07-17] MEDS ORDERED: Ketorolac Tromethamine 30 MG (1 mL) VIAL ONE (15:56)
[2025-07-17] MEDS ORDERED: Prochlorperazine 10 MG/2 ML VIAL ONE (15:56)
[2025-07-17] MEDS ORDERED: diphenhydrAMINE 50 MG/ML VIAL ONE (15:56)
[2025-07-17 15:57] LABS: BHCG - Serum Negative (NEGATIVE); Pregs Control Background? CLEAR/WHITE (CLR/WHITE); Pregs Control Bar Appear? YES (CONTROL BAR)
[2025-07-17 16:06] LABS: ALT (SGPT) 54 U/L (Less than 34); AST (SGOT) 85 U/L (11-34); Albumin 3.5 g/dL (3.1-4.5); Alkaline Phosphatase 72 U/L (40-110); Anion Gap 13 mmol/L (10-20); BUN (Urea Nitrogen) 10 mg/dL (7.0-18.7); Bilirubin, Total 0.2 mg/dL (0.3-1.2); Calc. Creatinine Clearance 0 mL/min (70-130); Calcium 9.1 mg/dL (7.8-10.44); Carbon Dioxide 27 mmol/L (22-29); Chloride 104 mmol/L (98-107); Globulin 4.8 g/dL (2.4-3.5); Glucose 110 mg/dL (70-105); Lipase 16 U/L (8-78); Magnesium 1.6 mg/dL (1.6-2.6); Potassium 3.6 mmol/L (3.5-5.1); Sodium 140 mmol/L (136-145)
[2025-07-17 16:54] LABS: Bacteria/HPF 1+ HPF (None Seen); CAUTI Indications for Culture Immunosuppressed; Glucose, Urine (Dipstick) Normal (Negative); Leukocyte Negative Leu/uL (Negative); Protein, Urine (Dipstick) 50 mg/dL (Neg-Trace); RBC/HPF 0-3 HPF (0-3); Specific Gravity, Urine 1.026 (1.002-1.036); WBC/HPF 0-3 HPF (0-3)
[2025-07-17 16:55] LABS: Urine Culture Reflex Yes Yes
== END 2025-07-17 17:30 | disposition home or self-care (01) ==
LOC: ERS 12:44
DX: M54.06 Panniculitis affecting regions of neck and back, lumbar region (principal); R94.5 Abnormal results of liver function studies; I10 Essential (primary) hypertension; E11.9 Type 2 diabetes mellitus without complications
CPT/HCPCS: 36416; 80053; 81001; 83605; 83690; 83735; 84703; 85025; 87040; 87086; 87149; 93005; 96361; 96374; 96375; J0780; J1200; J1885

== ENCOUNTER 2025-07-27 10:23 | Inpatient (IN) | payer MEDICAID ==
[2025-07-27] MEDS ORDERED: Ondansetron PF 4 MG/2 ML Vial ONE (10:53)
[2025-07-27] MEDS ORDERED: Ketorolac Tromethamine 30 MG (1 mL) VIAL ONE (10:53)
[2025-07-27] MEDS ORDERED: Acetaminophen 500 MG TAB ONE (10:53)
[2025-07-27 11:07] LABS: #Basophils 0.05 10x3/uL (0.0-0.2); #Eosinophils 0.28 10x3/uL (0.0-0.7); #Monocytes 0.69 10x3/uL (0.11-0.59); #Neutrophils 4.93 10x3/uL (1.40-6.50); %Basophils 0.6 % (0.0-1.0); %Eosinophils 3.4 % (0.0-10.0); %Lymphocytes 27.2 % (21.0-51.0); %Monocytes 8.4 % (0.0-10.0); %Neutrophils 59.8 % (42.0-75.0); Hematocrit 41.7 % (36.0-47.0); Hemoglobin 12.9 g/dL (12.0-16.0); Mean Corpuscular Hemoglobin 27.4 pg (27.0-31.0); Mean Corpuscular Volume 88.5 fL (78.0-98.0); Platelet Count 294 10x3/uL (130-400); Red Blood Cell (RBC) Count 4.71 mill/uL (4.20-5.40); White Blood Cell (WBC) Count 8.24 10x3/uL (4.8-10.8)
[2025-07-27 11:24] LABS: Actual Bicarbonate (HCO3v) 21.8 mEq/L (22-28); Base Excess -3.6 mEq/L (-2.0 to +3.0); Calcium, Ionized (venous) 1.14 mmol/L (1.16-1.32); Chloride (VBG) 100 mmol/L (98-106); Hematocrit-VBG 41 % (36.0-47.0); Hemoglobin (Hb) 14.0 g/dL (11.7-15.5); Potassium (VBG) 4.05 mmol/L (3.70-5.30); Sodium 137 mmol/L (133-146)
[2025-07-27 11:27] LABS: ALT (SGPT) 38 U/L (Less than 34); AST (SGOT) 68 U/L (11-34); Albumin 3.6 g/dL (3.1-4.5); Alkaline Phosphatase 75 U/L (40-110); Anion Gap 15 mmol/L (10-20); BUN (Urea Nitrogen) 5 mg/dL (7.0-18.7); Bilirubin, Total 0.3 mg/dL (0.3-1.2); Calc. Creatinine Clearance 0 mL/min (70-130); Calcium 9.4 mg/dL (7.8-10.44); Carbon Dioxide 24 mmol/L (22-29); Chloride 101 mmol/L (98-107); Globulin 4.6 g/dL (2.4-3.5); Glucose 199 mg/dL (70-105); Lipase 19 U/L (8-78); Potassium 4.2 mmol/L (3.5-5.1); Sodium 136 mmol/L (136-145)
[2025-07-27] MEDS ORDERED: Cefepime 2 GM VIAL ONE (12:44)
[2025-07-27] MEDS ORDERED: VANCOMYCIN 2 GRAM/400 ML BAG ONE (13:17)
[2025-07-27 13:19] LABS: Pregnancy Test - Urine (BHCG) Negative (Negative); Pregu Control Background? CLEAR/WHITE (CLR/WHITE); Pregu Control Bar Appear? YES (CONTROL BAR)
[2025-07-27 13:30] LABS: Bacteria/HPF None Seen HPF (None Seen); CAUTI Indications for Culture Dysuria,urgency,freq; Glucose, Urine (Dipstick) Normal (Negative); Leukocyte Negative Leu/uL (Negative); Protein, Urine (Dipstick) 50 mg/dL (Neg-Trace); RBC/HPF 0-3 HPF (0-3); Specific Gravity, Urine 1.012 (1.002-1.036); WBC/HPF 0-3 HPF (0-3)
[2025-07-27 13:32] LABS: Urine Culture Reflex No No
[2025-07-27 14:29] VITALS: BMI 88.2
[2025-07-27] MEDS ORDERED: Ondansetron PF 4 MG/2 ML Vial IVP PRN (14:36)
[2025-07-27] MEDS ORDERED: Glucagon 1 MG/ML KIT IM PRN (14:42)
[2025-07-27] MEDS ORDERED: Dextrose 50% Abboject 50 ML SYRINGE SLOW IVP PRN (14:42)
[2025-07-27] MEDS: Acetaminophen 325 MG TAB PO SCH (16:49)
[2025-07-27] MEDS: Enoxaparin 60 MG (0.6 mL) SYRINGE SC SCH (20:25)
[2025-07-27] MEDS: Famotidine 20 MG TAB PO SCH (20:25)
[2025-07-28] MEDS: Ketorolac Tromethamine 30 MG (1 mL) VIAL IVP SCH (03:22)
[2025-07-28 07:42] LABS: #Basophils 0.04 10x3/uL (0.0-0.2); #Eosinophils 0.26 10x3/uL (0.0-0.7); #Monocytes 0.50 10x3/uL (0.11-0.59); #Neutrophils 3.51 10x3/uL (1.40-6.50); %Basophils 0.6 % (0.0-1.0); %Eosinophils 4.1 % (0.0-10.0); %Lymphocytes 30.9 % (21.0-51.0); %Monocytes 8.0 % (0.0-10.0); %Neutrophils 56.1 % (42.0-75.0); Hematocrit 39.3 % (36.0-47.0); Hemoglobin 11.8 g/dL (12.0-16.0); Mean Corpuscular Hemoglobin 27.2 pg (27.0-31.0); Mean Corpuscular Volume 90.6 fL (78.0-98.0); Platelet Count 265 10x3/uL (130-400); Red Blood Cell (RBC) Count 4.34 mill/uL (4.20-5.40); White Blood Cell (WBC) Count 6.27 10x3/uL (4.8-10.8)
[2025-07-28 07:57] LABS: ALT (SGPT) 36 U/L (Less than 34); AST (SGOT) 67 U/L (11-34); Albumin 3.1 g/dL (3.1-4.5); Alkaline Phosphatase 64 U/L (40-110); Anion Gap 16 mmol/L (10-20); BUN (Urea Nitrogen) 9 mg/dL (7.0-18.7); Bilirubin, Total 0.2 mg/dL (0.3-1.2); Calc. Creatinine Clearance 455 mL/min (70-130); Calcium 8.6 mg/dL (7.8-10.44); Carbon Dioxide 24 mmol/L (22-29); Chloride 101 mmol/L (98-107); Globulin 4.0 g/dL (2.4-3.5); Glucose 132 mg/dL (70-105); Potassium 3.5 mmol/L (3.5-5.1); Sodium 137 mmol/L (136-145)
[2025-07-28] MEDS: Lisinopril 20 MG TAB PO SCH (08:10)
[2025-07-28] MEDS ORDERED: Lisinopril 20 MG TAB PO SCH (09:00)
[2025-07-28] MEDS ORDERED: Enoxaparin 40 MG (0.4 mL) SYRINGE SC SCH (09:00)
[2025-07-28 19:10] VITALS: BP 125/78; TEMP 98.2
== END 2025-07-28 20:08 | disposition home or self-care (01) | DRG 392 ==
LOC: ERS 10:23 → ERHOLD 13:33 → T4-A 15:11
PROVIDERS: ADMIT Student in an Organized Health Care Education/Training Program; ATTEND Student in an Organized Health Care Education/Training Program
DX: R10.9 Unspecified abdominal pain (principal); I10 Essential (primary) hypertension; E66.01 Morbid (severe) obesity due to excess calories; F17.210 Nicotine dependence, cigarettes, uncomplicated; E86.0 Dehydration; Z79.899 Other long term (current) drug therapy; Z88.8 Allergy status to other drugs, medicaments and biological substances; E11.65 Type 2 diabetes mellitus with hyperglycemia
CPT/HCPCS: 36415; 36416; 76856; 80053; 81001; 81025; 82010; 82805; 83036; 83605; 83690; 84484; 85025; 87040; 93005; 97139; J0692; J1650; J1885; J2270; J2272; J2405; J3010; J3375; J7120

== ENCOUNTER 2025-08-13 08:59 | Emergency (ER) | payer MEDICAID ==
[2025-08-13 10:04] LABS: #Basophils 0.06 10x3/uL (0.0-0.2); #Eosinophils 0.20 10x3/uL (0.0-0.7); #Monocytes 0.77 10x3/uL (0.11-0.59); #Neutrophils 6.27 10x3/uL (1.40-6.50); %Basophils 0.6 % (0.0-1.0); %Eosinophils 2.1 % (0.0-10.0); %Lymphocytes 23.4 % (21.0-51.0); %Monocytes 8.0 % (0.0-10.0); %Neutrophils 65.1 % (42.0-75.0); Hematocrit 39.0 % (36.0-47.0); Hemoglobin 12.2 g/dL (12.0-16.0); Mean Corpuscular Hemoglobin 27.4 pg (27.0-31.0); Mean Corpuscular Volume 87.6 fL (78.0-98.0); Platelet Count 274 10x3/uL (130-400); Red Blood Cell (RBC) Count 4.45 mill/uL (4.20-5.40); White Blood Cell (WBC) Count 9.64 10x3/uL (4.8-10.8)
[2025-08-13 10:29] LABS: ALT (SGPT) 42 U/L (Less than 34); AST (SGOT) 72 U/L (11-34); Albumin 3.4 g/dL (3.1-4.5); Alkaline Phosphatase 74 U/L (40-110); Anion Gap 17 mmol/L (10-20); BUN (Urea Nitrogen) 13 mg/dL (7.0-18.7); Bilirubin, Total 0.2 mg/dL (0.3-1.2); Calc. Creatinine Clearance 0 mL/min (70-130); Calcium 9.2 mg/dL (7.8-10.44); Carbon Dioxide 23 mmol/L (22-29); Chloride 104 mmol/L (98-107); Globulin 4.6 g/dL (2.4-3.5); Glucose 169 mg/dL (70-105); Potassium 3.7 mmol/L (3.5-5.1); Sodium 140 mmol/L (136-145)
== END 2025-08-13 12:38 | disposition home or self-care (01) ==
LOC: ERS 08:59
DX: L03.311 Cellulitis of abdominal wall (principal); I10 Essential (primary) hypertension; E66.01 Morbid (severe) obesity due to excess calories; E11.9 Type 2 diabetes mellitus without complications; F17.210 Nicotine dependence, cigarettes, uncomplicated; Z79.899 Other long term (current) drug therapy
CPT/HCPCS: 80053; 83605; 85025; 87040; 96374; J2270

== ENCOUNTER 2025-08-13 23:08 | Inpatient (IN) | payer MEDICAID ==
[2025-08-13 23:53] LABS: #Basophils 0.08 10x3/uL (0.0-0.2); #Eosinophils 0.24 10x3/uL (0.0-0.7); #Monocytes 0.97 10x3/uL (0.11-0.59); #Neutrophils 6.90 10x3/uL (1.40-6.50); %Basophils 0.7 % (0.0-1.0); %Eosinophils 2.2 % (0.0-10.0); %Lymphocytes 24.0 % (21.0-51.0); %Monocytes 8.9 % (0.0-10.0); %Neutrophils 63.6 % (42.0-75.0); Hematocrit 40.4 % (36.0-47.0); Hemoglobin 12.5 g/dL (12.0-16.0); Mean Corpuscular Hemoglobin 27.2 pg (27.0-31.0); Mean Corpuscular Volume 88.0 fL (78.0-98.0); Platelet Count 313 10x3/uL (130-400); Red Blood Cell (RBC) Count 4.59 mill/uL (4.20-5.40); White Blood Cell (WBC) Count 10.87 10x3/uL (4.8-10.8)
[2025-08-14 00:16] LABS: ALT (SGPT) 56 U/L (Less than 34); AST (SGOT) 128 U/L (11-34); Albumin 3.5 g/dL (3.1-4.5); Alkaline Phosphatase 82 U/L (40-110); Anion Gap 17 mmol/L (10-20); BUN (Urea Nitrogen) 13 mg/dL (7.0-18.7); Bilirubin, Total 0.2 mg/dL (0.3-1.2); Calc. Creatinine Clearance 0 mL/min (70-130); Calcium 9.1 mg/dL (7.8-10.44); Carbon Dioxide 24 mmol/L (22-29); Chloride 102 mmol/L (98-107); Globulin 4.7 g/dL (2.4-3.5); Glucose 155 mg/dL (70-105); Potassium 3.4 mmol/L (3.5-5.1); Sodium 140 mmol/L (136-145)
[2025-08-14] MEDS ORDERED: Senokot S 8.6-50 MG TAB PO PRN (01:31)
[2025-08-14] MEDS ORDERED: Dextrose 50% Abboject 50 ML SYRINGE SLOW IVP PRN (01:31)
[2025-08-14] MEDS ORDERED: Glucagon 1 MG/ML KIT IM PRN (01:31)
[2025-08-14] MEDS ORDERED: hydrALAZINE 20 MG/ML VIAL SLOW IVP PRN (02:21)
[2025-08-14] MEDS: Vancomycin (BATCH) 2.5 GM in Premix 1 BAG IVPB SCH (02:48)
[2025-08-14] MEDS: Nystatin Powder 15 GM BOT TOP SCH ×2 (02:48→08:19)
[2025-08-14] MEDS: NIFEdipine XL 30 MG ER.TAB PO SCH ×2 (02:58→08:18)
[2025-08-14 03:16] VITALS: BMI 70.8
[2025-08-14 06:41] LABS: #Basophils 0.04 10x3/uL (0.0-0.2); #Eosinophils 0.24 10x3/uL (0.0-0.7); #Monocytes 0.86 10x3/uL (0.11-0.59); #Neutrophils 5.71 10x3/uL (1.40-6.50); %Basophils 0.4 % (0.0-1.0); %Eosinophils 2.7 % (0.0-10.0); %Lymphocytes 23.2 % (21.0-51.0); %Monocytes 9.6 % (0.0-10.0); %Neutrophils 63.7 % (42.0-75.0); Hematocrit 35.6 % (36.0-47.0); Hemoglobin 10.9 g/dL (12.0-16.0); Mean Corpuscular Hemoglobin 27.5 pg (27.0-31.0); Mean Corpuscular Volume 89.7 fL (78.0-98.0); Platelet Count 237 10x3/uL (130-400); Red Blood Cell (RBC) Count 3.97 mill/uL (4.20-5.40); White Blood Cell (WBC) Count 8.97 10x3/uL (4.8-10.8)
[2025-08-14 06:58] LABS: ALT (SGPT) 44 U/L (Less than 34); AST (SGOT) 90 U/L (11-34); Albumin 2.9 g/dL (3.1-4.5); Alkaline Phosphatase 65 U/L (40-110); Anion Gap 10 mmol/L (10-20); BUN (Urea Nitrogen) 12 mg/dL (7.0-18.7); Bilirubin, Total 0.3 mg/dL (0.3-1.2); Calc. Creatinine Clearance 359 mL/min (70-130); Calcium 8.1 mg/dL (7.8-10.44); Carbon Dioxide 25 mmol/L (22-29); Chloride 107 mmol/L (98-107); Globulin 4.0 g/dL (2.4-3.5); Glucose 180 mg/dL (70-105); Potassium 3.4 mmol/L (3.5-5.1); Sodium 139 mmol/L (136-145)
[2025-08-14] MEDS: Ondansetron PF 4 MG/2 ML Vial IVP PRN (08:11)
[2025-08-14] MEDS: Fluconazole 100 MG TAB PO SCH (08:16)
[2025-08-14] MEDS: lamoTRIgine 100 MG TAB PO SCH (08:17)
[2025-08-14] MEDS: Enoxaparin 40 MG (0.4 mL) SYRINGE SC SCH (08:18)
[2025-08-14] MEDS: Vancomycin 1.25 GM / NS 250 ML VIAL-2-BAG IVPB SCH (08:19)
[2025-08-14] MEDS: Ketorolac Tromethamine 30 MG (1 mL) VIAL IVP PRN (08:40)
[2025-08-14] MEDS ORDERED: Cariprazine Hcl [Vraylar] 1.5 MG Capsule PO SCH (09:00)
[2025-08-14] MEDS ORDERED: Vancomycin (BATCH) 2.5 GM/500 ML BAG IVPB SCH (09:00)
[2025-08-14] MEDS: HYDROcodone/Acetaminophen 5/325 mg Tablet PO PRN (14:09)
[2025-08-14] MEDS: Acetaminophen 325 MG TAB PO PRN (14:10)
[2025-08-14] MEDS: Gabapentin 300 MG CAP PO SCH (23:08)
[2025-08-15 06:31] LABS: #Basophils 0.04 10x3/uL (0.0-0.2); #Eosinophils 0.26 10x3/uL (0.0-0.7); #Monocytes 0.70 10x3/uL (0.11-0.59); #Neutrophils 4.80 10x3/uL (1.40-6.50); %Basophils 0.5 % (0.0-1.0); %Eosinophils 3.3 % (0.0-10.0); %Lymphocytes 24.9 % (21.0-51.0); %Monocytes 9.0 % (0.0-10.0); %Neutrophils 61.5 % (42.0-75.0); Hematocrit 36.1 % (36.0-47.0); Hemoglobin 10.9 g/dL (12.0-16.0); Mean Corpuscular Hemoglobin 27.3 pg (27.0-31.0); Mean Corpuscular Volume 90.3 fL (78.0-98.0); Platelet Count 265 10x3/uL (130-400); Red Blood Cell (RBC) Count 4.00 mill/uL (4.20-5.40); White Blood Cell (WBC) Count 7.80 10x3/uL (4.8-10.8)
[2025-08-15 06:44] LABS: Vancomycin, Random 10.0 ug/mL (See Comment)
[2025-08-15 06:52] LABS: ALT (SGPT) 60 U/L (Less than 34); AST (SGOT) 127 U/L (11-34); Albumin 3.0 g/dL (3.1-4.5); Alkaline Phosphatase 71 U/L (40-110); Anion Gap 12 mmol/L (10-20); BUN (Urea Nitrogen) 9 mg/dL (7.0-18.7); Bilirubin, Total 0.3 mg/dL (0.3-1.2); Calc. Creatinine Clearance 400 mL/min (70-130); Calcium 8.3 mg/dL (7.8-10.44); Carbon Dioxide 26 mmol/L (22-29); Chloride 105 mmol/L (98-107); Globulin 4.2 g/dL (2.4-3.5); Glucose 125 mg/dL (70-105); Potassium 3.8 mmol/L (3.5-5.1); Sodium 139 mmol/L (136-145)
[2025-08-15 14:45] VITALS: BMI 70.8
[2025-08-15] MEDS: Ibuprofen 600 MG TAB PO PRN (16:52)
[2025-08-15] MEDS: Enoxaparin 60 MG (0.6 mL) SYRINGE SC SCH (20:48)
[2025-08-16 06:07] LABS: #Basophils 0.06 10x3/uL (0.0-0.2); #Eosinophils 0.34 10x3/uL (0.0-0.7); #Monocytes 0.70 10x3/uL (0.11-0.59); #Neutrophils 4.18 10x3/uL (1.40-6.50); %Basophils 0.8 % (0.0-1.0); %Eosinophils 4.7 % (0.0-10.0); %Lymphocytes 26.5 % (21.0-51.0); %Monocytes 9.6 % (0.0-10.0); %Neutrophils 57.3 % (42.0-75.0); Hematocrit 38.4 % (36.0-47.0); Hemoglobin 11.8 g/dL (12.0-16.0); Mean Corpuscular Hemoglobin 27.8 pg (27.0-31.0); Mean Corpuscular Volume 90.6 fL (78.0-98.0); Platelet Count 269 10x3/uL (130-400); Red Blood Cell (RBC) Count 4.24 mill/uL (4.20-5.40); White Blood Cell (WBC) Count 7.29 10x3/uL (4.8-10.8)
[2025-08-16 06:20] LABS: Vancomycin, Random 12.1 ug/mL (See Comment)
[2025-08-16 06:24] LABS: ALT (SGPT) 68 U/L (Less than 34); AST (SGOT) 113 U/L (11-34); Albumin 3.0 g/dL (3.1-4.5); Alkaline Phosphatase 72 U/L (40-110); Anion Gap 14 mmol/L (10-20); BUN (Urea Nitrogen) 10 mg/dL (7.0-18.7); Bilirubin, Total 0.2 mg/dL (0.3-1.2); Calc. Creatinine Clearance 348 mL/min (70-130); Calcium 8.8 mg/dL (7.8-10.44); Carbon Dioxide 23 mmol/L (22-29); Chloride 107 mmol/L (98-107); Globulin 4.0 g/dL (2.4-3.5); Glucose 143 mg/dL (70-105); Potassium 4.0 mmol/L (3.5-5.1); Sodium 140 mmol/L (136-145)
[2025-08-16] MEDS: HYDROcodone/Acetaminophen 7.5/325 mg Tablet PO PRN (17:40)
[2025-08-17 05:33] LABS: #Basophils 0.05 10x3/uL (0.0-0.2); #Eosinophils 0.37 10x3/uL (0.0-0.7); #Monocytes 0.71 10x3/uL (0.11-0.59); #Neutrophils 4.12 10x3/uL (1.40-6.50); %Basophils 0.7 % (0.0-1.0); %Eosinophils 5.1 % (0.0-10.0); %Lymphocytes 27.1 % (21.0-51.0); %Monocytes 9.7 % (0.0-10.0); %Neutrophils 56.3 % (42.0-75.0); Hematocrit 35.6 % (36.0-47.0); Hemoglobin 10.6 g/dL (12.0-16.0); Mean Corpuscular Hemoglobin 27.0 pg (27.0-31.0); Mean Corpuscular Volume 90.8 fL (78.0-98.0); Platelet Count 277 10x3/uL (130-400); Red Blood Cell (RBC) Count 3.92 mill/uL (4.20-5.40); White Blood Cell (WBC) Count 7.31 10x3/uL (4.8-10.8)
[2025-08-17 05:49] LABS: ALT (SGPT) 63 U/L (Less than 34); AST (SGOT) 100 U/L (11-34); Albumin 2.9 g/dL (3.1-4.5); Alkaline Phosphatase 67 U/L (40-110); Anion Gap 16 mmol/L (10-20); BUN (Urea Nitrogen) 10 mg/dL (7.0-18.7); Bilirubin, Total 0.2 mg/dL (0.3-1.2); Calc. Creatinine Clearance 372 mL/min (70-130); Calcium 8.4 mg/dL (7.8-10.44); Carbon Dioxide 19 mmol/L (22-29); Chloride 105 mmol/L (98-107); Globulin 3.8 g/dL (2.4-3.5); Glucose 199 mg/dL (70-105); Potassium 3.5 mmol/L (3.5-5.1); Sodium 136 mmol/L (136-145)
[2025-08-17 13:05] VITALS: BP 160/88; TEMP 98.3
== END 2025-08-17 12:55 | disposition home or self-care (01) | DRG 603 ==
LOC: ERS 23:08 → T4-B 08-14 01:31 → OBSVTOIN 08-15 16:32
PROVIDERS: ADMIT Internal Medicine; ATTEND Internal Medicine
DX: L03.311 Cellulitis of abdominal wall (principal); E87.20 Acidosis, unspecified; Z68.45 Body mass index [BMI] 70 or greater, adult; M79.3 Panniculitis, unspecified; I10 Essential (primary) hypertension; E66.01 Morbid (severe) obesity due to excess calories; E86.0 Dehydration; E11.65 Type 2 diabetes mellitus with hyperglycemia; R74.01 Elevation of levels of liver transaminase levels; Z91.199 Patient's noncompliance with other medical treatment and regimen due to unspecified reason; Z90.49 Acquired absence of other specified parts of digestive tract; Z98.1 Arthrodesis status; E78.5 Hyperlipidemia, unspecified; G43.909 Migraine, unspecified, not intractable, without status migrainosus; F41.9 Anxiety disorder, unspecified; F32.A Depression, unspecified
CPT/HCPCS: 36415; 36416; 80053; 80202; 83605; 84484; 85025; 86141; 93005; 96365; 96372; 96375; 96376; 97139; G0378; J1650; J1815; J1885; J2270; J2405; J3373; J7030; J7050

== ENCOUNTER 2025-08-18 19:32 | Inpatient (IN) | payer MEDICAID ==
[2025-08-18] MEDS ORDERED: Acetaminophen 500 MG TAB ONE (20:21)
[2025-08-18 20:48] LABS: #Basophils 0.06 10x3/uL (0.0-0.2); #Eosinophils 0.33 10x3/uL (0.0-0.7); #Monocytes 0.81 10x3/uL (0.11-0.59); #Neutrophils 5.45 10x3/uL (1.40-6.50); %Basophils 0.7 % (0.0-1.0); %Eosinophils 3.7 % (0.0-10.0); %Lymphocytes 23.8 % (21.0-51.0); %Monocytes 9.1 % (0.0-10.0); %Neutrophils 61.5 % (42.0-75.0); Hematocrit 37.1 % (36.0-47.0); Hemoglobin 11.3 g/dL (12.0-16.0); Mean Corpuscular Hemoglobin 27.6 pg (27.0-31.0); Mean Corpuscular Volume 90.5 fL (78.0-98.0); Platelet Count 314 10x3/uL (130-400); Red Blood Cell (RBC) Count 4.10 mill/uL (4.20-5.40); White Blood Cell (WBC) Count 8.87 10x3/uL (4.8-10.8)
[2025-08-18 20:57] LABS: BHCG - Serum Negative (NEGATIVE); Pregs Control Background? CLEAR/WHITE (CLR/WHITE); Pregs Control Bar Appear? YES (CONTROL BAR)
[2025-08-18 21:04] LABS: ALT (SGPT) 63 U/L (Less than 34); AST (SGOT) 89 U/L (11-34); Albumin 3.3 g/dL (3.1-4.5); Alkaline Phosphatase 72 U/L (40-110); Anion Gap 14 mmol/L (10-20); BUN (Urea Nitrogen) 12 mg/dL (7.0-18.7); Bilirubin, Total 0.1 mg/dL (0.3-1.2); Calc. Creatinine Clearance 0 mL/min (70-130); Calcium 9.1 mg/dL (7.8-10.44); Carbon Dioxide 23 mmol/L (22-29); Chloride 106 mmol/L (98-107); Globulin 4.1 g/dL (2.4-3.5); Glucose 159 mg/dL (70-105); Lipase 19 U/L (8-78); Magnesium 1.8 mg/dL (1.6-2.6); Potassium 3.8 mmol/L (3.5-5.1); Sodium 139 mmol/L (136-145)
[2025-08-18] MEDS ORDERED: Ondansetron PF 4 MG/2 ML Vial IVP PRN (23:37)
[2025-08-18] MEDS ORDERED: hydrALAZINE 20 MG/ML VIAL SLOW IVP PRN (23:37)
[2025-08-18] MEDS ORDERED: Rocuronium Bromide 10 MG/ML (10ML VIAL) ONE (23:44)
[2025-08-18] MEDS ORDERED: Lidocaine 1% PF 5 ML VIAL ONE (23:44)
[2025-08-19] MEDS ORDERED: fentaNYL PF 100 MCG/2 ML SYRINGE ONE ×2 (00:02→02:09)
[2025-08-19] MEDS ORDERED: SUCCINYLCHOLINE/SOD CL,ISO/PF 200 MG/10 ML SYRINGE FS ONE (00:10)
[2025-08-19] MEDS ORDERED: Ondansetron PF 4 MG/2 ML Vial ONE (00:48)
[2025-08-19] MEDS ORDERED: SUGAMMADEX SODIUM 200 MG/2 ML VIAL ONE ×2 (01:14→01:23)
[2025-08-19] MEDS ORDERED: hydrALAZINE 20 MG/ML VIAL ONE (01:39)
[2025-08-19] MEDS ORDERED: HYDROmorphone 0.5 MG/0.5 ML SYRINGE ONE ×3 (02:21→03:00)
[2025-08-19] MEDS: Clindamycin/D5W 900 MG in Premix 1 BAG IVPB SCH (02:30)
[2025-08-19] MEDS: Vancomycin (BATCH) 2.5 GM in Premix 1 BAG IVPB SCH (03:05)
[2025-08-19] MEDS ORDERED: Nystatin Powder 15 GM BOT TOP PRN (04:03)
[2025-08-19 04:21] VITALS: BMI 88.5
[2025-08-19 05:47] LABS: #Basophils 0.08 10x3/uL (0.0-0.2); #Eosinophils 0.26 10x3/uL (0.0-0.7); #Monocytes 0.90 10x3/uL (0.11-0.59); #Neutrophils 5.45 10x3/uL (1.40-6.50); %Basophils 0.9 % (0.0-1.0); %Eosinophils 2.9 % (0.0-10.0); %Lymphocytes 25.3 % (21.0-51.0); %Monocytes 9.9 % (0.0-10.0); %Neutrophils 59.7 % (42.0-75.0); Hematocrit 36.9 % (36.0-47.0); Hemoglobin 11.2 g/dL (12.0-16.0); Mean Corpuscular Hemoglobin 27.7 pg (27.0-31.0); Mean Corpuscular Volume 91.3 fL (78.0-98.0); Platelet Count 294 10x3/uL (130-400); Red Blood Cell (RBC) Count 4.04 mill/uL (4.20-5.40); White Blood Cell (WBC) Count 9.12 10x3/uL (4.8-10.8)
[2025-08-19] MEDS: Acetaminophen 325 MG TAB PO PRN (05:56)
[2025-08-19 05:59] LABS: Anion Gap 12 mmol/L (10-20); BUN (Urea Nitrogen) 11 mg/dL (7.0-18.7); Calc. Creatinine Clearance 465 mL/min (70-130); Calcium 8.2 mg/dL (7.8-10.44); Carbon Dioxide 23 mmol/L (22-29); Chloride 106 mmol/L (98-107); Glucose 132 mg/dL (70-105); Potassium 4.0 mmol/L (3.5-5.1); Sodium 137 mmol/L (136-145)
[2025-08-19] MEDS: Famotidine 20 MG TAB PO SCH (08:39)
[2025-08-19] MEDS: lamoTRIgine 100 MG TAB PO SCH (08:39)
[2025-08-19] MEDS ORDERED: Vancomycin (BATCH) 2.5 GM/500 ML BAG IVPB SCH (11:00)
[2025-08-19] MEDS ORDERED: HYDROcodone/Acetaminophen 7.5/325 mg Tablet PO PRN (11:09)
[2025-08-19] MEDS: Enoxaparin 40 MG (0.4 mL) SYRINGE SC SCH (11:44)
[2025-08-19] MEDS: Enoxaparin 60 MG (0.6 mL) SYRINGE SC SCH ×2 (12:01→19:54)
[2025-08-19] MEDS ORDERED: VANCOMYCIN 2 GRAM/400 ML BAG 2 GM in Premix 1 BAG IVPB SCH (14:00)
[2025-08-19] MEDS ORDERED: Vancomycin 1.5 GM / NS 500 ML VIAL-2-BAG IVPB SCH (14:00)
[2025-08-19] MEDS: Vancomycin 1.5 GM / NS 500 ML VIAL-2-BAG IVPB SCH (14:12)
[2025-08-19] MEDS: Ketorolac Tromethamine 30 MG (1 mL) VIAL IVP SCH (15:51)
[2025-08-19] MEDS: FLU (Fluarix Triv) 25-26 (6MOS UP)/PF 45 MCG/0.5 ML Syringe IM ONE (19:50)
[2025-08-20] MEDS: HYDROcodone/Acetaminophen 7.5/325 mg Tablet PO PRN (01:39)
[2025-08-20 06:48] LABS: #Basophils 0.05 10x3/uL (0.0-0.2); #Eosinophils 0.38 10x3/uL (0.0-0.7); #Monocytes 0.92 10x3/uL (0.11-0.59); #Neutrophils 4.38 10x3/uL (1.40-6.50); %Basophils 0.6 % (0.0-1.0); %Eosinophils 4.9 % (0.0-10.0); %Lymphocytes 25.0 % (21.0-51.0); %Monocytes 11.9 % (0.0-10.0); %Neutrophils 56.6 % (42.0-75.0); Hematocrit 38.2 % (36.0-47.0); Hemoglobin 11.5 g/dL (12.0-16.0); Mean Corpuscular Hemoglobin 27.4 pg (27.0-31.0); Mean Corpuscular Volume 91.2 fL (78.0-98.0); Platelet Count 288 10x3/uL (130-400); Red Blood Cell (RBC) Count 4.19 mill/uL (4.20-5.40); White Blood Cell (WBC) Count 7.75 10x3/uL (4.8-10.8)
[2025-08-20 07:00] LABS: Vancomycin, Random 15.6 ug/mL (See Comment)
[2025-08-20 07:04] LABS: Anion Gap 16 mmol/L (10-20); BUN (Urea Nitrogen) 13 mg/dL (7.0-18.7); Calc. Creatinine Clearance 465 mL/min (70-130); Calcium 8.7 mg/dL (7.8-10.44); Carbon Dioxide 23 mmol/L (22-29); Chloride 105 mmol/L (98-107); Glucose 105 mg/dL (70-105); Potassium 4.0 mmol/L (3.5-5.1); Sodium 140 mmol/L (136-145)
[2025-08-20 11:29] LABS: Vancomycin, Random 8.0 ug/mL (See Comment)
[2025-08-20] MEDS: VANCOMYCIN 2 GRAM/400 ML Premix BAG IVPB SCH (15:24)
[2025-08-20] MEDS ORDERED: oxyCODONE 5 MG TAB PO PRN (16:32)
[2025-08-20] MEDS: oxyCODONE 5 MG TAB PO PRN (16:42)
[2025-08-21 06:45] LABS: #Basophils 0.04 10x3/uL (0.0-0.2); #Eosinophils 0.37 10x3/uL (0.0-0.7); #Monocytes 0.80 10x3/uL (0.11-0.59); #Neutrophils 4.33 10x3/uL (1.40-6.50); %Basophils 0.5 % (0.0-1.0); %Eosinophils 5.0 % (0.0-10.0); %Lymphocytes 24.2 % (21.0-51.0); %Monocytes 10.8 % (0.0-10.0); %Neutrophils 58.7 % (42.0-75.0); Hematocrit 38.7 % (36.0-47.0); Hemoglobin 11.6 g/dL (12.0-16.0); Mean Corpuscular Hemoglobin 27.2 pg (27.0-31.0); Mean Corpuscular Volume 90.8 fL (78.0-98.0); Platelet Count 272 10x3/uL (130-400); Red Blood Cell (RBC) Count 4.26 mill/uL (4.20-5.40); White Blood Cell (WBC) Count 7.39 10x3/uL (4.8-10.8)
[2025-08-21 06:58] LABS: Anion Gap 13 mmol/L (10-20); BUN (Urea Nitrogen) 10 mg/dL (7.0-18.7); Calc. Creatinine Clearance 482 mL/min (70-130); Calcium 8.8 mg/dL (7.8-10.44); Carbon Dioxide 24 mmol/L (22-29); Chloride 105 mmol/L (98-107); Glucose 139 mg/dL (70-105); Potassium 4.2 mmol/L (3.5-5.1); Sodium 138 mmol/L (136-145); Vancomycin, Random 22.2 ug/mL (See Comment)
[2025-08-22 05:20] LABS: #Basophils 0.06 10x3/uL (0.0-0.2); #Eosinophils 0.36 10x3/uL (0.0-0.7); #Monocytes 0.83 10x3/uL (0.11-0.59); #Neutrophils 4.75 10x3/uL (1.40-6.50); %Basophils 0.8 % (0.0-1.0); %Eosinophils 4.5 % (0.0-10.0); %Lymphocytes 23.7 % (21.0-51.0); %Monocytes 10.5 % (0.0-10.0); %Neutrophils 59.7 % (42.0-75.0); Hematocrit 37.9 % (36.0-47.0); Hemoglobin 11.6 g/dL (12.0-16.0); Mean Corpuscular Hemoglobin 27.2 pg (27.0-31.0); Mean Corpuscular Volume 89.0 fL (78.0-98.0); Platelet Count 292 10x3/uL (130-400); Red Blood Cell (RBC) Count 4.26 mill/uL (4.20-5.40); White Blood Cell (WBC) Count 7.94 10x3/uL (4.8-10.8)
[2025-08-22 05:32] LABS: Vancomycin, Random 18.1 ug/mL (See Comment)
[2025-08-22 05:33] LABS: Anion Gap 15 mmol/L (10-20); BUN (Urea Nitrogen) 10 mg/dL (7.0-18.7); Calc. Creatinine Clearance 473 mL/min (70-130); Calcium 9.1 mg/dL (7.8-10.44); Carbon Dioxide 24 mmol/L (22-29); Chloride 103 mmol/L (98-107); Glucose 147 mg/dL (70-105); Potassium 3.8 mmol/L (3.5-5.1); Sodium 138 mmol/L (136-145)
[2025-08-22 11:49] VITALS: BMI 88.5
[2025-08-22] MEDS: Vancomycin 1.25 GM / NS 250 ML VIAL-2-BAG IVPB SCH (20:22)
[2025-08-23 05:36] LABS: #Basophils 0.06 10x3/uL (0.0-0.2); #Eosinophils 0.33 10x3/uL (0.0-0.7); #Monocytes 0.82 10x3/uL (0.11-0.59); #Neutrophils 4.72 10x3/uL (1.40-6.50); %Basophils 0.7 % (0.0-1.0); %Eosinophils 4.1 % (0.0-10.0); %Lymphocytes 26.3 % (21.0-51.0); %Monocytes 10.1 % (0.0-10.0); %Neutrophils 58.1 % (42.0-75.0); Hematocrit 36.9 % (36.0-47.0); Hemoglobin 11.3 g/dL (12.0-16.0); Mean Corpuscular Hemoglobin 27.2 pg (27.0-31.0); Mean Corpuscular Volume 88.7 fL (78.0-98.0); Platelet Count 314 10x3/uL (130-400); Red Blood Cell (RBC) Count 4.16 mill/uL (4.20-5.40); White Blood Cell (WBC) Count 8.13 10x3/uL (4.8-10.8)
[2025-08-23 05:49] LABS: Vancomycin, Random 9.3 ug/mL (See Comment)
[2025-08-23 05:54] LABS: Anion Gap 18 mmol/L (10-20); BUN (Urea Nitrogen) 13 mg/dL (7.0-18.7); Calc. Creatinine Clearance 408 mL/min (70-130); Calcium 9.0 mg/dL (7.8-10.44); Carbon Dioxide 22 mmol/L (22-29); Chloride 105 mmol/L (98-107); Glucose 194 mg/dL (70-105); Potassium 3.6 mmol/L (3.5-5.1); Sodium 141 mmol/L (136-145)
[2025-08-23] MEDS: VANCOMYCIN 2 GRAM/400 ML Premix BAG IVPB SCH ×2 (08:51→23:06)
[2025-08-23] MEDS: Ketorolac Tromethamine 30 MG (1 mL) VIAL IVP SCH (11:01)
[2025-08-23] MEDS ORDERED: VANCOMYCIN 2 GRAM/400 ML Premix BAG IVPB SCH ×3 (14:00→22:00)
[2025-08-23] MEDS: Gabapentin 300 MG CAP PO SCH (14:20)
[2025-08-24 05:18] LABS: #Basophils 0.06 10x3/uL (0.0-0.2); #Eosinophils 0.31 10x3/uL (0.0-0.7); #Monocytes 0.95 10x3/uL (0.11-0.59); #Neutrophils 5.21 10x3/uL (1.40-6.50); %Basophils 0.7 % (0.0-1.0); %Eosinophils 3.5 % (0.0-10.0); %Lymphocytes 26.7 % (21.0-51.0); %Monocytes 10.6 % (0.0-10.0); %Neutrophils 57.9 % (42.0-75.0); Hematocrit 36.4 % (36.0-47.0); Hemoglobin 11.1 g/dL (12.0-16.0); Mean Corpuscular Hemoglobin 27.3 pg (27.0-31.0); Mean Corpuscular Volume 89.4 fL (78.0-98.0); Platelet Count 327 10x3/uL (130-400); Red Blood Cell (RBC) Count 4.07 mill/uL (4.20-5.40); White Blood Cell (WBC) Count 8.98 10x3/uL (4.8-10.8)
[2025-08-24 05:29] LABS: Anion Gap 15 mmol/L (10-20); BUN (Urea Nitrogen) 15 mg/dL (7.0-18.7); Calc. Creatinine Clearance 402 mL/min (70-130); Calcium 9.2 mg/dL (7.8-10.44); Carbon Dioxide 20 mmol/L (22-29); Chloride 109 mmol/L (98-107); Glucose 158 mg/dL (70-105); Potassium 4.3 mmol/L (3.5-5.1); Sodium 140 mmol/L (136-145)
[2025-08-24] MEDS: VANCOMYCIN 2 GRAM/400 ML Premix BAG IVPB SCH (23:07)
[2025-08-25 06:48] LABS: #Basophils 0.05 10x3/uL (0.0-0.2); #Eosinophils 0.30 10x3/uL (0.0-0.7); #Monocytes 0.61 10x3/uL (0.11-0.59); #Neutrophils 3.75 10x3/uL (1.40-6.50); %Basophils 0.8 % (0.0-1.0); %Eosinophils 4.5 % (0.0-10.0); %Lymphocytes 28.4 % (21.0-51.0); %Monocytes 9.2 % (0.0-10.0); %Neutrophils 56.5 % (42.0-75.0); Hematocrit 34.1 % (36.0-47.0); Hemoglobin 10.4 g/dL (12.0-16.0); Mean Corpuscular Hemoglobin 27.3 pg (27.0-31.0); Mean Corpuscular Volume 89.5 fL (78.0-98.0); Platelet Count 280 10x3/uL (130-400); Red Blood Cell (RBC) Count 3.81 mill/uL (4.20-5.40); White Blood Cell (WBC) Count 6.63 10x3/uL (4.8-10.8)
[2025-08-25 07:07] LABS: Vancomycin, Random 18.3 ug/mL (See Comment)
[2025-08-25 07:13] LABS: Anion Gap 14 mmol/L (10-20); BUN (Urea Nitrogen) 12 mg/dL (7.0-18.7); Calc. Creatinine Clearance 435 mL/min (70-130); Calcium 8.9 mg/dL (7.8-10.44); Carbon Dioxide 23 mmol/L (22-29); Chloride 106 mmol/L (98-107); Glucose 170 mg/dL (70-105); Potassium 3.7 mmol/L (3.5-5.1); Sodium 139 mmol/L (136-145)
[2025-08-26 06:16] LABS: #Basophils 0.03 10x3/uL (0.0-0.2); #Eosinophils 0.27 10x3/uL (0.0-0.7); #Monocytes 0.69 10x3/uL (0.11-0.59); #Neutrophils 3.92 10x3/uL (1.40-6.50); %Basophils 0.4 % (0.0-1.0); %Eosinophils 4.0 % (0.0-10.0); %Lymphocytes 25.9 % (21.0-51.0); %Monocytes 10.3 % (0.0-10.0); %Neutrophils 58.8 % (42.0-75.0); Hematocrit 34.7 % (36.0-47.0); Hemoglobin 10.8 g/dL (12.0-16.0); Mean Corpuscular Hemoglobin 27.6 pg (27.0-31.0); Mean Corpuscular Volume 88.7 fL (78.0-98.0); Platelet Count 298 10x3/uL (130-400); Red Blood Cell (RBC) Count 3.91 mill/uL (4.20-5.40); White Blood Cell (WBC) Count 6.68 10x3/uL (4.8-10.8)
[2025-08-26 06:37] LABS: Anion Gap 13 mmol/L (10-20); BUN (Urea Nitrogen) 8 mg/dL (7.0-18.7); Calc. Creatinine Clearance 465 mL/min (70-130); Calcium 8.8 mg/dL (7.8-10.44); Carbon Dioxide 22 mmol/L (22-29); Chloride 106 mmol/L (98-107); Glucose 168 mg/dL (70-105); Potassium 3.6 mmol/L (3.5-5.1); Sodium 137 mmol/L (136-145)
[2025-08-26 19:32] VITALS: TEMP 98
[2025-08-26 20:11] VITALS: BP 184/99
== END 2025-08-26 21:29 | disposition home or self-care (01) | DRG 579 ==
LOC: ERS 19:32 → SDC 08-19 00:11 → T4-B 08-19 00:13
PROVIDERS: ADMIT Surgery Trauma Surgery; ATTEND Surgery Trauma Surgery
PROC: 0W9F0ZZ Drainage of Abdominal Wall, Open Approach (ICD-10-PCS; principal; 2025-08-19)
DX: L03.311 Cellulitis of abdominal wall (principal); M72.6 Necrotizing fasciitis; Z68.45 Body mass index [BMI] 70 or greater, adult; I10 Essential (primary) hypertension; E78.5 Hyperlipidemia, unspecified; E11.9 Type 2 diabetes mellitus without complications; F41.9 Anxiety disorder, unspecified; F32.A Depression, unspecified; E66.01 Morbid (severe) obesity due to excess calories; G43.909 Migraine, unspecified, not intractable, without status migrainosus; N83.209 Unspecified ovarian cyst, unspecified side; K76.0 Fatty (change of) liver, not elsewhere classified; I25.10 Atherosclerotic heart disease of native coronary artery without angina pectoris; Z87.891 Personal history of nicotine dependence; Z98.1 Arthrodesis status; Z90.49 Acquired absence of other specified parts of digestive tract; Z90.710 Acquired absence of both cervix and uterus; Z98.51 Tubal ligation status; Z98.891 History of uterine scar from previous surgery; Z88.4 Allergy status to anesthetic agent
CPT/HCPCS: 36415; 36416; 51702; 74018; 76705; 80048; 80053; 80202; 83605; 83690; 83735; 84145; 84443; 84703; 85025; 86141; 87040; 87070; 87205; 96374; 96375; 97139; A4314; J0360; J1171; J1650; J1885; J2270; J2272; J2405; J2543; J3010; J3373; J3375; J3490; J7030; J7050; J7120

== ENCOUNTER 2025-09-11 19:52 | Inpatient (IN) | payer MEDICAID ==
[2025-09-11 20:42] LABS: #Basophils 0.05 10x3/uL (0.0-0.2); #Eosinophils 0.29 10x3/uL (0.0-0.7); #Monocytes 0.87 10x3/uL (0.11-0.59); #Neutrophils 5.46 10x3/uL (1.40-6.50); %Basophils 0.6 % (0.0-1.0); %Eosinophils 3.2 % (0.0-10.0); %Lymphocytes 24.5 % (21.0-51.0); %Monocytes 9.7 % (0.0-10.0); %Neutrophils 61.2 % (42.0-75.0); Hematocrit 37.0 % (36.0-47.0); Hemoglobin 11.2 g/dL (12.0-16.0); Mean Corpuscular Hemoglobin 27.1 pg (27.0-31.0); Mean Corpuscular Volume 89.4 fL (78.0-98.0); Platelet Count 287 10x3/uL (130-400); Red Blood Cell (RBC) Count 4.14 mill/uL (4.20-5.40); White Blood Cell (WBC) Count 8.93 10x3/uL (4.8-10.8)
[2025-09-11] MEDS ORDERED: Acetaminophen 500 MG TAB ONE (20:48)
[2025-09-11] MEDS ORDERED: Ketorolac Tromethamine 30 MG (1 mL) VIAL ONE (20:48)
[2025-09-11 20:56] LABS: ALT (SGPT) 40 U/L (Less than 34); AST (SGOT) 60 U/L (11-34); Albumin 3.2 g/dL (3.1-4.5); Alkaline Phosphatase 79 U/L (40-110); Anion Gap 12 mmol/L (10-20); BUN (Urea Nitrogen) 12 mg/dL (7.0-18.7); Bilirubin, Total 0.1 mg/dL (0.3-1.2); Calc. Creatinine Clearance 0 mL/min (70-130); Calcium 9.2 mg/dL (7.8-10.44); Carbon Dioxide 25 mmol/L (22-29); Chloride 105 mmol/L (98-107); Globulin 4.4 g/dL (2.4-3.5); Glucose 281 mg/dL (70-105); Potassium 4.4 mmol/L (3.5-5.1); Sodium 138 mmol/L (136-145)
[2025-09-11] MEDS ORDERED: cefTRIAXone (ROCEPHIN) 2 GM VIAL ONE (22:41)
[2025-09-11] MEDS ORDERED: Melatonin 3 MG TAB PO PRN (23:01)
[2025-09-11] MEDS ORDERED: Dextrose 50% Abboject 50 ML SYRINGE SLOW IVP PRN (23:01)
[2025-09-11] MEDS ORDERED: Guaifenesin DM 100-10/5 ML UDCUP PO PRN (23:01)
[2025-09-11] MEDS ORDERED: Glucagon 1 MG/ML KIT IM PRN (23:01)
[2025-09-11] MEDS ORDERED: Ondansetron PF 4 MG/2 ML Vial IVP PRN (23:01)
[2025-09-11] MEDS: Vancomycin (BATCH) 2.5 GM in Premix 1 BAG IVPB SCH (23:55)
[2025-09-12] MEDS: diphenhydrAMINE 50 MG/ML VIAL IVP SCH (00:29)
[2025-09-12] MEDS ORDERED: Benzocaine/Menthol 1 LOZ LOZ PO PRN (00:33)
[2025-09-12] MEDS ORDERED: Artificial Tear Ophth Sol 15 ML BOT EA EYE PRN (00:33)
[2025-09-12 02:34] VITALS: BMI 70.8
[2025-09-12] MEDS: Acetaminophen 500 MG TAB PO PRN (02:39)
[2025-09-12 08:13] LABS: #Basophils 0.07 10x3/uL (0.0-0.2); #Eosinophils 0.36 10x3/uL (0.0-0.7); #Monocytes 0.66 10x3/uL (0.11-0.59); #Neutrophils 5.01 10x3/uL (1.40-6.50); %Basophils 0.9 % (0.0-1.0); %Eosinophils 4.5 % (0.0-10.0); %Lymphocytes 23.6 % (21.0-51.0); %Monocytes 8.2 % (0.0-10.0); %Neutrophils 61.9 % (42.0-75.0); Hematocrit 34.5 % (36.0-47.0); Hemoglobin 10.6 g/dL (12.0-16.0); Mean Corpuscular Hemoglobin 27.6 pg (27.0-31.0); Mean Corpuscular Volume 89.8 fL (78.0-98.0); Platelet Count 259 10x3/uL (130-400); Red Blood Cell (RBC) Count 3.84 mill/uL (4.20-5.40); White Blood Cell (WBC) Count 8.08 10x3/uL (4.8-10.8)
[2025-09-12 08:26] LABS: Vancomycin, Random 10.3 ug/mL (See Comment)
[2025-09-12 08:33] LABS: ALT (SGPT) 41 U/L (Less than 34); AST (SGOT) 71 U/L (11-34); Albumin 3.0 g/dL (3.1-4.5); Alkaline Phosphatase 74 U/L (40-110); Anion Gap 17 mmol/L (10-20); BUN (Urea Nitrogen) 14 mg/dL (7.0-18.7); Bilirubin, Total 0.2 mg/dL (0.3-1.2); Calc. Creatinine Clearance 353 mL/min (70-130); Calcium 8.7 mg/dL (7.8-10.44); Carbon Dioxide 23 mmol/L (22-29); Chloride 103 mmol/L (98-107); Globulin 4.2 g/dL (2.4-3.5); Glucose 191 mg/dL (70-105); Potassium 4.0 mmol/L (3.5-5.1); Sodium 139 mmol/L (136-145)
[2025-09-12] MEDS ORDERED: (Cariprazine Hcl [Vraylar] 1.5 MG Capsule) PO SCH (09:00)
[2025-09-12] MEDS: Naproxen 500 MG TAB PO SCH (09:03)
[2025-09-12] MEDS: Gabapentin 300 MG CAP PO SCH (09:04)
[2025-09-12] MEDS: lamoTRIgine 100 MG TAB PO SCH (09:05)
[2025-09-12] MEDS: Enoxaparin 60 MG (0.6 mL) SYRINGE SC SCH (11:16)
[2025-09-12] MEDS: FLU (Fluarix Triv) 25-26 (6MOS UP)/PF 45 MCG/0.5 ML Syringe IM ONE (11:19)
[2025-09-12 15:01] VITALS: BMI 70.8
[2025-09-12] MEDS: Clotrimazole 1 % Cream 30 GM TUBE TOP SCH (16:21)
[2025-09-12] MEDS: cefTRIAXone\\ROCEPHIN 2 GM in Sodium Chloride 0.9% 100 ML IVPB SCH (23:15)
[2025-09-13 05:27] LABS: #Basophils 0.05 10x3/uL (0.0-0.2); #Eosinophils 0.34 10x3/uL (0.0-0.7); #Monocytes 0.62 10x3/uL (0.11-0.59); #Neutrophils 3.92 10x3/uL (1.40-6.50); %Basophils 0.7 % (0.0-1.0); %Eosinophils 5.1 % (0.0-10.0); %Lymphocytes 25.7 % (21.0-51.0); %Monocytes 9.3 % (0.0-10.0); %Neutrophils 58.5 % (42.0-75.0); Hematocrit 34.7 % (36.0-47.0); Hemoglobin 10.5 g/dL (12.0-16.0); Mean Corpuscular Hemoglobin 27.0 pg (27.0-31.0); Mean Corpuscular Volume 89.2 fL (78.0-98.0); Platelet Count 287 10x3/uL (130-400); Red Blood Cell (RBC) Count 3.89 mill/uL (4.20-5.40); White Blood Cell (WBC) Count 6.70 10x3/uL (4.8-10.8)
[2025-09-13 05:51] LABS: ALT (SGPT) 40 U/L (Less than 34); AST (SGOT) 69 U/L (11-34); Albumin 3.0 g/dL (3.1-4.5); Alkaline Phosphatase 72 U/L (40-110); Anion Gap 9 mmol/L (10-20); BUN (Urea Nitrogen) 14 mg/dL (7.0-18.7); Bilirubin, Total 0.1 mg/dL (0.3-1.2); Calc. Creatinine Clearance 337 mL/min (70-130); Calcium 8.7 mg/dL (7.8-10.44); Carbon Dioxide 24 mmol/L (22-29); Chloride 107 mmol/L (98-107); Globulin 4.0 g/dL (2.4-3.5); Glucose 209 mg/dL (70-105); Potassium 3.9 mmol/L (3.5-5.1); Sodium 136 mmol/L (136-145)
[2025-09-13] MEDS: Gabapentin 300 MG CAP PO SCH (09:42)
[2025-09-13] MEDS: Clotrimazole 1 % Cream 30 GM TUBE TOP SCH (09:43)
[2025-09-13] MEDS: Lisinopril 20 MG TAB PO SCH (12:43)
[2025-09-14 06:54] LABS: ALT (SGPT) 40 U/L (Less than 34); AST (SGOT) 63 U/L (11-34); Albumin 2.9 g/dL (3.1-4.5); Alkaline Phosphatase 75 U/L (40-110); Anion Gap 11 mmol/L (10-20); BUN (Urea Nitrogen) 12 mg/dL (7.0-18.7); Bilirubin, Total 0.2 mg/dL (0.3-1.2); Calc. Creatinine Clearance 424 mL/min (70-130); Calcium 8.8 mg/dL (7.8-10.44); Carbon Dioxide 23 mmol/L (22-29); Chloride 107 mmol/L (98-107); Globulin 3.9 g/dL (2.4-3.5); Glucose 155 mg/dL (70-105); Potassium 4.4 mmol/L (3.5-5.1); Sodium 137 mmol/L (136-145)
[2025-09-14 07:01] LABS: #Basophils 0.05 10x3/uL (0.0-0.2); #Eosinophils 0.32 10x3/uL (0.0-0.7); #Monocytes 0.79 10x3/uL (0.11-0.59); #Neutrophils 4.77 10x3/uL (1.40-6.50); %Basophils 0.7 % (0.0-1.0); %Eosinophils 4.2 % (0.0-10.0); %Lymphocytes 21.6 % (21.0-51.0); %Monocytes 10.4 % (0.0-10.0); %Neutrophils 62.4 % (42.0-75.0); Hematocrit 36.1 % (36.0-47.0); Hemoglobin 10.9 g/dL (12.0-16.0); Mean Corpuscular Hemoglobin 26.9 pg (27.0-31.0); Mean Corpuscular Volume 89.1 fL (78.0-98.0); Platelet Count 258 10x3/uL (130-400); Red Blood Cell (RBC) Count 4.05 mill/uL (4.20-5.40); White Blood Cell (WBC) Count 7.63 10x3/uL (4.8-10.8)
[2025-09-14] MEDS: Lisinopril 20 MG TAB PO SCH (08:50)
[2025-09-14] MEDS: Cephalexin 250 MG CAP PO SCH ×2 (11:04→20:16)
[2025-09-15 04:58] LABS: #Basophils 0.05 10x3/uL (0.0-0.2); #Eosinophils 0.30 10x3/uL (0.0-0.7); #Monocytes 0.72 10x3/uL (0.11-0.59); #Neutrophils 4.97 10x3/uL (1.40-6.50); %Basophils 0.6 % (0.0-1.0); %Eosinophils 3.9 % (0.0-10.0); %Lymphocytes 20.7 % (21.0-51.0); %Monocytes 9.3 % (0.0-10.0); %Neutrophils 64.5 % (42.0-75.0); Hematocrit 37.8 % (36.0-47.0); Hemoglobin 11.4 g/dL (12.0-16.0); Mean Corpuscular Hemoglobin 26.8 pg (27.0-31.0); Mean Corpuscular Volume 88.9 fL (78.0-98.0); Platelet Count 261 10x3/uL (130-400); Red Blood Cell (RBC) Count 4.25 mill/uL (4.20-5.40); White Blood Cell (WBC) Count 7.72 10x3/uL (4.8-10.8)
[2025-09-15 05:26] LABS: ALT (SGPT) 39 U/L (Less than 34); AST (SGOT) 61 U/L (11-34); Albumin 3.0 g/dL (3.1-4.5); Alkaline Phosphatase 78 U/L (40-110); Anion Gap 12 mmol/L (10-20); BUN (Urea Nitrogen) 11 mg/dL (7.0-18.7); Bilirubin, Total 0.1 mg/dL (0.3-1.2); Calc. Creatinine Clearance 348 mL/min (70-130); Calcium 9.2 mg/dL (7.8-10.44); Carbon Dioxide 26 mmol/L (22-29); Chloride 102 mmol/L (98-107); Globulin 4.2 g/dL (2.4-3.5); Glucose 258 mg/dL (70-105); Potassium 4.4 mmol/L (3.5-5.1); Sodium 136 mmol/L (136-145)
[2025-09-15 16:01] VITALS: BP 128/83; TEMP 97.9
== END 2025-09-15 19:30 | disposition home or self-care (01) | DRG 603 ==
LOC: ERS 19:52 → SURG B 22:53 → OBSVTOIN 23:00
PROVIDERS: ADMIT Family Medicine; ATTEND Family Medicine
PROC: 3E03329 Introduction of Other Anti-infective into Peripheral Vein, Percutaneous Approach (ICD-10-PCS; principal; 2025-09-11)
PROC: 3E0234Z Introduction of Serum, Toxoid and Vaccine into Muscle, Percutaneous Approach (ICD-10-PCS; 2025-09-12)
DX: L03.311 Cellulitis of abdominal wall (principal); E87.20 Acidosis, unspecified; I50.32 Chronic diastolic (congestive) heart failure; Z68.45 Body mass index [BMI] 70 or greater, adult; R00.0 Tachycardia, unspecified; D64.9 Anemia, unspecified; L30.4 Erythema intertrigo; R10.9 Unspecified abdominal pain; R74.01 Elevation of levels of liver transaminase levels; R11.2 Nausea with vomiting, unspecified; E78.5 Hyperlipidemia, unspecified; Z88.8 Allergy status to other drugs, medicaments and biological substances; Z79.899 Other long term (current) drug therapy; I11.0 Hypertensive heart disease with heart failure; F32.A Depression, unspecified; Z98.890 Other specified postprocedural states; E11.65 Type 2 diabetes mellitus with hyperglycemia; E66.01 Morbid (severe) obesity due to excess calories; Z23 Encounter for immunization
CPT/HCPCS: 36415; 36416; 80053; 80202; 83605; 85025; 87040; 90656; 93005; 96365; 96375; 97139; J0696; J1200; J1650; J1815; J1885; J2270; J2272; J3373; J7030

== ENCOUNTER 2025-09-17 15:25 | Emergency (ER) | payer MEDICAID ==
[2025-09-17 19:05] LABS: #Basophils 0.08 10x3/uL (0.0-0.2); #Eosinophils 0.38 10x3/uL (0.0-0.7); #Monocytes 1.11 10x3/uL (0.11-0.59); #Neutrophils 6.80 10x3/uL (1.40-6.50); %Basophils 0.7 % (0.0-1.0); %Eosinophils 3.4 % (0.0-10.0); %Lymphocytes 23.3 % (21.0-51.0); %Monocytes 10.0 % (0.0-10.0); %Neutrophils 61.7 % (42.0-75.0); Hematocrit 37.1 % (36.0-47.0); Hemoglobin 11.3 g/dL (12.0-16.0); Mean Corpuscular Hemoglobin 26.8 pg (27.0-31.0); Mean Corpuscular Volume 87.9 fL (78.0-98.0); Platelet Count 291 10x3/uL (130-400); Red Blood Cell (RBC) Count 4.22 mill/uL (4.20-5.40); White Blood Cell (WBC) Count 11.05 10x3/uL (4.8-10.8)
[2025-09-17 19:33] LABS: ALT (SGPT) 49 U/L (Less than 34); AST (SGOT) 77 U/L (11-34); Albumin 3.3 g/dL (3.1-4.5); Alkaline Phosphatase 81 U/L (40-110); Anion Gap 20 mmol/L (10-20); BUN (Urea Nitrogen) 15 mg/dL (7.0-18.7); Bilirubin, Total 0.2 mg/dL (0.3-1.2); Calc. Creatinine Clearance 0 mL/min (70-130); Calcium 9.3 mg/dL (7.8-10.44); Carbon Dioxide 23 mmol/L (22-29); Chloride 103 mmol/L (98-107); Globulin 4.6 g/dL (2.4-3.5); Glucose 163 mg/dL (70-105); Lipase 21 U/L (8-78); Potassium 4.1 mmol/L (3.5-5.1); Sodium 142 mmol/L (136-145)
[2025-09-17] MEDS ORDERED: cefTRIAXone (ROCEPHIN) 2 GM VIAL ONE (20:35)
[2025-09-17] MEDS ORDERED: HYDROmorphone 0.5 MG/0.5 ML SYRINGE ONE (20:35)
[2025-09-17 22:34] LABS: Bacteria/HPF None Seen HPF (None Seen); Glucose, Urine (Dipstick) Normal (Negative); Leukocyte Negative Leu/uL (Negative); Protein, Urine (Dipstick) 20 mg/dL (Neg-Trace); RBC/HPF None Seen HPF (0-3); Specific Gravity, Urine 1.030 (1.002-1.036); WBC/HPF None Seen HPF (0-3)
== END 2025-09-18 04:12 | disposition home or self-care (01) ==
LOC: ERS 15:25
DX: L03.311 Cellulitis of abdominal wall (principal); I10 Essential (primary) hypertension; E11.9 Type 2 diabetes mellitus without complications; E78.5 Hyperlipidemia, unspecified; F17.210 Nicotine dependence, cigarettes, uncomplicated; Z79.899 Other long term (current) drug therapy
CPT/HCPCS: 80053; 81001; 83605; 83690; 85025; 87040; 87086; 87149; 87428; 96365; 96366; 96375; 96376; J0696; J1171; J2270

== ENCOUNTER 2025-09-20 08:50 | Inpatient (IN) | payer MEDICAID ==
[2025-09-20 09:54] LABS: Bacteria/HPF None Seen HPF (None Seen); CAUTI Indications for Culture Alt mental st,lethar; Glucose, Urine (Dipstick) Greater than 1000 mg/dL (Negative); Leukocyte Negative Leu/uL (Negative); Protein, Urine (Dipstick) Negative (Neg-Trace); RBC/HPF 0-3 HPF (0-3); Specific Gravity, Urine 1.025 (1.002-1.036); WBC/HPF None Seen HPF (0-3)
[2025-09-20 09:55] LABS: Urine Culture Reflex No No
[2025-09-20 10:30] LABS: #Basophils 0.05 10x3/uL (0.0-0.2); #Eosinophils 0.26 10x3/uL (0.0-0.7); #Monocytes 0.86 10x3/uL (0.11-0.59); #Neutrophils 5.72 10x3/uL (1.40-6.50); %Basophils 0.6 % (0.0-1.0); %Eosinophils 3.0 % (0.0-10.0); %Lymphocytes 19.1 % (21.0-51.0); %Monocytes 9.8 % (0.0-10.0); %Neutrophils 65.3 % (42.0-75.0); Hematocrit 34.0 % (36.0-47.0); Hemoglobin 10.2 g/dL (12.0-16.0); Mean Corpuscular Hemoglobin 26.8 pg (27.0-31.0); Mean Corpuscular Volume 89.5 fL (78.0-98.0); Platelet Count 230 10x3/uL (130-400); Red Blood Cell (RBC) Count 3.80 mill/uL (4.20-5.40); White Blood Cell (WBC) Count 8.75 10x3/uL (4.8-10.8)
[2025-09-20] MEDS ORDERED: Cefepime 2 GM VIAL ONE (10:42)
[2025-09-20] MEDS ORDERED: Ondansetron PF 4 MG/2 ML Vial ONE (10:42)
[2025-09-20 10:43] LABS: INR-International Normal Ratio 1.1; PTT 29.2 sec (22.9-36.1); Prothrombin Time 14.4 sec (12.0-14.7)
[2025-09-20 10:47] LABS: ALT (SGPT) 47 U/L (Less than 34); AST (SGOT) 64 U/L (11-34); Albumin 3.1 g/dL (3.1-4.5); Alkaline Phosphatase 78 U/L (40-110); Anion Gap 14 mmol/L (10-20); BUN (Urea Nitrogen) 12 mg/dL (7.0-18.7); Bilirubin, Total 0.2 mg/dL (0.3-1.2); Calc. Creatinine Clearance 0 mL/min (70-130); Calcium 8.8 mg/dL (7.8-10.44); Carbon Dioxide 24 mmol/L (22-29); Chloride 104 mmol/L (98-107); Globulin 3.8 g/dL (2.4-3.5); Glucose 287 mg/dL (70-105); Potassium 4.4 mmol/L (3.5-5.1); Sodium 138 mmol/L (136-145)
[2025-09-20] MEDS ORDERED: VANCOMYCIN 2 GRAM/400 ML BAG 400 ML ONE (11:11)
[2025-09-20] MEDS: Clindamycin/D5W 900 MG in Premix 1 BAG IVPB SCH (14:39)
[2025-09-20] MEDS ORDERED: Dextrose 50% Abboject 50 ML SYRINGE SLOW IVP PRN (15:32)
[2025-09-20] MEDS ORDERED: Glucagon 1 MG/ML KIT IM PRN (15:32)
[2025-09-20] MEDS: Acetaminophen 500 MG TAB PO PRN (15:59)
[2025-09-20] MEDS ORDERED: Acetaminophen 500 MG TAB PO PRN (16:13)
[2025-09-20] MEDS ORDERED: Nitroglycerin 0.4 MG TAB (25 Tab Bottle) SL PRN (16:14)
[2025-09-20] MEDS ORDERED: Artificial Tear Ophth Sol 15 ML BOT EA EYE PRN (16:14)
[2025-09-20] MEDS ORDERED: Nystatin Powder 15 GM BOT TOP PRN (16:14)
[2025-09-20] MEDS: HYDROcodone/Acetaminophen 5/325 mg Tablet PO PRN (16:35)
[2025-09-20] MEDS ORDERED: Acetaminophen 325 MG TAB PO PRN (20:00)
[2025-09-20] MEDS: Enoxaparin 40 MG (0.4 mL) SYRINGE SC SCH (20:30)
[2025-09-20] MEDS: Cephalexin 250 MG CAP PO SCH (20:31)
[2025-09-20] MEDS: Gabapentin 300 MG CAP PO SCH (20:31)
[2025-09-20] MEDS: lamoTRIgine 100 MG TAB PO SCH (20:31)
[2025-09-20] MEDS: Ibuprofen 800 MG TAB PO PRN (23:11)
[2025-09-21] MEDS: Gabapentin 300 MG CAP PO SCH (05:46)
[2025-09-21 05:48] LABS: #Basophils 0.05 10x3/uL (0.0-0.2); #Eosinophils 0.30 10x3/uL (0.0-0.7); #Monocytes 0.79 10x3/uL (0.11-0.59); #Neutrophils 5.28 10x3/uL (1.40-6.50); %Basophils 0.6 % (0.0-1.0); %Eosinophils 3.6 % (0.0-10.0); %Lymphocytes 21.8 % (21.0-51.0); %Monocytes 9.4 % (0.0-10.0); %Neutrophils 62.9 % (42.0-75.0); Hematocrit 34.8 % (36.0-47.0); Hemoglobin 10.6 g/dL (12.0-16.0); Mean Corpuscular Hemoglobin 27.0 pg (27.0-31.0); Mean Corpuscular Volume 88.8 fL (78.0-98.0); Platelet Count 294 10x3/uL (130-400); Red Blood Cell (RBC) Count 3.92 mill/uL (4.20-5.40); White Blood Cell (WBC) Count 8.39 10x3/uL (4.8-10.8)
[2025-09-21 05:59] LABS: ALT (SGPT) 51 U/L (Less than 34); AST (SGOT) 87 U/L (11-34); Albumin 3.0 g/dL (3.1-4.5); Alkaline Phosphatase 77 U/L (40-110); Anion Gap 15 mmol/L (10-20); BUN (Urea Nitrogen) 12 mg/dL (7.0-18.7); Bilirubin, Total 0.1 mg/dL (0.3-1.2); Calc. Creatinine Clearance 215 mL/min (70-130); Calcium 8.9 mg/dL (7.8-10.44); Carbon Dioxide 23 mmol/L (22-29); Chloride 102 mmol/L (98-107); Globulin 4.4 g/dL (2.4-3.5); Glucose 147 mg/dL (70-105); Potassium 3.9 mmol/L (3.5-5.1); Sodium 136 mmol/L (136-145)
[2025-09-21 07:09] VITALS: BMI 80.6
[2025-09-21 07:41] VITALS: TEMP 97.9
[2025-09-21] MEDS: Lisinopril 20 MG TAB PO SCH (09:10)
[2025-09-21 11:51] VITALS: BP 161/84
[2025-09-21] MEDS ORDERED: Enoxaparin 60 MG (0.6 mL) SYRINGE SC SCH (21:00)
== END 2025-09-21 15:10 | disposition home or self-care (01) | DRG 603 ==
LOC: ERS 08:50 → T4-A 14:10
PROVIDERS: ADMIT Internal Medicine; ATTEND Internal Medicine
DX: L03.311 Cellulitis of abdominal wall (principal); I50.32 Chronic diastolic (congestive) heart failure; R00.0 Tachycardia, unspecified; E11.9 Type 2 diabetes mellitus without complications; E66.9 Obesity, unspecified; E78.5 Hyperlipidemia, unspecified; K21.9 Gastro-esophageal reflux disease without esophagitis; F31.9 Bipolar disorder, unspecified; I11.0 Hypertensive heart disease with heart failure; Z98.890 Other specified postprocedural states; Z87.891 Personal history of nicotine dependence; R74.01 Elevation of levels of liver transaminase levels; Z88.8 Allergy status to other drugs, medicaments and biological substances
CPT/HCPCS: 36415; 36416; 74018; 80053; 81001; 83605; 84484; 85025; 85610; 85730; 87040; 87070; 87077; 87205; 93005; 94760; 96365; 96366; 96367; 96368; 96375; 96376; 97139; J0692; J1650; J1815; J2270; J2272; J2405; J3375; J3490

== ENCOUNTER 2025-09-28 20:07 | Emergency (ER) | payer MEDICAID ==
[2025-09-28] MEDS ORDERED: Ketorolac Tromethamine 30 MG (1 mL) VIAL ONE ×2 (21:02→22:21)
[2025-09-28 21:43] LABS: #Basophils 0.05 10x3/uL (0.0-0.2); #Eosinophils 0.33 10x3/uL (0.0-0.7); #Monocytes 0.79 10x3/uL (0.11-0.59); #Neutrophils 4.90 10x3/uL (1.40-6.50); %Basophils 0.6 % (0.0-1.0); %Eosinophils 3.9 % (0.0-10.0); %Lymphocytes 27.6 % (21.0-51.0); %Monocytes 9.3 % (0.0-10.0); %Neutrophils 57.7 % (42.0-75.0); Hematocrit 36.1 % (36.0-47.0); Hemoglobin 11.4 g/dL (12.0-16.0); Mean Corpuscular Hemoglobin 27.6 pg (27.0-31.0); Mean Corpuscular Volume 87.4 fL (78.0-98.0); Platelet Count 316 10x3/uL (130-400); Red Blood Cell (RBC) Count 4.13 mill/uL (4.20-5.40); White Blood Cell (WBC) Count 8.50 10x3/uL (4.8-10.8)
[2025-09-28 21:58] LABS: ALT (SGPT) 54 U/L (Less than 34); AST (SGOT) 95 U/L (11-34); Albumin 3.3 g/dL (3.1-4.5); Alkaline Phosphatase 80 U/L (40-110); Anion Gap 13 mmol/L (10-20); BUN (Urea Nitrogen) 16 mg/dL (7.0-18.7); Bilirubin, Total 0.2 mg/dL (0.3-1.2); Calc. Creatinine Clearance 0 mL/min (70-130); Calcium 9.3 mg/dL (7.8-10.44); Carbon Dioxide 24 mmol/L (22-29); Chloride 103 mmol/L (98-107); Globulin 4.6 g/dL (2.4-3.5); Glucose 192 mg/dL (70-105); Potassium 4.1 mmol/L (3.5-5.1); Sodium 136 mmol/L (136-145)
== END 2025-09-28 22:35 | disposition home or self-care (01) ==
LOC: ERS 20:07
DX: M79.3 Panniculitis, unspecified (principal); R94.5 Abnormal results of liver function studies; I10 Essential (primary) hypertension; E11.9 Type 2 diabetes mellitus without complications; E66.01 Morbid (severe) obesity due to excess calories; Z55.6 Problems related to health literacy; Z87.891 Personal history of nicotine dependence; Z68.45 Body mass index [BMI] 70 or greater, adult
CPT/HCPCS: 80053; 83605; 84702; 85025; 96374; 96375; 96376; J1885; J2270